=== PATIENT | female | born 1990 | race Caucasian/White ===

== ENCOUNTER 2021-03-19 12:52 | Emergency (ER) | payer SELFPAY ==
--- OUTSIDE RECORDS SUMMARY | 2021-03-19 12:55 | XMS REPORT | Continuity of Care Document ---
:1990 Author Organization [facility] t Address 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 Attending Clinician Problems Condition Condition Condition Status Onset Resolution Last Treating Co mments Source Name Details Category Date Date Treatment Clinician Date Chronic Chronic Disease Active Univers migraine migraine 10-17 ity of without without 00:00: [place] aura aura 00 Medical without without Branch status status migrainosu migrainosu s, not s, not intractabl intractabl e e Subacute Subacute Disease Active Unive rs maxillary maxillary 10-17 [place] of sinusitis [place]itis [place] Dental Dental Disease Active Univers caries caries 10-17 ity of 00:00: [place] 00 Medical Branch Nicotine Nicotine Disease Active Overview: Un marichuy dependence dependence 11-06 Formattin ity of with with 00:00: g of this [place] current current 00 note Medical use use might be Branch different from the original. 1 pack per day since 16 years old (10 pack-year as of 11/05) Chronic Chronic Disease Active Overview: Univ ers fatigue fatigue 11-06 Formattin ity o f 00:00: g of this [place] 00 note Medical might be Branch different from the original. Will be evaluated by GI in 11/2016 for associate d bowel issues and then hematolog y Generalize Generalize Disease Active U nivers d anxiety d anxiety 5-15 ity of disorder disorder 00:00: [place] 00 Medical Branch Abdominal Abdominal Disease Active Uni vers pain, pain, 5-01 ity of chronic, chronic, 00:00: [place] left lower left lower 00 Me dical quadrant quadrant Branch Leukocytos Leukocytos Disease Active U nivers is is 5-01 ity of 00:00: [place] 00 Medical Branch Obesity Obesity Disease Active Univers (BMI (BMI 3-09 ity of 30-39.9) 30-39.9) 00:00: [place] 00 Medical Branch Allergies, Adverse Reactions, Alerts Allergy Allergy Status Severity Reaction(s) Onset Inactive Treating Comm ents Source Name Type Date Date Clinician Metronid Propensi Active Dizziness Uni vers azole ty to 3-20 ity of adverse 00:00: [place] reaction 00 Medical s Branch METRONID DRUG Active Dizziness Unive rs AZOLE INGREDI 3-20 ity of 00:00: [place] 00 Medical Branch Social History Social Habit Start Date Stop Date Quantity Comments Source History of Cigarette Smoker Universi ty of tobacco use [facility] Exposure to Not sure University of SARS-CoV-2 [facility] (event) Branch Alcohol intake 2021-02-15 2021-02-15 0 /d University of 00:00:00 00:00:00 [facility] Tobacco use and 2015-08-30 2015-08-30 Never used Universit y of exposure 00:00:00 00:00:00 [facility] Sex Assigned At [birth year] Universit y of 00:00:00 00:00:00 [facility] Smoking Status Start Date Stop Date Source Current every day smoker 2015-08-30 00:00:00 Uni versity of [facility] Medications Ordered Filled Start Stop Current Ordering Indication Dosage Frequency Signature Comments Components Source Medication Medication Date Date Medication? Clinician (SIG) Name Name benzonatate 2020-04 Yes [id number] 100mg Take 1 Univers 100 mg 0-28 capsule by ity of capsule 00:00: mouth 3 [place] (three) Medical times Branch daily as needed for Cough. albuterol 2020-04 Yes [id number] 2{puff} Inhale 2 Univers 90 0-28 Puffs ity of mcg/actuati 00:00: every 4 [place] as on inhaler 00 (four) Medical hours as Branch needed for Wheezing or Shortness of Breath. bromphenira 2020-04- Yes [id number] 5mL Take 5 mL Univers mine-pseudo 0-26 02-24 by mouth 4 i ty of ephedrine-D 00:00: 04:59 (four) [place] as M (BROMFED 00 :00 times Medical DM) 2-30-10 daily as Bran ch mg/5 mL needed for syrup Congestion /Allergies or Cough for up to 10 days. bromphenira 2020-04- Yes [id number] 5mL Take 5 mL Univers mine-pseudo 0-26 02-24 by mouth 4 i ty of ephedrine-D 00:00: 04:59 (four) [place] M (BROMFED 00 :00 times Medical DM) 2-30-10 daily as Bran ch mg/5 mL needed for syrup Congestion /Allergies or Cough for up to 10 days. butalbital- Yes [id number] 1{capsu Take 1 Univers aspirin-caf 6-29 le} capsule by it y of feine 00:00: mouth [place] 50-325-40 00 every 6 Medical mg per (six) Branch capsule hours as needed for Pain (Migraine MORGAN). amoxicillin Yes [id number] 1{tbl} Take 1 Univers -clavulanat 6-29 tablet by ity of e 00:00: mouth 2 [place] (AUGMENTIN) 00 (two) Medical 875-125 mg times Branch per tablet daily. nicotine 14 Yes [id number] 1{patch Apply 1 Univers mg/24 hr 6-29 } Patch to ity of patch 00:00: area(s) [place] 00 every 24 Medical (twenty-fo Branch ur) hours. Apply 21mg patch daily x 6 weeks; then apply 14mf patch daily x 2 weeks; then apply 7mg patch daily x 2 weeks. Stop smoking on initiation of therapy nicotine 21 Yes [id number] 1{patch Apply 1 Univers mg/24 hr 6-29 } Patch to ity of patch 00:00: area(s) [place] 00 daily. Medical Apply 21mg Branch patch daily x 6 weeks; then apply 14mf patch daily x 2 weeks; then apply 7mg patch daily x 2 weeks. Stop smoking on initiation of therapy nicotine 7 Yes [id number] 1{patch Apply 1 Univers mg/24 hr 6-29 } Patch to ity of patch 00:00: area(s) [place] 00 every 24 Medical (twenty-fo Branch ur) hours. Apply 21mg patch daily x 6 weeks; then apply 14mf patch daily x 2 weeks; then apply 7mg patch daily x 2 weeks. Stop smoking on initiation of therapy fluticasone Yes [id number] 1{spray Use 1 Univers propionate 6-29 } [place] in ity o f 50 00:00: each [place] mcg/actuati 00 nostril Medic al on nasal daily. Branch spray butalbital- Yes [id number] 1{capsu Take 1 Univers aspirin-caf 6-29 le} capsule by it y of feine 00:00: mouth [place] 50-325-40 00 every 6 Medical mg per (six) Branch capsule hours as needed for Pain (Migraine MORGAN). amoxicillin Yes [id number] 1{tbl} Take 1 Univers -clavulanat 6-29 tablet by ity of e 00:00: mouth 2 [place] (AUGMENTIN) 00 (two) Medical 875-125 mg times Branch per tablet daily. nicotine 14 Yes [id number] 1{patch Apply 1 Univers mg/24 hr 6-29 } Patch to ity of patch 00:00: area(s) [place] 00 every 24 Medical (twenty-fo Branch ur) hours. Apply 21mg patch daily x 6 weeks; then apply 14mf patch daily x 2 weeks; then apply 7mg patch daily x 2 weeks. Stop smoking on initiation of therapy nicotine Yes [id number] 1{patch Apply 1 Univers mg/24 hr 6-29 } Patch to ity of patch 00:00: area(s) [place] 00 daily. Medical Apply 21mg Branch patch daily x 6 weeks; then apply 14mf patch daily x 2 weeks; then apply 7mg patch daily x 2 weeks. Stop smoking on initiation of therapy nicotine 7 Yes [id number] 1{patch Apply 1 Univers mg/24 hr 6-29 } Patch to ity of patch 00:00: area(s) [place] 00 every 24 Medical (twenty-fo Branch ur) hours. Apply 21mg patch daily x 6 weeks; then apply 14mf patch daily x 2 weeks; then apply 7mg patch daily x 2 weeks. Stop smoking on initiation of therapy fluticasone Yes [id number] 1{spray Use 1 Univers propionate 10-17 } [place] in ity o f 50 00:00: each [place] mcg/actuati 00 nostril Medic al on nasal daily. Branch spray Vital Signs Vital Name Observation Time Observation Value Comments Source Body height 2021-02-16 02:18:00 152.4 cm Universi ty [facility] Body weight 2021-02-16 02:18:00 90.266 kg Universi ty [facility] BMI 2021-02-16 02:18:00 38.86 kg/m2 [facility] Oxygen saturation in 2021-02-16 02:18:00 99 /min [facility] Arterial blood by [facility] [place] [facility] Pulse oximetry Branch Systolic blood 2021-02-16 02:18:00 131 mm[Hg] Univer sity of [facility] Diastolic blood 2021-02-16 02:18:00 81 mm[Hg] [facility] Heart rate 2021-02-16 02:18:00 [facility] Body temperature 2021-02-16 02:18:00 37.22 Qi [facility] Res[facility] rate 2021-02-16 02:18:00 18 /min [facility] Systolic blood 2021-02-13 14:34:00 125 mm[Hg] Univer sity of [facility] Diastolic blood 2021-02-13 14:34:00 74 mm[Hg] [facility] Heart rate 2021-02-13 14:34:00 103 /min Universi ty [facility] Body temperature 2021-02-13 14:34:00 37.56 Qi [facility] Respiratory rate 2021-02-13 14:34:00 18 /min [facility] Body height 2021-02-13 14:34:00 152.4 cm Universi ty [facility] Body weight 2021-02-13 14:34:00 [facility] 2021-02-13 14:34:00 39.04 kg/m2 Universi ty of [facility] Oxygen saturation in 2021-02-13 14:34:00 98 /min [facility] Arterial blood by [facility] [place] [facility] Pulse oximetry Branch Procedures Procedure Date / Time Performed Performing Clinician [facility] CONSENT/REFUSAL FOR 2021-02-16 02:11:53 Doctor Unassigned, No Un [facility] DIAGNOSIS AND Name Medical Branch TREATMENT POCT GRP A STREP 2021-02-13 15:09:00 Koko Killian [facility] (MOLECULAR) Medical Branch Encounters Start End Encounter Admission Attending Care Care Encounter Source Date/Time Date/Time Type Type Clinicians Facility Department ID 2021-02-18 Emergency [facility] [id number] Univers 09:18:43 ity [facility] 2021-02-15 Emergency [facility] [id number] [facility] 2021-02-15 2021-02-15 Emergency X PIYUSH [facility] ERT [id number] Univers 21:20:00 21:42:00 NICCI [facility] 2021-02-15 2021-02-15 [facility] [id number] Univers 21:20:00 21:42:00 Nicci S [place] [id number] i ty [facility] [id number] [place] [id number] [facility] 084 Branch 2021-02-13 2021-02-13 Outpatient R [facility] [id number] Univers 10:00:00 10:00:00 [id number] [facility] 2021-02-13 2021-02-13 Outpatient R TRESSA [facility] [id number] Univers 10:00:00 10:00:00 BECCA [facility] 2021-02-13 2021-02-13 Urgent Provider, [facility] [id number] Univers 09:26:05 09:46:05 Juan J Bustillos [facility] [id number] ity [facility] [id number] [place] as Chap[place]?Blea [id number] Or dical [address] Medical Office Building 2020-10-17 2020-10-17 Outpatient [facility] [id number] Univers 19:45:00 19:45:00 [id number] [facility] 2020-10-17 2020-10-17 Outpatient Nancy BUSTILLOS [facility] [id number] Univers 19:45:00 19:45:00 BECCA [facility] Results Test Description Test Time Test Comments Results Result Comments Source POCT GRP A STREP (MOLECULAR) 2021-02-13 15:09:00 Test Item Value Reference Range Interpretation Comme nts POCT GP A STREP (test code = 40372-9) Negative Negative - Negat romero Lab Interpretation (test code = 99793-8) Normal [facility]
[2021-03-19] MEDS ORDERED: MORPHINE 4 MG/ML SYR ONE (15:01)
[2021-03-19] MEDS ORDERED: ONDANSETRON 4 MG/2 ML VIAL ONE (15:01)
[2021-03-19 15:20] LABS: Urine Blood Negative (Negative); Urine Glucose Negative (Negative); Urine Protein Negative (Negative); Urine Specific Gravity 1.025 (1.005-1.030)
[2021-03-19 15:26] LABS: Absolute Lymphocytes (CBC) 3.9 K/uL (0.7-4.9); Basophils % 0.7 % (0-1.3); Hematocrit 41.2 % (36.0-45.0); Lymphocytes % 26.5 % (15.3-44.8); MPV 8.2 fL (7.6-11.3); RBC Red Blood Cell Count 4.93 M/uL (3.86-4.86)
[2021-03-19 15:56] LABS: Urine Bacteria <20 /HPF (<20); Urine Mucus 1+ /HPF (NONE SEEN); Urine RBC <5 /HPF (NONE SEEN)
[2021-03-19 16:04] LABS: ALT/SGPT 31 U/L (12-78); AST/SGOT 19 U/L (15-37); Albumin 3.2 g/dL (3.4-5.0); Alkaline Phosphatase 102 U/L (45-117); BUN Blood Urea Nitrogen 8 mg/dL (7-18); Bicarbonate 26 mmol/L (21-32); Bilirubin Direct < 0.1 mg/dL (0-0.2); Bilirubin Total 0.2 mg/dL (0.2-1.0); Glucose Level 105 mg/dL (74-106); Lipase 165 U/L (73-393); Potassium 3.8 mmol/L (3.5-5.1); Protein, Total 7.3 g/dL (6.4-8.2); Sodium Level 141 mmol/L (136-145)
[2021-03-19 16:16] LABS: Urine Specific Gravity/Preg 1.025 (1.005-1.030)
--- NOTE | 2021-03-19 16:25 | RAD REPORT ---
EXAM DESCRIPTION: CTAbdomen Pelvis W Contrast - 03/19/2021 4:18 pm CLINICAL HISTORY: Abdominal pain. ABD PAIN COMPARISON: No comparisons TECHNIQUE: Biphasic CT imaging of the abdomen and pelvis was performed with 100 ml non-ionic IV cont rast. All CT scans are performed using dose optimization technique as appropriate and may include automated exposure control or mA/KV adjustment according to patient size. FINDINGS: The lung bases are clear. The liver, pancreas, adrenal glands and kidneys are within normal limits. Several small low-density l esions are present in the spleen. No bowel obstruction, free air, free fluid or abscess. The appendix is normal. No evidence of signi ficant lymphadenopathy. No suspicious bony findings. Arcuate uterus is suspected. IMPRESSION: No acute intra-abdominal or pelvic finding. Small low-density splenic lesions are nonspecific and probably benign. However, recommend six-month f ollow-up ultrasound of the spleen for reassessment.
--- NOTE | 2021-03-19 16:45 | ER ---
Nurse's Notes [facility] Name: Anna Pizarro Age: 30 yrs Sex: Female : 1990 Arrival Date: 03/19/2021 Time: 12:55 Bed 2 Private MD: Diagnosis: Abdominal pain, unspecified Presentation: 03/19 13:19 Chief complaint: Patient states: abd pain/ cramping that began 1 week ago. Pt states, ss "It feels like I'm having a period without the bleeding." Pt reports that she has seen her PCP for this and has had an ultrasound which was negative. Pt states, "My uterus is heart shaped and they've given me medications for PCOS.". Coronavirus screen: Client denies travel out of the [place] in the last 14 days. Ebola Screen: Patient denies exposure to infectious person. Patient denies travel to an Ebola-affected area in the 21 days before illness onset. Initial Sepsis Screen: Does the patient meet any 2 criteria? No. Patient's initial sepsis screen is negative. Does the patient have a suspected source of infection? No. Patient's initial sepsis screen is negative. Risk Assessment: Do you want to hurt yourself or someone else? Patient reports no desire to harm self or others. Onset of symptoms was March 18, 2021. 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 - Social history:: Smoking status: Patient reports the use of cigarette tobacco products, smokes one-half pack cigarettes per day. Screenin:49 Abuse screen: Denies threats or abuse. Nutritional screening: No deficits noted. vg1 Tuberculosis screening: No symptoms or risk factors identified. Fall Risk No fall in past 12 months (0 pts). No secondary diagnosis (0 pts). IV access (20 points). Ambulatory Aid- None/Bed Rest/Nurse Assist (0 pts). Gait- Normal/Bed Rest/Wheelchair (0 pts) Mental Status- Oriented to own ability (0 pts). Total Coronel Fall Scale indicates No Risk (0-24 pts). Assessment: 14:48 General: Appears in no apparent distress. uncomfortable, Behavior is calm, cooperative. vg1 Pain: Complains of pain in left lower quadrant, left flank, and lower back Pain currently is 7 out of 10 on a pain scale. Pain began x 1 week Also complains of nausea. Neuro: Level of Consciousness is awake, alert, obeys commands, Oriented to person, place, time, situation. Cardiovascular: Patient's skin is warm and dry. Respiratory: Airway is patent Respiratory effort is even, unlabored. GI: Abdomen is round non-distended, Bowel sounds present X 4 quads. Abdomen is tender to palpation in left lower quadrant. : No signs and/or symptoms were reported regarding the genitourinary system. EENT: No signs and/or symptoms were reported regarding the EENT system. Derm: Skin is intact, is healthy with good turgor. Musculoskeletal: Circulation, motion, and sensation intact. 16:25 Reassessment: Patient appears in no apparent distress at this time. No changes from jd3 previously documented assessment. Patient and/or family updated on plan of care and expected duration. Pain level reassessed. Patient is alert, oriented x 3, equal unlabored respirations, skin warm/dry/pink. 17:17 Reassessment: Patient appears in no apparent distress at this time. Patient and/or jd3 family updated on plan of care and expected duration. Pain level reassessed. Patient is alert, oriented x 3, equal unlabored respirations, skin warm/dry/pink. Patient states feeling better. Vital Signs: 13:19 BP 124 / 87; Pulse 95; Resp 15; Temp 97.8(TE); Pulse Ox 99% on R/A; Weight 90.72 kg; ss Height 5 ft. 0 in. (152.40 cm); Pain 8/10; 14:49 BP 109 / 94; Pulse 77; Resp 16; Pulse Ox 98% ; vg1 16:25 BP 112 / 85; Pulse 81; Resp 17 S; Pulse Ox 99% on R/A; jd3 13:19 Body Mass Index 39.06 (90.72 kg, 152.40 cm) ED Course: 12:55 Patient arrived in ED. mr 13:21 Triage completed. ss 13:21 Arm band placed on right wrist. ss 14:40 Elisa Blum RN is Primary Nurse. vg1 14:41 Paul Grady NP is PHCP. pm1 14:41 Hernando Perry MD is Attending Physician. pm1 14:49 Placed in gown. Bed in low position. Call light in reach. Side rails up X 1. Adult w/ vg1 patient. 15:15 Initial lab(s) drawn, by me, sent to lab. Inserted saline lock: 22 gauge in right vg1 antecubital area, using aseptic technique. Blood collected. 16:14 Primary Nurse role handed off by Elisa Blum RN bd 16:18 CT Abd/Pelvis - IV Contrast Only In Process Unspecified. EDMS 16:24 Gus Quintana RN is Primary Nurse. jd3 17:17 No provider procedures requiring assistance completed. IV discontinued, intact, jd3 bleeding controlled, No redness/swelling at site. Pressure dressing applied. Administered Medications: 15:12 Drug: Zofran (Ondansetron) 4 mg Route: IVP; Site: right antecubital; vg1 16:12 Follow up: Response: No adverse reaction jd3 15:14 Drug: morphine 4 mg Route: IVP; Site: right antecubital; vg1 16:14 Follow up: Response: No adverse reaction; RASS: Alert and Calm (0) jd3 Outcome: 16:44 Discharge ordered by MD. pm1 17:17 Discharged to home ambulatory, with family. jd3 17:17 Condition: stable 17:17 Discharge instructions given to patient, family, Instructed on discharge instructions, follow up and referral plans. medication usage, Demonstrated understanding of instructions, follow-up care, medications, Prescriptions given X 1. 17:21 Patient left the ED. jd3 Signatures: Dispatcher [employer] EDMS Nevin Ahuja Mark, Marisa Rachel Haji, MILES RN ss Paul Grady, CIARA LUGGAGE LINER pm1 Gus Quintana RN RN jElisa Gamino RN RN kit [facility]
--- NOTE | 2021-03-19 16:45 | EDPHYS ---
Physician Documentation [facility] Name: Anna Pizarro Age: 30 yrs Sex: Female : 1990 Arrival Date: 03/19/2021 Time: 12:55 Bed 2 Private MD: ED Physician Hernando Perry HPI: 03/19 14:52 This 30 yrs old Female presents to ER via Ambulatory with complaints of Abdominal Pain. pm1 14:52 The patient presents with abdominal pain in the left lower quadrant. Onset: The pm1 symptoms/episode began/occurred 1 week(s) ago. The symptoms do not radiate. Associated signs and symptoms: none. Pertinent negatives: nausea, vomiting, and diarrhea, chest pain, dysuria, fever, shortness of breath. The symptoms are described as crampy. Modifying factors: The symptoms are alleviated by nothing, the symptoms are aggravated by nothing. Severity of pain: in the emergency department the pain is unchanged. The patient has not experienced similar symptoms in the past. The patient has been recently seen by a physician: the patient's primary care provider, with similar presenting complaints, an ultrasound was done, informed negative . 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 - Social history:: Smoking status: Patient reports the use of cigarette tobacco products, smokes one-half pack cigarettes per day. ROS: 16:56 Constitutional: Negative for fever, chills, and weight loss, Cardiovascular: Negative pm1 for chest pain, palpitations, and edema, Respiratory: Negative for shortness of breath, cough, wheezing, and pleuritic chest pain. 16:56 Back: Negative for injury and pain, : Negative for injury, bleeding, discharge, and swelling, MS/Extremity: Negative for injury and deformity, Skin: Negative for injury, rash, and discoloration, Neuro: Negative for headache, weakness, numbness, tingling, and seizure. 16:56 Abdomen/GI: Positive for abdominal pain, of the left lower quadrant, Negative for nausea, vomiting, and diarrhea. 16:56 All other systems are negative. Exam: 16:56 Constitutional: This is a well developed, well nourished patient who is awake, alert, pm1 and in no acute distress. Head/Face: Normocephalic, atraumatic. 16:56 Skin: Warm, dry with normal turgor. Normal color with no rashes, no lesions, and no evidence of cellulitis. MS/ Extremity: Pulses equal, no cyanosis. Neurovascular intact. Full, normal range of motion. 16:56 Cardiovascular: Exam negative for acute changes, Rate: normal, Rhythm: regular, Pulses: no pulse deficits are appreciated, Heart sounds: normal, normal S1and S2. 16:56 Respiratory: Exam negative for acute changes, respiratory distress, shortness of breath, Breath sounds: are clear throughout. 16:56 Abdomen/GI: Exam negative for acute changes, Inspection: abdomen appears normal, Palpation: abdomen is soft and non-tender, in all quadrants. 16:56 Neuro: Exam negative for acute changes, Orientation: is normal, Mentation: is normal, Motor: is normal, moves all fours. Vital Signs: 13:19 BP 124 / 87; Pulse 95; Resp 15; Temp 97.8(TE); Pulse Ox 99% on R/A; Weight 90.72 kg; ss Height 5 ft. 0 in. (152.40 cm); Pain 8/10; 14:49 BP 109 / 94; Pulse 77; Resp 16; Pulse Ox 98% ; vg1 16:25 BP 112 / 85; Pulse 81; Resp 17 S; Pulse Ox 99% on R/A; jd3 13:19 Body Mass Index 39.06 (90.72 kg, 152.40 cm) ss MDM: 14:41 Patient medically screened. pm1 16:43 Data reviewed: vital signs. Data interpreted: Pulse oximetry: on room air is 99 %. pm1 Interpretation: normal. Counseling: I had a detailed discussion with the patient and/or guardian regarding: the historical points, exam findings, and any diagnostic results supporting the discharge/admit diagnosis, lab results, radiology results, the need for outpatient follow up, to return to the emergency department if symptoms worsen or persist or if there are any questions or concerns that arise at home. 16:52 ED course: PMPAware. pm1 03/19 14:52 Order name: Basic Metabolic Panel pm1 03/19 14:52 Order name: CBC with Diff; Complete Time: 15:45 pm1 03/19 14:52 Order name: Hepatic Function; Complete Time: 16:28 pm1 03/19 14:52 Order name: Lipase; Complete Time: 16:28 pm1 03/19 14:52 Order name: Urine Microscopic Only; Complete Time: 16:00 pm1 03/19 14:52 Order name: Basic Metabolic Panel; Complete Time: 16:28 EDMS 03/19 14:52 Order name: IV Saline Lock; Complete Time: 15:15 pm1 03/19 14:52 Order name: Labs collected and sent; Complete Time: 15:15 pm1 03/19 14:52 Order name: CT Abd/Pelvis - IV Contrast Only; Complete Time: 16:28 pm1 03/19 15:20 Order name: Urine Dipstick-Ancillary; Complete Time: 15:45 EDMS 03/19 15:23 Order name: Urine --Ancillary (enter results) bd 03/19 15:24 Order name: Urine --Ancillary; Complete Time: 16:28 EDMS 03/19 14:52 Order name: Urine Dipstick-Ancillary (obtain specimen); Complete Time: 15:20 pm1 03/19 14:52 Order name: Urine Test (obtain specimen); Complete Time: 15:20 pm1 Administered Medications: 15:12 Drug: Zofran (Ondansetron) 4 mg Route: IVP; Site: right antecubital; vg1 16:12 Follow up: Response: No adverse reaction jd3 15:14 Drug: morphine 4 mg Route: IVP; Site: right antecubital; vg1 16:14 Follow up: Response: No adverse reaction; RASS: Alert and Calm (0) jd3 Disposition: 03/20 08:48 Co-signature as Attending Physician, Hernando Perry MD I agree with the assessment and marylu plan of care. Disposition Summary: 03/19/21 16:44 Discharge Ordered Location: Home pm1 Problem: new pm1 Symptoms: have improved pm1 Condition: Stable pm1 Diagnosis - Abdominal pain, unspecified pm1 Followup: pm1 - With: Emergency Department - When: As needed - Reason: Worsening of condition Followup: pm1 - With: Private Physician - When: 2 - 3 days - Reason: Recheck today's complaints, Continuance of care, Re-evaluation by your physician Discharge Instructions: - Discharge Summary Sheet pm1 - Abdominal Pain, Adult pm1 Forms: - Medication Reconciliation Form pm1 - Thank You Letter pm1 - Antibiotic Education pm1 - Prescription Opioid Use pm1 Prescriptions: - acetaminophen-codeine 300-15 mg Oral tablet - take 2 tablet by ORAL route every 6 hours As needed as needed; 20 tablet; pm1 Refills: 0, Product Selection Permitted Signatures: Dispatcher [employer] EDHernando Rodriguez MD MD cha Smirch, Shelby, RN RN ss Paul Grady NP CLAY CARMAN pm1 Elisa Blum RN RN vg1 Gus Quintana RN jd3 Corrections: (The following items were deleted from the chart) 03/19 16:57 14:52 The patient has been recently seen by a physician: with similar presenting pm1 complaints, another ER, pm1
[2021-03-19 17:37] VITALS: TEMP 97.8
[2021-03-19 17:40] VITALS: BP 112/85; O2SAT 99
== END 2021-03-19 17:21 | disposition home or self-care (01) ==
LOC: ER 12:52
DX: R10.32 Left lower quadrant pain (principal); F17.210 Nicotine dependence, cigarettes, uncomplicated
CPT/HCPCS: 36415; 74177; 80048; 80076; 81003; 81015; 81025; 83690; 85025; 96374; 96375; 99284; J2405; Q9967

== ENCOUNTER 2021-11-29 10:16 | Emergency (ER) | payer SELFPAY ==
--- OUTSIDE RECORDS SUMMARY | 2021-11-29 10:19 | XMS REPORT | Continuity of Care Document ---
:1990 Author Organization [facility] t Address [address] [place] [address] Care Team Providers Name Role Phone PCP, PATIENT DOES NOT HAVE A Primary Care Physician Unavaila MYA Sepulveda Attending Clinician Unavailable Mya Jackson DO Attending Clinician Melony Forrest LMSW Attending Clinician Unavailable NICCI PICKETT Attending Clinician Unavailable Nicci Desir Attending Clinician MAGALI BUSTILLOS Attending Clinician Unavailable Provider, [facility] Attending Clinician Unavailable Magali Cross Attending Clinician EDI GRAY Attending Clinician Unavailable EDI GRAY Admitting Clinician Unavailable Problems Condition Condition Condition Status Onset Resolution [...] Dental Dental Disease Active Univers caries caries - ity of 00:00: [place] 00 Medical Branch Nicotine Nicotine Disease Active Overview: Un marichuy dependence dependence 7-19 Formattin ity of with with 00:00: g of this [place] current current 00 note Medical use use might be Branch different from the original. 1 pack per day since 16 years old (10 pack-year as of 11/05) Chronic Chronic Disease Active Overview: Univ ers fatigue fatigue 7-19 Formattin ity o f 00:00: g of this 00 note Medical might be Branch different from the original. Will be evaluated by GI in 11/2016 for associate d bowel issues and then hematolog y Generalize Generalize Disease Active U nivdante d anxiety d anxiety 5-15 ity of disorder disorder 00:00: [place] 00 Medical Branch Abdominal Abdominal Disease Active Uni vers pain, pain, 5-01 ity of chronic, chronic, 00:00: [place] left lower left lower 00 Me dical quadrant quadrant Branch Leukocytos Leukocytos Disease Active U nivers is is 5- ity of 00:00: [place] 00 Medical Branch Obesity Obesity Disease Active Univers (BMI (BMI 3-09 ity of 30-39.9) 30-39.9) 00:00: [place] 00 Medical Branch Allergies, Adverse Reactions, Alerts Allergy Allergy Status Severity Reaction(s) Onset Inactive Treating Comm ents Source Name Type Date Date Clinician Metronid Propensi Active Dizziness Uni vers azole ty to 3-20 ity of adverse 00:00: [place] reaction 00 Medical s Branch METRONID DRUG Active Dizziness Unive rs AZOLE INGREDI 3-20 ity of 00:00: [address] Social History Social Habit Start Date Stop Date Quantity Comments Source History of Cigarette Smoker Universi ty of tobacco use [facility] Exposure to 2021-09-24 2021-10-04 Not sure [facility] SARS-CoV-2 00:00:00 10:45:00 [facility] (event) Branch Alcohol intake 2021-10-04 2021-10-04 0 /d University of 00:00:00 00:00:00 [facility] Tobacco use and 2015-08-30 2015-08-30 Never used Universit y of exposure 00:00:00 00:00:00 [facility] Sex Ass[birth year] At [birth year] Universit y of 00:00:00 00:00:00 [facility] Smoking Status Start Date Stop Date Source Current every day smoker 2015-08-30 00:00:00 Uni versity of [facility] Medications Ordered Filled Start Stop Current Ordering Indication Dosage Frequency Signature Comments Components Source Medication Medication Date Date Medication? Clinician (SIG) Name Name HYDROcodone 2021- No 1{tbl} 1 tablet, Univers -acetaminop 10-0416 Oral, ity of hen (NORCO 17:00: 15:52 ONCE, 1 [place] as 5) 5-325 mg 00 :00 dose, On Medi alba tablet 1 [place] Branch tablet 10/04/21 at 1200, YO benzonatate 2020-04 Yes [id number] 100mg Take 1 Univers 100 mg 0-28 capsule by ity of capsule 00:00: mouth 3 [place] 00 (three) Medical times Branch daily as needed for Cough. albuterol 2020-04 Yes [id number] 2{puff} Inhale 2 Univers 90 0-28 Puffs ity of mcg/actuati 00:00: every 4 [place] as on inhaler 00 (four) Medical hours as Branch needed for Wheezing or Shortness of Breath. benzonatate 2020-04 Yes [id number] 100mg Take 1 Univers 100 mg 0-28 capsule by ity of capsule 00:00: mouth 3 (three) Medical times Branch daily as needed for Cough. albuterol 2020-04 Yes [id number] 2{puff} Inhale 2 Univers 90 0-28 Puffs ity of mcg/actuati 00:00: every 4 [place] as on inhaler 00 (four) Medical hours as Branch needed for Wheezing or Shortness of Breath. benzonatate 2020-04 Yes [id number] 100mg Take 1 Univers 100 mg 0-28 capsule by ity of capsule 00:00: mouth 3 [place] 00 (three) Medical times Branch daily as needed for Cough. albuterol 2020-04 Yes [id number] 2{puff} Inhale 2 Univers 90 0-28 Puffs ity of mcg/actuati 00:00: every 4 [place] as on inhaler 00 (four) Medical hours as Branch needed for Wheezing or Shortness of Breath. bromphenira 2020-04- No [id number] 5mL Take 5 mL Univers mine-pseudo 002-24 by mouth 4 i ty of ephedrine-D 00:00: 04:59 (four) [place] as M (BROMFED 00 :00 times Medical DM) 2-30-10 daily as Bran ch mg/5 mL needed for syrup Congestion /Allergies or Cough for up to 10 days. bromphenira 2020-04- No [id number] 5mL Take 5 mL Univers mine-pseudo 0-26 11-06 by mouth 4 i ty of ephedrine-D 00:00: 04:59 (four) [place] as M (BROMFED 00 :00 times Medical DM) 2-30-10 daily as Bran ch mg/5 mL needed for syrup Congestion /Allergies or Cough for up to 10 days. butalbital- Yes [id number] 1{capsu Take 1 Univers aspirin-caf 6-29 le} capsule by it y of feine 00:00: mouth [place] 50-325-40 00 every 6 Medical mg per (six) Branch capsule hours as needed for Pain (Migraine MORGAN). amoxicillin Yes [id number] 1{tbl} Take 1 Univers -clavulanat 6-29 tablet by ity of e 00:00: mouth 2 [place] (AUGMENTIN) 00 (two) Medical 875-125 mg times Branch per tablet daily. nicotine Yes [id number] 1{patch Apply 1 Univers mg/24 hr 6-29 } Patch to ity of patch 00:00: area(s) [place] 00 every 24 Medical (twenty-fo Branch ur) hours. Apply 21mg patch daily x 6 weeks; then apply 14mf patch daily x 2 weeks; then apply 7mg patch daily x 2 weeks. Stop smoking on initiation of therapy nicotine Yes [id number] 1{patch Apply 1 Univers mg/24 hr 6-29 } Patch to ity of patch 00:00: area(s) [place] 00 daily. Medical Apply 21mg Branch patch daily x 6 weeks; then apply 14mf patch daily x 2 weeks; then apply 7mg patch daily x 2 weeks. Stop smoking on initiation of therapy nicotine 7 Yes [id number] 1{patch Apply 1 Univers mg/24 hr 6-29 } Patch to ity of patch 00:00: area(s) [place] 00 every 24 Medical (twenty-fo Branch ur) hours. Apply 21mg patch daily x 6 weeks; then apply 14mf patch daily x 2 weeks; then apply 7mg patch daily x 2 weeks. Stop smoking on initiation of therapy fluticasone Yes [id number] 1{spray Use 1 Univers propionate 6-29 } [place] in ity o f 50 00:00: each [place] mcg/actuati 00 nostril Medic al on nasal daily. Branch spray butalbital- Yes [id number] 1{capsu Take 1 Univers aspirin-caf 6-29 le} capsule by it y of feine 00:00: mouth [place] 50-325-40 00 every 6 Medical mg per (six) Branch capsule hours as needed for Pain (Migraine MORGAN). amoxicillin Yes [id number] 1{tbl} Take 1 Univers -clavulanat 6-29 tablet by ity of e 00:00: mouth 2 [place] (AUGMENTIN) 00 (two) Medical 875-125 mg times Branch per tablet daily. nicotine Yes [id number] 1{patch Apply 1 Univers mg/24 hr 6-29 } Patch to ity of patch 00:00: area(s) [place] 00 every 24 Medical (twenty-fo Branch ur) hours. Apply 21mg patch daily x 6 weeks; then apply 14mf patch daily x 2 weeks; then apply 7mg patch daily x 2 weeks. Stop smoking on initiation of therapy nicotine Yes [id number] 1{patch Apply 1 Univers mg/24 hr 6-29 } Patch to ity of patch 00:00: area(s) [place] 00 daily. Medical Apply 21mg Branch patch daily x 6 weeks; then apply 14mf patch daily x 2 weeks; then apply 7mg patch daily x 2 weeks. Stop smoking on initiation of therapy nicotine 7 Yes [id number] 1{patch Apply 1 Univers mg/24 hr 6-29 } Patch to ity of patch 00:00: area(s) [place] 00 every 24 Medical (twenty-fo Branch ur) hours. Apply 21mg patch daily x 6 weeks; then apply 14mf patch daily x 2 weeks; then apply 7mg patch daily x 2 weeks. Stop smoking on initiation of therapy fluticasone Yes [id number] 1{spray Use 1 Univers propionate 6-29 } [place] in ity o f 50 00:00: each [place] mcg/actuati 00 nostril Medic al on nasal daily. Branch spray butalbital- Yes [id number] 1{capsu Take 1 Univers aspirin-caf 6-29 le} capsule by it y of feine 00:00: mouth [place] 50-325-40 00 every 6 Medical mg per (six) Branch capsule hours as needed for Pain (Migraine MORGAN). amoxicillin Yes [id number] 1{tbl} Take 1 Univers -clavulanat 6-29 tablet by ity of e 00:00: mouth 2 [place] (AUGMENTIN) 00 (two) Medical 875-125 mg times Branch per tablet daily. nicotine Yes [id number] 1{patch Apply 1 Univers mg/24 hr 6-29 } Patch to ity of patch 00:00: area(s) [place] 00 every 24 Medical (twenty-fo Branch ur) hours. Apply 21mg patch daily x 6 weeks; then apply 14mf patch daily x 2 weeks; then apply 7mg patch daily x 2 weeks. Stop smoking on initiation of therapy nicotine Yes [id number] 1{patch Apply 1 Univers mg/24 hr 6-29 } Patch to ity of patch 00:00: area(s) [place] 00 daily. Medical Apply 21mg Branch patch daily x 6 weeks; then apply 14mf patch daily x 2 weeks; then apply 7mg patch daily x 2 weeks. Stop smoking on initiation of therapy nicotine 7 Yes [id number] 1{patch Apply 1 Univers mg/24 hr 6-29 } Patch to ity of patch 00:00: area(s) [place] 00 every 24 Medical (twenty-fo Branch ur) hours. Apply 21mg patch daily x 6 weeks; then apply 14mf patch daily x 2 weeks; then apply 7mg patch daily x 2 weeks. Stop smoking on initiation of therapy fluticasone Yes [id number] 1{spray Use 1 Univers propionate 6-29 } [place] in ity o f 50 00:00: each [place] mcg/actuati 00 nostril Medic al on nasal daily. Branch spray butalbital- Yes [id number] 1{capsu Take 1 Univers aspirin-caf 6-29 le} capsule by it y of feine 00:00: mouth [place] 50-325-40 00 every 6 Medical mg per (six) Branch capsule hours as needed for Pain (Migraine MORGAN). amoxicillin Yes [id number] 1{tbl} Take 1 Univers -clavulanat 6-29 tablet by ity of e 00:00: mouth 2 [place] (AUGMENTIN) 00 (two) Medical 875-125 mg times Branch per tablet daily. nicotine 14 Yes [id number] 1{patch Apply 1 Univers mg/24 hr 6-29 } Patch to ity of patch 00:00: area(s) [place] 00 every 24 Medical (twenty-fo Branch ur) hours. Apply 21mg patch daily x 6 weeks; then apply 14mf patch daily x 2 weeks; then apply 7mg patch daily x 2 weeks. Stop smoking on initiation of therapy nicotine Yes [id number] 1{patch Apply 1 Univers mg/24 hr 6-29 } Patch to ity of patch 00:00: area(s) [place] 00 daily. Medical Apply 21mg Branch patch daily x 6 weeks; then apply 14mf patch daily x 2 weeks; then apply 7mg patch daily x 2 weeks. Stop smoking on initiation of therapy nicotine 7 Yes [id number] 1{patch Apply 1 Univers mg/24 hr 6-29 } Patch to ity of patch 00:00: area(s) [place] 00 every 24 Medical (twenty-fo Branch ur) hours. Apply 21mg patch daily x 6 weeks; then apply 14mf patch daily x 2 weeks; then apply 7mg patch daily x 2 weeks. Stop smoking on initiation of therapy fluticasone Yes [id number] 1{spray Use 1 Univers propionate 6-29 } [place] in ity o f 50 00:00: each [place] mcg/actuati 00 nostril Medic al on nasal daily. Branch spray Vital Signs Vital Name Observation Time Observation Value Comments Source Systolic blood 2021-10-04 17:39:00 120 mm[Hg] Univer sity [facility] [place] [facility] Diastolic blood 2021-10-04 17:39:00 80 mm[Hg] [facility] Heart rate 2021-10-04 17:39:00 73 /min [facility] Respiratory rate 2021-10-04 17:39:00 18 /min [facility] Oxygen saturation in 2021-10-04 17:39:00 97 /min [facility] Arterial blood by [facility] Pulse oximetry Branch Body temperature 2021-10-04 15:46:00 37.5 Qi Univ ers[facility] [place] [facility] Body height 2021-10-04 15:46:00 152.4 cm [facility] ty [facility] [place] [facility] Body weight 2021-10-04 15:46:00 81.647 kg [facility] [place] [facility] BMI 2021-10-04 15:46:00 35.15 kg/m2 [facility] [place] [facility] Body height 2021-02-16 02:18:00 152.4 cm [facility] [place] [facility] Body weight 2021-02-16 02:18:00 90.266 kg [facility] [place] [facility] BMI 2021-02-16 02:18:00 38.86 kg/m2 Universi ty of [facility] Oxygen saturation in 2021-02-16 02:18:00 99 /min University Arterial blood by [facility] Pulse oximetry Branch Systolic blood 2021-02-16 02:18:00 131 mm[Hg] Univer sity of pressure [facility] Diastolic blood 2021-02-16 02:18:00 81 mm[Hg] Unive rsity of pressure [facility] Heart rate 2021-02-16 02:18:00 99 /min [facility]i [facility] [place] [facility] Body temperature 2021-02-16 02:18:00 37.22 Qi Univ ersity of [facility] Branch Respiratory rate 2021-02-16 02:18:00 18 /min [facility] [place] [facility] Systolic blood 2021-02-13 14:34:00 125 mm[Hg] Univer sity of pressure [place] [facility] Diastolic blood 2021-02-13 14:34:00 74 mm[Hg] Unive rsity of pressure [facility] Heart rate 2021-02-13 14:34:00 103 /min [facility]i ty [facility] [place] [facility] Body temperature 2021-02-13 14:34:00 37.56 Qi Univ ersity of [facility] Branch Respiratory rate 2021-02-13 14:34:00 18 /min Univ ersity of [facility] Branch Body height 2021-02-13 14:34:00 152.4 cm [facility] [place] [facility] Body weight 2021-02-13 14:34:00 90.674 kg [facility] [place] [facility] BMI 2021-02-13 14:34:00 39.04 kg/m2 Universi ty of [facility] Branch Oxygen saturation in 2021-02-13 14:34:00 98 /min University of Arterial blood by [facility] Pulse oximetry Branch Procedures Procedure Date / Time Performed Performing Clinician Sour e NOTICE OF PRIVACY 2021-10-04 15:41:13 Doctor Unassigned, No [facility] [place] [facility] Name Medical Branch CONSENT/REFUSAL FOR 2021-10-04 15:40:49 Doctor Unassigned, No [facility] [place] DIAGNOSIS AND Name Medical Branch TREATMENT CONSENT/REFUSAL FOR 2021-02-16 02:11:53 Doctor Unassigned, No [facility] [place] DIAGNOSIS AND Name Medical Branch TREATMENT POCT GRP A STREP 2021-02-13 15:09:00 Koko Killian [facility] (MOLECULAR) Medical Branch Encounters Start End Encounter Admission Attending Care Care Encounter Source Date/Time Date/Time Type Type Clinicians Facility Department ID 2021-02-18 Emergency [facility] [id number] Univers 09:18:43 ity of [facility] 2021-10-04 2021-10-04 Emergency X EVY RUST ERT [id number] Univers 10:50:00 12:40:00 MYA oakley [facility] 2021-10-04 2021-10-04 Emergency Evy RUST [id number] Univers 10:50:00 12:40:00 Mya SINGH [id number] ity of [place] [id number] [facility] [id number] [address] 2021-03-08 2021-03-08 Case AMBERLY Forrest [id number] Univers 00:00:00 00:00:00 Management Melony ALEXANDRA [id number] ity of [place] [id number] [facility] [place] [id number] [address] 2021-02-15 2021-02-15 Emergency X PIYUSH RUST ERT [id number] Univers 21:20:00 21:42:00 NICCI oakley [facility] 2021-02-15 2021-02-15 [facility] [id number] Univers 21:20:00 21:42:00 Nicci S [place] [id number] i ty [place] [id number] [place] [id number] [address] 2021-02-13 2021-02-13 Outpatient R [facility] [id number] Univers 10:00:00 10:00:00 [id number] ity [facility] 2021-02-13 2021-02-13 [facility] [id number] Univers 10:00:00 10:00:00 MAGALI [facility] 2021-02-13 2021-02-13 Urgent Provider, [facility] RUST [id number] Univers 09:26:05 09:46:05 Juan J Bustillos [facility] [id number] ity [facility] [id number] [place] as [place]?Blea [id number] Ca [address] Medical Office Building 2020-10-17 2020-10-17 Outpatient [facility] [id number] Univers 19:45:00 19:45:00 [id number] [facility] 2020-10-17 2020-10-17 [facility] [id number] Univers 19:45:00 19:45:00 [facility] 2019-06-14 2019-06-14 Emergency X MARINA RUST ERT [id number] Univers 05:27:00 06:16:00 EDI [facility] Results Test Description Test Time Test Comments Results Result Comments Source POCT GRP A STREP (MOLECULAR) 2021-02-13 15:09:00 Test Item Value Reference Range Interpretation Comme nts POCT GP A STREP (test code = 58469-3) Negative Negative - Negat romero Lab Interpretation (test code = 13175-1) Normal [facility]
--- NOTE | 2021-11-29 10:45 | EDPHYS ---
Physician Documentation [facility] Name: Anna Pizarro Age: 31 yrs Sex: Female : 1990 Arrival Date: 11/29/2021 Time: 10:19 Bed 16 Private MD: ED Physician Eugene Kilgore HPI: 11/29 10:42 This 31 yrs old Female presents to ER via Ambulatory with complaints of Bump on thigh. kb 10:43 the patient presents with a swollen area of the left inner thigh. Description: "bump on kb thigh". Onset: The symptoms/episode began/occurred 1 month(s) ago. Possible cause(s): unknown. Associated signs and symptoms: The patient has no apparent associated signs or symptoms. Modifying factors: the symptoms are alleviated by nothing, the symptoms are aggravated by pressure, touching. Severity of symptoms: At their worst the symptoms were mild, in the emergency department the symptoms are unchanged. The patient has not experienced similar symptoms in the past. The patient has not recently seen a physician. 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 - Social history:: Smoking status: unknown. ROS: 10:42 Constitutional: Negative for fever, chills, and weight loss. kb 10:42 Skin: Positive for abscess, of the left inner thigh. 10:42 All other systems are negative. Exam: 10:42 Constitutional: This is a well developed, well nourished patient who is awake, alert, kb and in no acute distress. Head/Face: Normocephalic, atraumatic. ENT: Moist Mucous membranes Respiratory: Respirations even and unlabored. No increased work of breathing. Talking in full sentences MS/ Extremity: Pulses equal, no cyanosis. Neurovascular intact. Full, normal range of motion. Neuro: Awake and alert, GCS 15, oriented to person, place, time, and situation. Moves all extremities. Normal gait. Psych: Awake, alert, with orientation to person, place and time. Behavior, mood, and affect are within normal limits. 10:42 Skin: abscess, that is small, of the left inner thigh, with induration. Vital Signs: 10:28 BP 137 / 87; Pulse 93; Resp 18; Temp 97.6; Pulse Ox 98% on R/A; Weight 90.72 kg; Height iw 5 ft. 0 in. (152.40 cm); Pain 7/10; 10:28 Body Mass Index 39.06 (90.72 kg, 152.40 cm) iw MDM: 10:27 Patient medically screened. kb 10:38 Data reviewed: vital signs, nurses notes. Data interpreted: Pulse oximetry: on room air kb is 98 %. Interpretation: normal. Counseling: I had a detailed discussion with the patient and/or guardian regarding: the historical points, exam findings, and any diagnostic results supporting the discharge/admit diagnosis, the need for outpatient follow up, a family practitioner, to return to the emergency department if symptoms worsen or persist or if there are any questions or concerns that arise at home. Administered Medications: No medications were administered Disposition: 20:59 Co-signature as Attending Physician, Eugene Kilgore DO I was immediately available on-site ms3 in the Emergency Department for consultation in the care of the patient. . Disposition Summary: 11/29/21 10:44 Discharge Ordered Location: Home kb Condition: Stable kb Diagnosis - Cutaneous abscess of left lower limb kb Followup: kb - With: Emergency Department - When: As needed - Reason: Worsening of condition Followup: kb - With: Private Physician - When: 2 - 3 days - Reason: Recheck today's complaints, Continuance of care, Re-evaluation by your physician Discharge Instructions: - Discharge Summary Sheet kb - Skin Abscess, [id number]-Hwlb kb Forms: - Medication Reconciliation Form kb - Thank You Letter kb - Antibiotic Education kb - Prescription Opioid Use kb Prescriptions: - Bactrim DS 800-160 mg Oral Tablet - take 1 tablet by ORAL route every 12 hours for 10 days; 20 tablet; Refills: 0, kb Product Selection Permitted Signatures: Dai Peoples, CLAIRE GANNON-Joyce Bacon RN Eugene Porras DO DO ms3 Suzan Knight RN RN em6 Corrections: (The following items were deleted from the chart) 10:52 10:29 Allergies: Flagyl; iw em6
--- NOTE | 2021-11-29 10:45 | ER ---
Nurse's Notes [facility] Name: Anna Pizarro Age: 31 yrs Sex: Female : 1990 Arrival Date: 11/29/2021 Time: 10:19 Bed 16 Private MD: Diagnosis: Cutaneous abscess of left lower limb Presentation: 11/29 10:28 Chief complaint: Patient states: bump on left inner thigh for a month. Coronavirus iw screen: At this time, the client does not indicate any symptoms associated with coronavirus-19. Ebola Screen: Patient negative for fever greater than or equal to 101.5 degrees Fahrenheit, and additional compatible Ebola Virus Disease symptoms Patient denies exposure to infectious person. Patient denies travel to an Ebola-affected area in the 21 days before illness onset. No symptoms or risks identified at this time. Initial Sepsis Screen: Does the patient meet any 2 criteria? No. Patient's initial sepsis screen is negative. Does the patient have a suspected source of infection? No. Patient's initial sepsis screen is negative. Risk Assessment: Do you want to hurt yourself or someone else? Patient reports no desire to harm self or others. Onset of symptoms was October 2021. 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 - Social history:: Smoking status: unknown. Screenin:49 Abuse screen: Denies threats or abuse. Nutritional screening: No deficits noted. em6 Tuberculosis screening: No symptoms or risk factors identified. Fall Risk None identified. No fall in past 12 months (0 pts). No secondary diagnosis (0 pts). No IV (0 pts). Ambulatory Aid- None/Bed Rest/Nurse Assist (0 pts). Gait- Normal/Bed Rest/Wheelchair (0 pts) Mental Status- Oriented to own ability (0 pts). Total Coronel Fall Scale indicates No Risk (0-24 pts). Assessment: 10:38 General: Appears in no apparent distress. comfortable, Behavior is calm, cooperative, em6 appropriate for age. Pain: Complains of pain in medial aspect of left thigh Pain radiates to left leg Pain currently is 5 out of 10 on a pain scale. Quality of pain is described as tender, Pain began 10/29/2021 Is. Neuro: Skinner Agitation-Sedation Scale (RASS): 0 - Alert and Calm Level of Consciousness is awake, alert, obeys commands, Oriented to person, place, time, situation. Respiratory: Airway is patent Respiratory effort is even, unlabored, Respiratory pattern is regular, symmetrical. GI: No signs and/or symptoms were reported involving the gastrointestinal system. : No signs and/or symptoms were reported regarding the genitourinary system. EENT: No signs and/or symptoms were reported regarding the EENT system. Derm: Reports bump in left medial thigh redness noted and pain and tender to the touch. hard/ non movable lump. Musculoskeletal: Circulation, motion, and sensation intact. Vital Signs: 10:28 BP 137 / 87; Pulse 93; Resp 18; Temp 97.6; Pulse Ox 98% on R/A; Weight 90.72 kg; Height iw 5 ft. 0 in. (152.40 cm); Pain 7/10; 10:28 Body Mass Index 39.06 (90.72 kg, 152.40 cm) iw ED Course: 10:19 Patient arrived in ED. mr 10:19 Dai Peoples FNP-C [facility]. kb 10:19 Eugene Kilgore DO is Attending Physician. kb 10:29 Triage completed. iw 10:31 Arm band placed on. iw 10:50 Patient has correct armband on for positive identification. Placed in gown. Bed in low em6 position. Call light in reach. Side rails up X 1. Adult w/ patient. Pulse ox on. NIBP on. 10:52 No provider procedures requiring assistance completed. em6 10:56 Patient did not have IV access during this emergency room visit. em6 Administered Medications: No medications were administered Medication: 10:51 VIS not applicable for this client. em6 Outcome: 10:44 Discharge ordered by . kb 10:55 Discharged to home ambulatory, with family. em6 10:55 Condition: stable 10:55 Discharge instructions given to patient, family, Instructed on discharge instructions, follow up and referral plans. medication usage, Demonstrated understanding of instructions, follow-up care, medications, Prescriptions given X 1. 10:56 Patient left the ED. em6 Signatures: Dai Peoples FNP-C FNP-Marisa Alegria Irene, RN RN iw Suzan Knight RN RN em6 Corrections: (The following items were deleted from the chart) 10:46 10:38 Cardiovascular: em6 em6 10:52 10:29 Allergies: Flagyl; iw em6
[2021-11-29 11:07] VITALS: BP 137/87; TEMP 97.6; O2SAT 98
== END 2021-11-29 10:56 | disposition home or self-care (01) ==
LOC: ER 10:16
DX: L03.116 Cellulitis of left lower limb (principal); Z88.8 Allergy status to other drugs, medicaments and biological substances
CPT/HCPCS: 99283

== ENCOUNTER 2021-12-30 08:57 | Emergency (ER) | payer SELFPAY ==
--- OUTSIDE RECORDS SUMMARY | 2021-12-30 09:01 | XMS REPORT | Continuity of Care Document ---
:1990 Author Organization [facility] t Address [address] [place] [address] Care Team Providers Name Role Phone PCP, [...] of with with 00:00: g of this [place] current current 00 note Medical use use [...] rs AZOLE INGREDI 3-20 ity of 00:00: [address] Social History Social Habit Start Date Stop Date Quantity Comments Source History of Cigarette Smoker Universi ty of tobacco use [facility] Exposure to 2021-09-24 2021-10-04 Not sure [facility] SARS-CoV-2 00:00:00 10:45:00 [facility] (event) Branch Alcohol intake 2021-10-04 2021-10-04 0 /d University of 00:00:00 00:00:00 [facility] Tobacco use and 2015-08-30 2015-08-30 Never used Universit y of exposure 00:00:00 00:00:00 [facility] Sex Ass[birth year] At [birth year] Universit y of 00:00:00 00:00:00 [facility] Smoking Status Start Date Stop Date Source Current every day smoker 2015-08-30 00:00:00 Uni versity of [facility] Medications Ordered Filled Start Stop Current Ordering [...] 10/04/21 at 1200, YO benzonatate 2020-04 Yes [id number] 100mg Take 1 Univers 100 mg 0-28 capsule by ity of capsule 00:00: mouth 3 [place] 00 (three) Medical times Branch daily as needed for Cough. albuterol 2020-04 Yes [id number] 2{puff} Inhale 2 Univers 90 0-28 Puffs ity of mcg/actuati 00:00: every 4 [place] as on inhaler 00 (four) Medical hours as Branch needed for Wheezing or Shortness of Breath. benzonatate 2020-04 Yes [id number] 100mg Take 1 Univers 100 mg 0-28 capsule by ity of capsule 00:00: mouth 3 (three) Medical times Branch daily as needed for Cough. albuterol 2020-04 Yes [id number] 2{puff} Inhale 2 Univers 90 0-28 Puffs ity of mcg/actuati 00:00: every 4 [place] as on inhaler 00 (four) Medical hours as Branch needed for Wheezing or Shortness of Breath. benzonatate 2020-04 Yes [id number] 100mg Take 1 Univers 100 mg 0-28 capsule by ity of capsule 00:00: mouth 3 [place] 00 (three) Medical times Branch daily as needed for Cough. albuterol 2020-04 Yes [id number] 2{puff} Inhale 2 Univers 90 0-28 Puffs ity of mcg/actuati 00:00: every 4 [place] as on inhaler 00 (four) Medical hours as Branch needed for Wheezing or Shortness of Breath. bromphenira 2020-04- No [id number] 5mL Take 5 mL Univers mine-pseudo 002-24 by mouth 4 i ty of ephedrine-D 00:00: 04:59 (four) [place] as M (BROMFED 00 :00 times Medical DM) 2-30-10 daily as Bran ch mg/5 mL needed for syrup Congestion /Allergies or Cough for up to 10 days. bromphenira 2020-04- No [id number] 5mL Take 5 mL Univers mine-pseudo 0-26 11-06 by mouth 4 i ty of ephedrine-D 00:00: 04:59 (four) [place] as M (BROMFED 00 :00 times Medical DM) 2-30-10 daily as Bran ch mg/5 mL needed for syrup Congestion /Allergies or Cough for up to 10 days. butalbital- Yes [id number] 1{capsu Take 1 Univers aspirin-caf 6-29 le} capsule by it y of feine 00:00: mouth [place] 50-325-40 00 every 6 Medical mg per (six) Branch capsule hours as needed for Pain (Migraine MORGAN). amoxicillin Yes [id number] 1{tbl} Take 1 Univers -clavulanat 6-29 tablet by ity of e 00:00: mouth 2 [place] (AUGMENTIN) 00 (two) Medical 875-125 mg times Branch per tablet daily. nicotine Yes [id number] 1{patch Apply 1 Univers mg/24 hr 6-29 } Patch to ity of patch 00:00: area(s) [place] 00 every 24 Medical (twenty-fo Branch ur) hours. Apply 21mg patch daily x 6 weeks; then apply 14mf patch daily x 2 weeks; then apply 7mg patch daily x 2 weeks. Stop smoking on initiation of therapy nicotine Yes [id number] 1{patch Apply 1 Univers mg/24 hr 6-29 } Patch to ity of patch 00:00: area(s) [place] 00 daily. Medical Apply 21mg Branch patch daily x 6 weeks; then apply 14mf patch daily x 2 weeks; then apply 7mg patch daily x 2 weeks. Stop smoking on initiation of therapy nicotine 7 Yes [id number] 1{patch Apply 1 Univers mg/24 hr 6-29 } Patch to ity of patch 00:00: area(s) [place] 00 every 24 Medical (twenty-fo Branch ur) hours. Apply 21mg patch daily x 6 weeks; then apply 14mf patch daily x 2 weeks; then apply 7mg patch daily x 2 weeks. Stop smoking on initiation of therapy fluticasone Yes [id number] 1{spray Use 1 Univers propionate 6-29 } [place] in ity o f 50 00:00: each [place] mcg/actuati 00 nostril Medic al on nasal daily. Branch spray butalbital- Yes [id number] 1{capsu Take 1 Univers aspirin-caf 6-29 le} capsule by it y of feine 00:00: mouth [place] 50-325-40 00 every 6 Medical mg per (six) Branch capsule hours as needed for Pain (Migraine MORGAN). amoxicillin Yes [id number] 1{tbl} Take 1 Univers -clavulanat 6-29 tablet by ity of e 00:00: mouth 2 [place] (AUGMENTIN) 00 (two) Medical 875-125 mg times Branch per tablet daily. nicotine Yes [id number] 1{patch Apply 1 Univers mg/24 hr 6-29 } Patch to ity of patch 00:00: area(s) [place] 00 every 24 Medical (twenty-fo Branch ur) hours. Apply 21mg patch daily x 6 weeks; then apply 14mf patch daily x 2 weeks; then apply 7mg patch daily x 2 weeks. Stop smoking on initiation of therapy nicotine Yes [id number] 1{patch Apply 1 Univers mg/24 hr 6-29 } Patch to ity of patch 00:00: area(s) [place] 00 daily. Medical Apply 21mg Branch patch daily x 6 weeks; then apply 14mf patch daily x 2 weeks; then apply 7mg patch daily x 2 weeks. Stop smoking on initiation of therapy nicotine 7 Yes [id number] 1{patch Apply 1 Univers mg/24 hr 6-29 } Patch to ity of patch 00:00: area(s) [place] 00 every 24 Medical (twenty-fo Branch ur) hours. Apply 21mg patch daily x 6 weeks; then apply 14mf patch daily x 2 weeks; then apply 7mg patch daily x 2 weeks. Stop smoking on initiation of therapy fluticasone Yes [id number] 1{spray Use 1 Univers propionate 6-29 } [place] in ity o f 50 00:00: each [place] mcg/actuati 00 nostril Medic al on nasal daily. Branch spray butalbital- Yes [id number] 1{capsu Take 1 Univers aspirin-caf 6-29 le} capsule by it y of feine 00:00: mouth [place] 50-325-40 00 every 6 Medical mg per (six) Branch capsule hours as needed for Pain (Migraine MORGAN). amoxicillin Yes [id number] 1{tbl} Take 1 Univers -clavulanat 6-29 tablet by ity of e 00:00: mouth 2 [place] (AUGMENTIN) 00 (two) Medical 875-125 mg times Branch per tablet daily. nicotine Yes [id number] 1{patch Apply 1 Univers mg/24 hr 6-29 } Patch to ity of patch 00:00: area(s) [place] 00 every 24 Medical (twenty-fo Branch ur) hours. Apply 21mg patch daily x 6 weeks; then apply 14mf patch daily x 2 weeks; then apply 7mg patch daily x 2 weeks. Stop smoking on initiation of therapy nicotine Yes [id number] 1{patch Apply 1 Univers mg/24 hr 6-29 } Patch to ity of patch 00:00: area(s) [place] 00 daily. Medical Apply 21mg Branch patch daily x 6 weeks; then apply 14mf patch daily x 2 weeks; then apply 7mg patch daily x 2 weeks. Stop smoking on initiation of therapy nicotine 7 Yes [id number] 1{patch Apply 1 Univers mg/24 hr 6-29 } Patch to ity of patch 00:00: area(s) [place] 00 every 24 Medical (twenty-fo Branch ur) hours. Apply 21mg patch daily x 6 weeks; then apply 14mf patch daily x 2 weeks; then apply 7mg patch daily x 2 weeks. Stop smoking on initiation of therapy fluticasone Yes [id number] 1{spray Use 1 Univers propionate 6-29 } [place] in ity o f 50 00:00: each [place] mcg/actuati 00 nostril Medic al on nasal daily. Branch spray butalbital- Yes [id number] 1{capsu Take 1 Univers aspirin-caf 6-29 le} capsule by it y of feine 00:00: mouth [place] 50-325-40 00 every 6 Medical mg per (six) Branch capsule hours as needed for Pain (Migraine MORGAN). amoxicillin Yes [id number] 1{tbl} Take 1 Univers -clavulanat 6-29 tablet by ity of e 00:00: mouth 2 [place] (AUGMENTIN) 00 (two) Medical 875-125 mg times Branch per tablet daily. nicotine 14 Yes [id number] 1{patch Apply 1 Univers mg/24 hr 6-29 } Patch to ity of patch 00:00: area(s) [place] 00 every 24 Medical (twenty-fo Branch ur) hours. Apply 21mg patch daily x 6 weeks; then apply 14mf patch daily x 2 weeks; then apply 7mg patch daily x 2 weeks. Stop smoking on initiation of therapy nicotine Yes [id number] 1{patch Apply 1 Univers mg/24 hr 6-29 } Patch to ity of patch 00:00: area(s) [place] 00 daily. Medical Apply 21mg Branch patch daily x 6 weeks; then apply 14mf patch daily x 2 weeks; then apply 7mg patch daily x 2 weeks. Stop smoking on initiation of therapy nicotine 7 Yes [id number] 1{patch Apply 1 Univers mg/24 hr 6-29 } Patch to ity of patch 00:00: area(s) [place] 00 every 24 Medical (twenty-fo Branch ur) hours. Apply 21mg patch daily x 6 weeks; then apply 14mf patch daily x 2 weeks; then apply 7mg patch daily x 2 weeks. Stop smoking on initiation of therapy fluticasone Yes [id number] 1{spray Use 1 Univers propionate 6-29 } [place] in ity o f 50 00:00: each [place] mcg/actuati 00 nostril Medic al on nasal daily. Branch spray Vital Signs Vital Name Observation Time Observation Value Comments Source Systolic blood 2021-10-04 17:39:00 120 mm[Hg] Univer sity [facility] Diastolic blood 2021-10-04 17:39:00 80 mm[Hg] [facility] Heart rate 2021-10-04 17:39:00 73 /min [facility] Respiratory rate 2021-10-04 17:39:00 18 /min [facility] Oxygen saturation in 2021-10-04 17:39:00 97 /min [facility] Arterial blood by [facility] Pulse oximetry Branch Body temperature 2021-10-04 15:46:00 37.5 Qi [facility] [place] [facility] Body height 2021-10-04 15:46:00 152.4 cm [facility] [place] [facility] Body weight 2021-10-04 15:46:00 81.647 kg [facility] [place] [facility] BMI 2021-10-04 15:46:00 35.15 kg/m2 [facility]i ty [facility] [place] [facility] Otho Body height 2021-02-16 02:18:00 152.4 cm [facility] [place] [facility] Body weight 2021-02-16 02:18:00 90.266 kg [facility] [place] [facility] BMI 2021-02-16 02:18:00 38.86 kg/m2 Universi ty of [facility] Oxygen saturation in 2021-02-16 02:18:00 99 /min University Arterial blood by [facility] Pulse oximetry Branch Systolic blood 2021-02-16 02:18:00 131 mm[Hg] Univer sity of pressure [facility] Diastolic blood 2021-02-16 02:18:00 81 mm[Hg] Unive rsity of pressure [facility] Heart rate 2021-02-16 02:18:00 99 /min Universi ty of [place] [facility] Otho Body temperature 2021-02-16 02:18:00 37.22 Iq Univ ersity of [facility] Branch Respiratory rate 2021-02-16 02:18:00 18 /min Univ [facility] [place] [facility] Systolic blood 2021-02-13 14:34:00 125 mm[Hg] Univer sity of pressure [place] [facility] Diastolic blood 2021-02-13 14:34:00 74 mm[Hg] Unive rsity of pressure [facility] Heart rate 2021-02-13 14:34:00 103 /min [facility] [place] [facility] Body temperature 2021-02-13 14:34:00 37.56 Qi Univ ersity of [facility] Branch Respiratory rate 2021-02-13 14:34:00 18 /min Univ ersity of [facility] Branch Body height 2021-02-13 14:34:00 152.4 cm Universi ty of [place] [facility] Otho Body weight 2021-02-13 14:34:00 90.674 kg [facility] [place] [facility] BMI 2021-02-13 14:34:00 39.04 kg/m2 Universi ty of [facility] Branch Oxygen saturation in 2021-02-13 14:34:00 98 /min University of Arterial blood by [facility] Pulse oximetry Branch Procedures Procedure Date / Time Performed Performing Clinician Sour e NOTICE OF PRIVACY 2021-10-04 15:41:13 Doctor Unassigned, No [facility] [place] [facility] Name Medical Branch CONSENT/REFUSAL FOR 2021-10-04 15:40:49 Doctor Unassigned, No [facility] [place] DIAGNOSIS AND Name Medical Branch TREATMENT CONSENT/REFUSAL FOR 2021-02-16 02:11:53 Doctor Unassigned, No [facility] [place] DIAGNOSIS AND Name Medical Branch TREATMENT POCT GRP A STREP 2021-02-13 15:09:00 Koko Killian [facility] (MOLECULAR) Medical Branch Encounters Start End Encounter Admission Attending Care Care Encounter Source Date/Time Date/Time Type Type Clinicians Facility Department ID 2021-02-18 Emergency [facility] [id number] Univers 09:18:43 ity of [facility] 2021-10-04 2021-10-04 Emergency X EVY [facility] ERT [id number] Univers 10:50:00 12:40:00 MYA oakley [facility] 2021-10-04 2021-10-04 Emergency Evy [facility] [id number] Univers 10:50:00 12:40:00 Mya SINGH [id number] ity of [place] [id number] [id number] [address] 2021-03-08 2021-03-08 Case AMBERLY Forrest [id number] Univers 00:00:00 00:00:00 Management Melony ALEXANDRA [id number] ity of [place] [id number] [facility] [id number] [address] 2021-02-15 2021-02-15 Emergency X PIYUSH [facility] ERT [id number] Univers 21:20:00 21:42:00 NICCI oakley [facility] 2021-02-15 2021-02-15 [facility] [id number] Univers 21:20:00 21:42:00 Incci S [place] [id number] i ty [place] [id number] [place] [id number] [address] 2021-02-13 2021-02-13 Outpatient R [facility] [id number] Univers 10:00:00 10:00:00 [id number] ity [facility] 2021-02-13 2021-02-13 [id number] Univers 10:00:00 10:00:00 MAGALI [facility] 2021-02-13 2021-02-13 Urgent Provider, [facility] [id number] Univers 09:26:05 09:46:05 Juan J Bustillos [facility] [id number] ity [facility] [id number] [place] Chapo?Blea [id number] Sc [address] Medical Office Building 2020-10-17 2020-10-17 Outpatient [facility] [id number] Univers 19:45:00 19:45:00 [id number] [facility] 2020-10-17 2020-10-17 [facility] [id number] Univers 19:45:00 19:45:00 [facility] 2019-06-14 2019-06-14 Emergency X MARINA [facility] ERT [id number] Univers 05:27:00 06:16:00 EDI [facility] Results Test Description Test Time Test Comments Results Result Comments Source POCT GRP A STREP (MOLECULAR) 2021-02-13 15:09:00 Test Item Value Reference Range Interpretation Comme nts POCT GP A STREP (test code = 05182-3) Negative Negative - Negat romero Lab Interpretation (test code = 34832-2) Normal [facility]
--- NOTE | 2021-12-30 09:30 | ER ---
Nurse's Notes [facility] Name: Anna Pizarro Age: 31 yrs Sex: Female : 1990 Arrival Date: 12/30/2021 Time: 09:12 Bed 10 Private MD: Diagnosis: Cutaneous abscess of groin Presentation: 12/30 09:14 Chief complaint: Patient states: Abscess to left inner thigh x 1 month, treated with jl7 Bactrim and it got smaller but is still there and hurts worse than before. Coronavirus screen: At this time, the client does not indicate any symptoms associated with coronavirus-19. Ebola Screen: No symptoms or risks identified at this time. Initial Sepsis Screen: Does the patient meet any 2 criteria? No. Patient's initial sepsis screen is negative. Does the patient have a suspected source of infection? No. Patient's initial sepsis screen is negative. Risk Assessment: Do you want to hurt yourself or someone else? Patient reports no desire to harm self or others. Onset of symptoms was November 2021. Care prior to arrival: None. 09:14 Method Of Arrival: Ambulatory 7 09:14 Acuity: EDWIN 3 jl7 Triage Assessment: 09:16 General: Appears in no apparent distress. uncomfortable, Behavior is calm, cooperative, jl7 appropriate for age. Pain: Complains of pain in left inner thigh Pain currently is 8 out of 10 on a pain scale. 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 - Social history:: Smoking status: Patient reports the use of cigarette tobacco products, smokes one pack cigarettes per day. Screenin:37 Abuse screen: Denies threats or abuse. Denies injuries from another. Nutritional jl7 screening: No deficits noted. Tuberculosis screening: No symptoms or risk factors identified. Fall Risk None identified. Assessment: 09:37 General: Appears in no apparent distress. comfortable, Behavior is calm, cooperative. ss Pain: Complains of pain in left inner thigh Pain currently is 8 out of 10 on a pain scale. Quality of pain is described as tender, Pain began x 1 month Is continuous. Neuro: Level of Consciousness is awake, alert, obeys commands, Oriented to person, place, time, situation. Respiratory: Airway is patent Respiratory effort is even, unlabored. Derm: Skin is pink, warm \T\ dry. Abscess located on left inner thigh. Musculoskeletal: Circulation, motion, and sensation intact. Range of motion: intact in all extremities, Swelling absent. Vital Signs: 09:14 BP 135 / 75; Pulse 86; Resp 15; Temp 98.4; Pulse Ox 100% ; Weight 90.72 kg; Height 5 jl7 ft. 0 in. (152.40 cm); Pain 8/10; 09:14 Body Mass Index 39.06 (90.72 kg, 152.40 cm) jl7 ED Course: 09:12 Patient arrived in ED. mr 09:16 Triage completed. jl7 09:16 Arm band placed on right wrist. jl7 09:24 Buster Barr is PHCP. jl9 09:24 Hernando Perry MD is Attending Physician. jl9 09:37 Rachel Anne, RN is Primary Nurse. ss 09:37 Patient has correct armband on for positive identification. Placed in gown. Bed in low jl7 position. Call light in reach. 09:37 No provider procedures requiring assistance completed. Patient did not have IV access jl7 during this emergency room visit. Administered Medications: No medications were administered Medication: 09:37 VIS not applicable for this client. jl7 Outcome: 09:30 Discharge ordered by . jl9 09:37 Discharged to home ambulatory, with family. ss 09:37 Condition: good 09:37 Discharge instructions given to patient, family, Instructed on discharge instructions, follow up and referral plans. medication usage, wound care, Demonstrated understanding of instructions, follow-up care, medications, Prescriptions given X 1. 09:40 Patient left the ED. ss Signatures: MarkMarisa mr Rachel Anne, RN RN ss Tenisha Rodriguez RN RN Buster Molina jl9 Corrections: (The following items were deleted from the chart) 09:17 09:16 Home Meds: None; jl7 jl7
--- NOTE | 2021-12-30 09:30 | EDPHYS ---
Physician Documentation [facility] Name: Anna Pizarro Age: 31 yrs Sex: Female : 1990 Arrival Date: 12/30/2021 Time: 09:12 Bed 10 Private MD: ED Physician Hernando Perry HPI: 12/30 09:26 This 31 yrs old Female presents to ER via Ambulatory with complaints of jl9 redness/abscess to left inner thigh. Patient seen here 1 month ago for similar issue and given bactrim. . 09:26 the patient presents with a swollen area of the left inner thigh. Description: The jl9 affected area is very small, approximately 1 cm(s), erythematous. Onset: The symptoms/episode began/occurred 1 month(s) ago. Possible cause(s): unknown. Associated signs and symptoms: The patient has no apparent associated signs or symptoms. DRAUGHTSMAN: 09:16 LMP 12/24/2021 jl7 Historical: - Allergies: 09:16 Flagyl; jl7 - Home Meds: 09:16 gjrhjqtlzh-jnqsovg-xsrxtine oral [Active]; jl7 - PMHx: 09:16 Migraines; PCOS; jl7 - PSHx: 09:16 None; jl7 - Immunization history:: Client reports having NOT received the Covid vaccine. - Social history:: Smoking status: Patient reports the use of cigarette tobacco products, smokes one pack cigarettes per day. ROS: 09:28 Constitutional: Negative for fever, chills, and weight loss, Eyes: Negative for injury, jl9 pain, redness, and discharge, ENT: Negative for injury, pain, and discharge, Neck: Negative for injury, pain, and swelling, Cardiovascular: Negative for chest pain, palpitations, and edema, Respiratory: Negative for shortness of breath, cough, wheezing, and pleuritic chest pain, Abdomen/GI: Negative for abdominal pain, nausea, vomiting, diarrhea, and constipation, Back: Negative for injury and pain, : Negative for injury, bleeding, discharge, and swelling, MS/Extremity: Negative for injury and deformity. 09:28 Neuro: Negative for headache, weakness, numbness, tingling, and seizure, Psych: Negative for depression, anxiety, suicide ideation, homicidal ideation, and hallucinations, Allergy/Immunology: Negative for hives, rash, and allergies, Endocrine: Negative for neck swelling, polydipsia, polyuria, polyphagia, and marked weight changes, Hematologic/Lymphatic: Negative for swollen nodes, abnormal bleeding, and unusual bruising. 09:28 Skin: Positive for 1x1 non pointing minimal reddened area to left inner thigh. . Exam: 09:28 Constitutional: This is a well developed, well nourished patient who is awake, alert, jl9 and in no acute distress. Head/Face: Normocephalic, atraumatic. Eyes: Pupils equal round and reactive to light, extra-ocular motions intact. Lids and lashes normal. Conjunctiva and sclera are non-icteric and not injected. Cornea within normal limits. Periorbital areas with no swelling, redness, or edema. ENT: Mucous membranes moist. Neck: Trachea midline, no thyromegaly or masses palpated, and no cervical lymphadenopathy. Supple, full range of motion without nuchal rigidity, or vertebral point tenderness. No Meningismus. Chest/axilla: Normal chest wall appearance and motion. Nontender with no deformity. No lesions are appreciated. Cardiovascular: Regular rate and rhythm with a normal S1 and S2. No gallops, murmurs, or rubs. Normal PMI, no JVD. No pulse deficits. Respiratory: Lungs have equal breath sounds bilaterally, clear to auscultation and percussion. No rales, rhonchi or wheezes noted. No increased work of breathing, no retractions or nasal flaring. Abdomen/GI: Soft, non-tender, with normal bowel sounds. No distension or tympany. No guarding or rebound. No evidence of tenderness throughout. Back: No spinal tenderness. No costovertebral tenderness. Full range of motion. 09:28 MS/ Extremity: Pulses equal, no cyanosis. Neurovascular intact. Full, normal range of motion. Neuro: Awake and alert, GCS 15, oriented to person, place, time, and situation. Cranial nerves II-XII grossly intact. Motor strength 5/5 in all extremities. Sensory grossly intact. Cerebellar exam normal. Normal gait. Psych: Awake, alert, with orientation to person, place and time. Behavior, mood, and affect are within normal limits. 09:28 Skin: abscess, that is small, approximately 1 cm(s), Tiny small reddened area, non-pointing. . Vital Signs: 09:14 BP 135 / 75; Pulse 86; Resp 15; Temp 98.4; Pulse Ox 100% ; Weight 90.72 kg; Height 5 jl7 ft. 0 in. (152.40 cm); Pain 8/10; 09:14 Body Mass Index 39.06 (90.72 kg, 152.40 cm) jl7 MDM: 09:24 Patient medically screened. jl9 09:29 Data reviewed: vital signs, nurses notes. Counseling: I had a detailed discussion with jl9 the patient and/or guardian regarding: the historical points, exam findings, and any diagnostic results supporting the discharge/admit diagnosis, the need for outpatient follow up, to return to the emergency department if symptoms worsen or persist or if there are any questions or concerns that arise at home. Administered Medications: No medications were administered Disposition Summary: 12/30/21 09:30 Discharge Ordered Location: Home jl9 Condition: Stable jl9 Diagnosis - Cutaneous abscess of groin jl9 Followup: jl9 - With: Private Physician - When: 1 - 2 days - Reason: Recheck today's complaints, Continuance of care, Re-evaluation by your physician Discharge Instructions: - Discharge Summary Sheet jl9 - Skin Abscess, [id number] jl9 Forms: - Medication Reconciliation Form jl9 - Thank You Letter jl9 - Antibiotic Education jl9 - Prescription Opioid Use jl9 Prescriptions: - Clindamycin HCl 300 mg Oral Capsule - take 1 capsule by ORAL route every 6 hours for 10 days; 40 capsule; Refills: 0, jl9 Product Selection Permitted Signatures: Tenisha Rodriguez RN RN jl7 Buster Barr jl9 Corrections: (The following items were deleted from the chart) 09:17 09:16 Home Meds: None; jl7 jl7
[2021-12-30 10:20] VITALS: BP 135/75; TEMP 98.4; O2SAT 100
== END 2021-12-30 09:40 | disposition home or self-care (01) ==
LOC: ER 08:57
DX: L02.214 Cutaneous abscess of groin (principal); F17.210 Nicotine dependence, cigarettes, uncomplicated; Z88.8 Allergy status to other drugs, medicaments and biological substances
CPT/HCPCS: 99282

== ENCOUNTER 2022-07-04 10:04 | Emergency (ER) | payer SELFPAY ==
--- OUTSIDE RECORDS SUMMARY | 2022-07-04 10:07 | XMS REPORT | Continuity of Care Document ---
:1990 Author Organization [facility] t Address [address] [place] [address] [address] [place] [address] Care Team Providers Name Role Phone PCP, PATIENT DOES NOT HAVE A Primary Care Physician Unavaila NICCI Sosa Attending Clinician Unavailable Nicci Desir Attending Clinician MYA RATLIFF Attending Clinician Unavailable Mya aRtliff DO Attending Clinician Melony Forrest LMSW Attending Clinician Unavailable MAGALI BUSTILLOS Attending Clinician Unavailable Provider, [place] [...] years old (10 pack-year as of 11/05) Nicotine Nicotine Disease Active Overview: Un marichuy dependence dependence 11-06 Formattin ity of with with 00:00: g of this [place] current current 00 note Medical use use might be Branch different from the original. 1 pack per day since 16 years old (10 pack-year as of 11/05) Chronic Chronic Disease Active Overview: Univ ers fatigue fatigue 11-06 Formattin ity o f 00:00: g of this [place] 00 note Medical might be Branch different from the original. Will be evaluated by GI in 11/2016 for associate d bowel issues and then hematolog y Generalize Generalize Disease Active U nivers d anxiety d anxiety 5-15 ity of disorder disorder 00:00: [place] [id number] Medical Branch Abdominal Abdominal Disease Active Uni vers pain, pain, 5-01 ity of chronic, chronic, 00:00: [place] left lower left lower 00 Me dical quadrant quadrant Branch Leukocytos Leukocytos Disease Active U nivers is is 5- ity of 00:00: [place] 00 Medical Branch Obesity Obesity Disease Active Univers (BMI (BMI 3-09 ity of 30-39.9) 30-39.9) 00:00: [place] 00 Medical Branch Allergies, Adverse Reactions, Alerts Allergy Allergy Status Severity Reaction(s) Onset Inactive Treating Comm ents Source Name Type Date Date Clinician Metronid Propensi Active Dizziness Uni vers azole ty to 3-20 ity of adverse 00:00: [place] reaction 00 Medical s Branch METRONID DRUG Active Dizziness Unive rs AZOLE INGREDI 3-20 ity of 00:00: [address] Social History Social Habit Start Date Stop Date Quantity Comments Source History of Cigarette Smoker Universi ty of tobacco use [facility] Exposure to 2022-06-05 2022-06-15 Not sure [facility] SARS-CoV-2 00:00:00 16:45:00 [facility] (event) [place] Alcohol intake 2022-05-27 2022-05-27 0 /d University of 00:00:00 00:00:00 [facility] Tobacco use and 2016-08-19 2016-08-19 Smokeless tobacco Un iversity of exposure 00:00:00 00:00:00 non-user [facility] Sex Ass[birth year] At [birth year] Universit y of 00:00:00 00:00:00 [facility] Smoking Status Start Date Stop Date Source Smokes tobacco daily 2016-08-19 00:00:00 Univers ity of [facility] Medications Ordered Filled Start Stop Current Ordering Indication Dosage Frequency Signature Comments Components Source Medication Medication Date Date Medication? Clinician (SIG) Name Name clindamycin 2022- Yes [id number] 450mg Take 3 Univers 150 mg 05-27 [id number] capsules ity of capsule 00:00: 05:59 by mouth [place] 00 :00 in the Medical morning Branch and 3 capsules at noon and 3 capsules in the evening. Do all this for 10 days. HYDROcodone 2021- No 1{tbl} 1 tablet, Univers -acetaminop 10-04 Oral, ity of hen (NORCO 17:00: 15:52 ONCE, 1 [place] 5) 5-325 mg 00 :00 dose, On [facility] tablet Fri Branch tablet 10/04/21 at 1200, YO benzonatate 2020-04 Yes [id number] 100mg Take 1 Univers 100 mg 0-28 capsule by ity of capsule 00:00: mouth [place] (three) Medical times Branch daily as needed for Cough. albuterol 2020-04 Yes [id number] 2{puff} Inhale 2 Univers 90 0-28 Puffs ity of mcg/actuati 00:00: every 4 [place] as on inhaler 00 (four) Medical hours as Branch needed for Wheezing or Shortness of Breath. benzonatate 2020-04 Yes [id number] 100mg Take 1 Univers 100 mg 0-28 capsule by ity of capsule 00:00: mouth 3 [place] (three) Medical times Branch daily as needed for Cough. albuterol 2020-04 Yes [id number] 2{puff} Inhale 2 Univers 90 0-28 Puffs ity of mcg/actuati 00:00: every 4 [place] as on inhaler 00 (four) Medical hours as Branch needed for Wheezing or Shortness of Breath. benzonatate 2020-04 Yes [id number] 100mg Take 1 Univers 100 mg 0-28 capsule by ity of capsule 00:00: mouth 3 [place] (three) Medical times Branch daily as needed for Cough. albuterol 2020-04 Yes [id number] 2{puff} Inhale 2 Univers 90 0-28 Puffs ity of mcg/actuati 00:00: every 4 [place] on inhaler 00 (four) Medical hours as Branch needed for Wheezing or Shortness of Breath. benzonatate 2020-04 Yes [id number] 100mg Take 1 Univers 100 mg 0-28 capsule by ity of capsule 00:00: mouth 3 [place] 00 (three) Medical times Branch daily as needed for Cough. albuterol 2020-04 Yes [id number] 2{puff} Inhale 2 Univers 90 0-28 Puffs ity of mcg/actuati 00:00: every 4 [place] on inhaler 00 (four) Medical hours as Branch needed for Wheezing or Shortness of Breath. benzonatate 2020-04 Yes [id number] 100mg Take 1 Univers 100 mg 0-28 capsule by ity of capsule 00:00: mouth 3 [place] 00 (three) Medical times Branch daily as needed for Cough. albuterol 2020-04 Yes [id number] 2{puff} Inhale 2 Univers 90 0-28 Puffs ity of mcg/actuati 00:00: every 4 [place] on inhaler 00 (four) Medical hours as Branch needed for Wheezing or Shortness of Breath. bromphenira 2020-04- No [id number] 5mL Take 5 mL Univers mine-pseudo 0-26 - by mouth 4 i ty of ephedrine-D 00:00: 04:59 (four) [place] M (BROMFED 00 :00 times Medical DM) 2-30-10 daily as Bran ch mg/5 mL needed for syrup Congestion /Allergies or Cough for up to 10 days. bromphenira 2020-04- No [id number] 5mL Take 5 mL Univers mine-pseudo 0-26 11-06 by mouth 4 i ty of ephedrine-D 00:00: 04:59 (four) [place] M (BROMFED 00 :00 times Medical DM) 2-30-10 daily as Bran ch mg/5 mL needed for syrup Congestion /Allergies or Cough for up to 10 days. butalbital- Yes [id number] 1{capsu Take 1 Univers aspirin-caf 6-29 le} capsule by it y of feine 00:00: mouth [place] 50-325-40 00 every 6 Medical mg per (six) Branch capsule hours as needed for Pain (Migraine MORGAN). amoxicillin Yes [id number] 1{tbl} Take 1 Univers -clavulanat 6-29 tablet by ity of e 00:00: mouth 2 [place] (AUGMENTIN) 00 (two) Medical 875-125 mg times Branch per tablet daily. nicotine 14 Yes [id number] 1{patch Apply 1 Univers mg/24 hr 6-29 } Patch to ity of patch 00:00: area(s) [place] 00 every 24 Medical (twenty-fo Branch ur) hours. Apply 21mg patch daily x 6 weeks; then apply 14mf patch daily x 2 weeks; then apply 7mg patch daily x 2 weeks. Stop smoking on initiation of therapy nicotine 21 Yes [id number] 1{patch Apply 1 Univers mg/24 hr 6-29 } Patch to ity of patch 00:00: area(s) [place] 00 daily. Medical Apply 21mg Branch patch daily x 6 weeks; then apply 14mf patch daily x 2 weeks; then apply 7mg patch daily x 2 weeks. Stop smoking on initiation of therapy nicotine 7 Yes [id number] 1{patch Apply 1 Univers mg/24 hr 6-29 } Patch to ity of patch 00:00: area(s) [place] 00 every 24 Medical (twenty-fo Branch ur) hours. Apply 21mg patch daily x 6 weeks; then apply 14mf patch daily x 2 weeks; then apply 7mg patch daily x 2 weeks. Stop smoking on initiation of therapy fluticasone Yes [id number] 1{spray Use 1 Univers propionate 6-29 } [place] in ity o f 50 00:00: each [place] mcg/actuati 00 nostril Medic al on nasal daily. Branch spray butalbital- Yes [id number] 1{capsu Take 1 Univers aspirin-caf 6-29 le} capsule by it y of feine 00:00: mouth [place] 50-325-40 00 every 6 Medical mg per (six) Branch capsule hours as needed for Pain (Migraine MORGAN). amoxicillin Yes [id number] 1{tbl} Take 1 Univers -clavulanat 6-29 tablet by ity of e 00:00: mouth 2 [place] (AUGMENTIN) 00 (two) Medical 875-125 mg times Branch per tablet daily. nicotine Yes [id number] 1{patch Apply 1 Univers mg/24 hr 6-29 } Patch to ity of patch 00:00: area(s) [place] 00 every 24 Medical (twenty-fo Branch ur) hours. Apply 21mg patch daily x 6 weeks; then apply 14mf patch daily x 2 weeks; then apply 7mg patch daily x 2 weeks. Stop smoking on initiation of therapy nicotine Yes [id number] 1{patch Apply 1 Univers mg/24 hr 6-29 } Patch to ity of patch 00:00: area(s) [place] 00 daily. Medical Apply 21mg Branch patch daily x 6 weeks; then apply 14mf patch daily x 2 weeks; then apply 7mg patch daily x 2 weeks. Stop smoking on initiation of therapy nicotine Yes [id number] 1{patch Apply 1 Univers mg/24 hr 6-29 } Patch to ity of patch 00:00: area() [place] 00 every 24 Medical (twenty-fo Branch ur) hours. Apply 21mg patch daily x 6 weeks; then apply 14mf patch daily x 2 weeks; then apply 7mg patch daily x 2 weeks. Stop smoking on initiation of therapy fluticasone Yes [id number] 1{spray Use 1 Univers propionate 6-29 } [place] in ity o f 50 00:00: each [place] mcg/actuati 00 nostril Medic al on nasal daily. Branch spray butalbital- Yes [id number] 1{capsu Take 1 Univers aspirin-caf 6- le} capsule by it y of feine 00:00: mouth [place] 50-325-40 00 every 6 Medical mg per (six) Branch capsule hours as needed for Pain (Migraine MORGAN). nicotine Yes [id number] 1{patch Apply 1 Univers mg/24 hr 6-29 } Patch to ity of patch 00:00: area(s) [place] 00 every 24 Medical (twenty-fo Branch ur) hours. Apply 21mg patch daily x 6 weeks; then apply 14mf patch daily x 2 weeks; then apply 7mg patch daily x 2 weeks. Stop smoking on initiation of therapy nicotine Yes [id number] 1{patch Apply 1 Univers mg/24 hr 6-29 } Patch to ity of patch 00:00: area(s) [place] 00 daily. Medical Apply 21mg Branch patch daily x 6 weeks; then apply 14mf patch daily x 2 weeks; then apply 7mg patch daily x 2 weeks. Stop smoking on initiation of therapy nicotine 7 Yes [id number] 1{patch Apply 1 Univers mg/24 hr 6-29 } Patch to ity of patch 00:00: area(s) [place] 00 every 24 Medical (twenty-fo Branch ur) hours. Apply 21mg patch daily x 6 weeks; then apply 14mf patch daily x 2 weeks; then apply 7mg patch daily x 2 weeks. Stop smoking on initiation of therapy fluticasone Yes [id number] 1{spray Use 1 Univers propionate 6-29 } [place] in ity o f 50 00:00: each [place] mcg/actuati 00 nostril Medic al on nasal daily. Branch spray butalbital- Yes [id number] 1{capsu Take 1 Univers aspirin-caf 6-29 le} capsule by it y of feine 00:00: mouth [place] 50-325-40 00 every 6 Medical mg per (six) Branch capsule hours as needed for Pain (Migraine MORGAN). nicotine 14 Yes [id number] 1{patch Apply 1 Univers mg/24 hr 6-29 } Patch to ity of patch 00:00: area(s) [place] 00 every 24 Medical (twenty-fo Branch ur) hours. Apply 21mg patch daily x 6 weeks; then apply 14mf patch daily x 2 weeks; then apply 7mg patch daily x 2 weeks. Stop smoking on initiation of therapy nicotine 21 Yes [id number] 1{patch Apply 1 Univers mg/24 hr 6-29 } Patch to ity of patch 00:00: area(s) [place] 00 daily. Medical Apply 21mg Branch patch daily x 6 weeks; then apply 14mf patch daily x 2 weeks; then apply 7mg patch daily x 2 weeks. Stop smoking on initiation of therapy nicotine 7 Yes [id number] 1{patch Apply 1 Univers mg/24 hr 6-29 } Patch to ity of patch 00:00: area(s) [place] 00 every 24 Medical (twenty-fo Branch ur) hours. Apply 21mg patch daily x 6 weeks; then apply 14mf patch daily x 2 weeks; then apply 7mg patch daily x 2 weeks. Stop smoking on initiation of therapy fluticasone Yes [id number] 1{spray Use 1 Univers propionate 6-29 } [place] in ity o f 50 00:00: each [place] mcg/actuati 00 nostril Medic al on nasal daily. Branch spray butalbital- Yes [id number] 1{capsu Take 1 Univers aspirin-caf 6-29 le} capsule by it y of feine 00:00: mouth [place] 50-325-40 00 every 6 Medical mg per (six) Branch capsule hours as needed for Pain (Migraine MORGAN). amoxicillin Yes [id number] 1{tbl} Take 1 Univers -clavulanat 6-29 tablet by ity of e 00:00: mouth 2 [place] (AUGMENTIN) 00 (two) Medical 875-125 mg times Branch per tablet daily. nicotine Yes [id number] 1{patch Apply 1 Univers mg/24 hr 6-29 } Patch to ity of patch 00:00: area(s) [place] 00 every 24 Medical (twenty-fo Branch ur) hours. Apply 21mg patch daily x 6 weeks; then apply 14mf patch daily x 2 weeks; then apply 7mg patch daily x 2 weeks. Stop smoking on initiation of therapy nicotine Yes [id number] 1{patch Apply 1 Univers mg/24 hr 6-29 } Patch to ity of patch 00:00: area(s) [place] 00 daily. Medical Apply 21mg Branch patch daily x 6 weeks; then apply 14mf patch daily x 2 weeks; then apply 7mg patch daily x 2 weeks. Stop smoking on initiation of therapy nicotine 7 Yes [id number] 1{patch Apply 1 Univers mg/24 hr 6-29 } Patch to ity of patch 00:00: area(s) [place] 00 every 24 Medical (twenty-fo Branch ur) hours. Apply 21mg patch daily x 6 weeks; then apply 14mf patch daily x 2 weeks; then apply 7mg patch daily x 2 weeks. Stop smoking on initiation of therapy fluticasone Yes [id number] 1{spray Use 1 Univers propionate 6-29 } [place] in ity o f 50 00:00: each [place] mcg/actuati 00 nostril Medic al on nasal daily. Branch spray butalbital- Yes [id number] 1{capsu Take 1 Univers aspirin-caf 6-29 le} capsule by it y of feine 00:00: mouth [place] 50-325-40 00 every 6 Medical mg per (six) Branch capsule hours as needed for Pain (Migraine MORGAN). amoxicillin Yes [id number] 1{tbl} Take 1 Univers -clavulanat 6-29 tablet by ity of e 00:00: mouth 2 [place] (AUGMENTIN) 00 (two) Medical 875-125 mg times Branch per tablet daily. nicotine Yes [id number] 1{patch Apply 1 Univers mg/24 hr 6-29 } Patch to ity of patch 00:00: area(s) [place] 00 every 24 Medical (twenty-fo Branch ur) hours. Apply 21mg patch daily x 6 weeks; then apply 14mf patch daily x 2 weeks; then apply 7mg patch daily x 2 weeks. Stop smoking on initiation of therapy nicotine Yes [id number] 1{patch Apply 1 Univers mg/24 hr 6-29 } Patch to ity of patch 00:00: area(s) [place] 00 daily. Medical Apply 21mg Branch patch daily x 6 weeks; then apply 14mf patch daily x 2 weeks; then apply 7mg patch daily x 2 weeks. Stop smoking on initiation of therapy nicotine 7 Yes [id number] 1{patch Apply 1 Univers mg/24 hr 6-29 } Patch to ity of patch 00:00: area(s) [place] 00 every 24 Medical (twenty-fo Branch ur) hours. Apply 21mg patch daily x 6 weeks; then apply 14mf patch daily x 2 weeks; then apply 7mg patch daily x 2 weeks. Stop smoking on initiation of therapy fluticasone Yes [id number] 1{spray Use 1 Univers propionate 6-29 } [place] in ity o f 50 00:00: each [place] mcg/actuati 00 nostril Medic al on nasal daily. Branch spray amoxicillin 2022- No [id number] 1{tbl} Take 1 Univers -clavulanat 6-29 02-06 tablet by it y of e 00:00: 00:00 mouth 2 [place] (AUGMENTIN) 00 :00 (two) Medical 875-125 mg times Branch per tablet daily. Immunizations Ordered Filled Immunization Date Status Comments [facility] e Immunization Name Name TD Pres-Free 2022-06-15 Completed University o f 00:00:00 [facility] Vital Signs Vital Name Observation Time Observation Value Comments Source Systolic blood 2022-06-15 23:02:35 124 mm[Hg] Univer sity of [facility] Diastolic blood 2022-06-15 23:02:35 81 mm[Hg] Unive rsity of [facility] Heart rate 2022-06-15 23:02:35 97 /min Universi ty of [facility] Body temperature 2022-06-15 23:02:35 37.22 Qi [facility] ersity [facility] Respiratory rate 2022-06-15 23:02:35 16 /min [facility] O[facility] saturation in 2022-06-15 23:02:35 98 /min [facility] Arterial blood by [facility] Pulse oximetry Branch Body height 2022-06-15 22:47:00 165.1 cm Universi ty of [facility] Body weight 2022-06-15 22:47:00 92.987 kg Universi ty of [facility] BMI 2022-06-15 22:47:00 34.11 kg/m2 Universi ty [facility] Systolic blood 2022-05-28 00:34:00 147 mm[Hg] Univer sity of [facility] Diastolic blood 2022-05-28 00:34:00 87 mm[Hg] Unive rsity of [facility] Heart rate 2022-05-28 00:34:00 107 /min Universi ty of [facility] Body temperature 2022-05-28 00:34:00 37.11 Qi Univ ersity of [facility] Respiratory rate 2022-05-28 00:34:00 20 /min Univ ersity of [facility] Body height 2022-05-28 00:34:00 152.4 cm Universi ty of [facility] Body weight 2022-05-28 00:34:00 83.915 kg Universi ty of [facility] BMI 2022-05-28 00:34:00 36.13 kg/m2 Universi ty of [place] [facility] Oxygen saturation in 2022-05-28 00:34:00 99 /min University of Arterial blood by [place] [facility] al[facility] Pulse oximetry Branch Systolic blood 2021-10-04 17:39:00 120 mm[Hg] Univer sity of pressure [place] [facility] Diastolic blood 2021-10-04 17:39:00 80 mm[Hg] Unive rsity of pressure [place] [facility] Heart rate 2021-10-04 17:39:00 73 /min Universi ty of [place] [facility] Respiratory rate 2021-10-04 17:39:00 18 /min Univ ersity of [place] [facility] Oxygen saturation in 2021-10-04 17:39:00 97 /min University of Arterial blood by [facility] Pulse oximetry Branch Body temperature 2021-10-04 15:46:00 37.5 Qi Univ ersity of [place] [facility] Body height 2021-10-04 15:46:00 152.4 cm Universi ty of [place] [facility] Body weight 2021-10-04 15:46:00 81.647 kg Universi ty of [place] [facility] BMI 2021-10-04 15:46:00 35.15 kg/m2 Universi ty of [place] [facility] Body height 2021-02-16 02:18:00 152.4 cm Universi ty of [place] [facility] Body weight 2021-02-16 02:18:00 90.266 kg Universi ty of [place] [facility] BMI 2021-02-16 02:18:00 38.86 kg/m2 Universi ty of [place] [facility] Oxygen saturation in 2021-02-16 02:18:00 99 /min University of Arterial blood by [facility] Pulse oximetry Branch Systolic blood 2021-02-16 02:18:00 131 mm[Hg] Univer sity of pressure [place] [facility] Diastolic blood 2021-02-16 02:18:00 81 mm[Hg] Unive rsity of pressure [place] [facility] Heart rate 2021-02-16 02:18:00 99 /min Universi ty of [place] [facility] Body temperature 2021-02-16 02:18:00 37.22 Qi Univ ersity of [place] [facility] Respiratory rate 2021-02-16 02:18:00 18 /min Univ ersity of [place] [facility] Systolic blood 2021-02-13 14:34:00 125 mm[Hg] Univer sity of pressure [place] [facility] Diastolic blood 2021-02-13 14:34:00 74 mm[Hg] Unive rsity of pressure [place] [facility] Heart rate 2021-02-13 14:34:00 103 /min Universi ty of [place] [facility] Body temperature 2021-02-13 14:34:00 37.56 Qi [facility] ersity of [place] [facility] Respiratory rate 2021-02-13 14:34:00 18 /min [facility] [place] [facility] Body height 2021-02-13 14:34:00 152.4 cm Universi ty of [place] [facility] Body weight 2021-02-13 14:34:00 90.674 kg Universi ty of [place] [facility] BMI 2021-02-13 14:34:00 39.04 kg/m2 [facility] ty of [place] [facility] Oxygen saturation in 2021-02-13 14:34:00 98 /min [facility] Arterial blood by [facility] Pulse oximetry Branch Procedures Procedure Date / Time Performed Performing Clinician Molly cardoza ED LACERATION REPAIR 2022-06-15 23:53:19 Nicci Pickett [facility] ity of [place] [facility] CONSENT/REFUSAL FOR 2022-06-15 22:43:25 Doctor Unassigned, No Un iversity of [place] DIAGNOSIS AND Name Medical Branch TREATMENT CONSENT/REFUSAL FOR 2022-05-28 00:31:56 Doctor Unassigned, No Un iversity of [place] DIAGNOSIS AND Name Medical Branch TREATMENT NOTICE OF PRIVACY 2021-10-04 15:41:13 Doctor Unassigned, No [facility] [place] PRACT[facility] Name Medical Branch CONSENT/REFUSAL FOR 2021-10-04 15:40:49 Doctor Unassigned, No Un iversity of [place] DIAGNOSIS AND Name Medical Branch TREATMENT CONSENT/REFUSAL FOR 2021-02-16 02:11:53 Doctor Unassigned, No Un iversity of [place] DIAGNOSIS AND Name Medical Branch TREATMENT POCT GRP A STREP 2021-02-13 15:09:00 Koko Killian [facility] (MOLECULAR) Medical Branch Encounters Start End Encounter Admission Attending Care Care Encounter Source Date/Time Date/Time Type Type Clinicians Facility Department ID 2021-02-18 Emergency [facility] [id number] Univers 09:18:43 ity [facility] 2022-06-15 2022-06-15 Emergency [facility] [id number] Univers 16:49:00 18:00:00 NICCI oakley [facility] 2022-06-15 2022-06-15 [facility] [id number] Univers 16:49:00 18:00:00 Nicci Garcia [place] [id number] i ty of [place] [id number] [facility] [id number] [address] 2022-05-27 2022-05-27 Emergency [facility] ERT [id number] Univers 18:36:00 19:27:00 NICCI oakley [facility] 2022-05-27 2022-05-27 [facility] [id number] Univers 18:36:00 19:27:00 Nicci Garcia [place] [id number] i ty of [facility] [id number] [place] [facility] [id number] [address] 2021-10-04 2021-10-04 Emergency [facility] [id number] Univers 10:50:00 12:40:00 MYA amykat [facility] 2021-10-04 2021-10-04 [facility] [id number] Univers 10:50:00 12:40:00 Mya SINGH [id number] ity of [place] [id number] [place] [facility] [id number] [address] 2021-03-08 2021-03-08 Isaac MELANIE ForrestCristina [id number] Univers 00:00:00 00:00:00 Management Melony ALEXANDRA [id number] ity of [place] [id number] [place] [id number] [address] 2021-02-15 2021-02-15 Emergency [facility] E[facility] [id number] Univers 21:20:00 21:42:[address] [facility] 2021-02-15 2021-02-15 Emergency [facility] [id number] Univers 21:20:00 21:42:00 Nicci [facility] [id number] i ty of [facility] [id number] [place] [employer] [id number] [place] [id number] [place] 2021-02-13 2021-02-13 Outpatient Nancy BUSTILLOS [facility] [id number] Univers 10:00:00 10:00:00 [facility] 2021-02-13 2021-02-13 Urgent Provider, [place] [facility] [id number] Univers 09:26:05 09:46:05 [facility] [id number] ity [facility] [id number] [place]?Blea [id number] [address] Medical Office Building 2020-10-17 2020-10-17 Outpatient Nancy BUSTILLOS [facility] [id number] Univers 19:45:00 19:45:00 [facility] 2019-06-14 2019-06-14 Emergency X [facility] ERT [id number] Univers 05:27:00 06:16:[address] [facility] Results Test Description Test Time Test Comments Results Result Comments Source POCT GRP A STREP (MOLECULAR) 2021-02-13 15:09:00 Test Item Value Reference Range Interpretation Comme nts POCT GP A STREP (test code = 87219-9) Negative Negative - Negat romero Lab Interpretation (test code = 05323-1) Normal [facility]
--- NOTE | 2022-07-04 10:55 | RAD REPORT ---
EXAM DESCRIPTION: US - Extremity Nonvascular Complete - 07/04/2022 10:30 am CLINICAL HISTORY: Right axillary mass COMPARISON: None FINDINGS: A 2.1 centimeter mass is present within the right axilla. It contains cystic and echogenic areas. There is increased flow to the periphery. IMPRESSION: 2.1 centimeter palpable mass right axilla. This may represent an infected lymph node.
--- NOTE | 2022-07-04 11:06 | ER ---
Nurse's Notes [facility] Name: Anna Pizarro Age: 32 yrs Sex: Female : 1990 Arrival Date: 07/04/2022 Time: 10:07 Bed 16 Private MD: Diagnosis: Acute lymphadenitis, unspecified Presentation: 07/04 10:08 Chief complaint: Patient states: possible abscess to right axillae x 2 months ago, pt aa5 states "I was taking clindamycin for it but it started flaring up about 1 week ago". 10:08 Coronavirus screen: At this time, the client does not indicate any symptoms associated aa5 with coronavirus-19. Ebola Screen: Patient denies travel to an Ebola-affected area in the 21 days before illness onset. Initial Sepsis Screen: Does the patient meet any 2 criteria? HR > 90 bpm. Does the patient have a suspected source of infection? No. Patient's initial sepsis screen is negative. Risk Assessment: Do you want to hurt yourself or someone else? Patient reports no desire to harm self or others. Onset of symptoms was June 2022. 10:08 Acuity: EDWIN 4 aa5 10:08 Method Of Arrival: Ambulatory aa5 Triage Assessment: 10:40 General: Appears in no apparent distress. comfortable, Behavior is calm, appropriate db for age. Pain: Complains of pain in right axillary redness. 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 - Social history:: Smoking status: Patient reports the use of cigarette tobacco products, smokes one pack cigarettes per day. Screenin:41 [facility] ED Fall Risk Assessment (Adult) History of falling in the last 3 months, db including since admission No falls in past 3 months (0 pts) Confusion or Disorientation No (0 pts) Intoxicated or Sedated No (0 pts) Impaired Gait No (0 pts) Mobility Assist Device Used No (0 pt) Altered Elimination No (0 pt) Score/Fall Risk Level 0 - 2 = Low Risk Oriented to surroundings, Maintained a safe environment. Abuse screen: Denies threats or abuse. Denies injuries from another. Nutritional screening: No deficits noted. Tuberculosis screening: No symptoms or risk factors identified. Assessment: 10:41 Reassessment: Patient appears in no apparent distress at this time. Patient and/or db family updated on plan of care and expected duration. Pain level reassessed. Patient is alert, oriented x 3, equal unlabored respirations, skin warm/dry/pink. right under arm redness and swelling x 2 months. General: Appears in no apparent distress. comfortable, Behavior is calm, cooperative. Neuro: Level of Consciousness is awake, alert, obeys commands, Oriented to person, place, time, situation. Vital Signs: 10:08 BP 131 / 75; Pulse 96; Resp 16 S; Temp 98.6(O); Pulse Ox 96% on R/A; Weight 97.52 kg aa5 (R); Height 5 ft. 0 in. (R); 10:42 BP 131 / 75; Pulse 76; Resp 16; Temp 98.8(TE); Pulse Ox 100% ; db 10:08 Body Mass Index 41.99 (97.52 kg, 152.4 cm) aa5 ED Course: 10:07 Patient arrived in ED. mr 10:08 Arm band placed on Patient placed in an exam room, on a stretcher. aa5 10:09 Dai Peoples FNP-C is [facility]. kb 10:09 Fritz Sandoval MD is Attending Physician. kb 10:15 Kaity Gardner, RN is Primary Nurse. db 10:16 Triage completed. aa5 10:32 Extremity Nonvascular Complete In Process Unspecified. EDMS Administered Medications: No medications were administered Outcome: 11:05 Discharge ordered by . kb Signatures: Dispatcher [employer] EDMS Dai Peoples FNP-C FNP-Elissa Marisa FloresClaire RN RN aa5 aKity Gardner, MILES RN db Corrections: (The following items were deleted from the chart) 10:15 10:14 Allergies: Flagyl; aa5 aa5 10:42 10:42 No provider procedures requiring assistance completed. db db
--- NOTE | 2022-07-04 11:06 | EDPHYS ---
Physician Documentation [facility] Name: Anna Pizarro Age: 32 yrs Sex: Female : 1990 Arrival Date: 07/04/2022 Time: 10:07 Bed 16 Private MD: ED Physician Fritz Sandoval JTAC: 07/04 10:17 LMP 06/15/2022 aa5 Historical: - Allergies: 10:14 Levaquin; aa5 - Home Meds: 10:14 None [Active]; aa5 - PMHx: 10:14 Migraines; PCOS; aa5 - PSHx: 10:14 None; aa5 - Immunization history:: Client reports having NOT received the Covid vaccine. - Social history:: Smoking status: Patient reports the use of cigarette tobacco products, smokes one pack cigarettes per day. Vital Signs: 10:08 BP 131 / 75; Pulse 96; Resp 16 S; Temp 98.6(O); Pulse Ox 96% on R/A; Weight 97.52 kg aa5 (R); Height 5 ft. 0 in. (R); 10:42 BP 131 / 75; Pulse 76; Resp 16; Temp 98.8(TE); Pulse Ox 100% ; db 10:08 Body Mass Index 41.99 (97.52 kg, 152.4 cm) aa5 MDM: 10:09 Patient medically screened. kb 07/04 10:17 Order name: Extremity Nonvascular Complete; Complete Time: 10:59 EDMS Administered Medications: No medications were administered Disposition Summary: 07/04/22 11:05 Discharge Ordered Location: Home kb Condition: Stable kb Diagnosis - Acute lymphadenitis, unspecified kb Followup: kb - With: Emergency Department - When: As needed - Reason: Worsening of condition Followup: kb - With: Private Physician - When: 2 - 3 days - Reason: Recheck today's complaints, Continuance of care, Re-evaluation by your physician Discharge Instructions: - Discharge Summary Sheet kb - Lymphadenopathy kb Forms: - Medication Reconciliation Form kb - Thank You Letter kb - Antibiotic Education kb - Prescription Opioid Use kb Prescriptions: - Doxycycline Hyclate 100 mg Oral Tablet - take 1 tablet by ORAL route every 12 hours; 20 tablet; Refills: 0, Product kb Selection Permitted - Bactrim DS 800-160 mg Oral Tablet - take 1 tablet by ORAL route every 12 hours for 7 days; 14 tablet; Refills: 0, kb Product Selection Permitted Signatures: Dispatcher [employer] Dai Williamson, Claire Graham, RN RN aa5 Corrections: (The following items were deleted from the chart) 10:15 10:13 Extrmty Nonvasular Limited+[id number] ordered. EDMS EDMS 10:15 10:14 Allergies: Flagyl; aa5 aa5
[2022-07-04] MEDS ORDERED: LIDOCAINE JELLY 2% 5 ML SYRINGE TOP ONE (12:13)
[2022-07-04 15:29] VITALS: TEMP 98.8
[2022-07-04 15:30] VITALS: BP 142/92; O2SAT 99
== END 2022-07-04 11:20 | disposition home or self-care (01) ==
LOC: ER 10:04
DX: L04.2 Acute lymphadenitis of upper limb (principal); Z88.1 Allergy status to other antibiotic agents
CPT/HCPCS: 76881; 99283

== ENCOUNTER 2022-07-09 20:24 | Emergency (ER) | payer SELFPAY ==
--- OUTSIDE RECORDS SUMMARY | 2022-07-09 20:27 | XMS REPORT | Continuity of Care Document ---
:1990 Author Organization [facility] t Address [address] [place] [address] [place] [id number] Care Team Providers Name Role Phone PCP, PATIENT DOES NOT HAVE A Primary Care Physician Unavaila ble NICCI PICKETT Attending Clinician Unavailable Nicci Desir Attending Clinician MYA RATLIFF Attending Clinician Unavailable Mya Ratliff DO Attending Clinician Melony Forrest LMSW Attending Clinician Unavailable MAGALI BUSTILLOS Attending Clinician Unavailable Provider, [facility] Attending Clinician Unavailable Magali Cross Attending Clinician EDI RGAY Attending Clinician Unavailable EDI GRAY Admitting Clinician [...] Disease Active Overview: Un marichuy dependence dependence - Formattin ity of with with 00:00: g of this [place] current current 00 note Medical use use might be Branch different from the original. 1 pack per day since 16 years old (10 pack-year as of 11/05) Nicotine Nicotine Disease Active Overview: Un marichuy dependence dependence 11-06 Formattin ity of with with 00:00: g of this [place] current current 00 note Medical use use might be Branch different from the original. 1 pack per day since 16 years old (10 pack-year as of 11/05) Chronic Chronic Disease Active Overview: Univ ers fatigue fatigue 11-06 Formattin ity o f 00:00: g of this [place] 00 note Medical might be Branch different from the original. Will be evaluated by GI in 11/2016 for associate d bowel issues and then hematolog y Generalize Generalize Disease Active U nivers d anxiety d anxiety 5-15 ity of disorder disorder 00:00: [place] [address] [place] [address] Branch Abdominal Abdominal Disease Active Uni vers pain, pain, 5-01 ity of chronic, chronic, 00:00: [place] left lower left lower 00 Me dical quadrant quadrant Branch Leukocytos Leukocytos Disease Active U nivers is is 5- ity of 00:00: [place] 00 [facility] Branch Obesity Obesity Disease Active Univers (BMI (BMI 3-09 ity of 30-39.9) 30-39.9) 00:00: [place] 00 Medical Branch Allergies, Adverse Reactions, Alerts Allergy Allergy Status Severity Reaction(s) Onset Inactive Treating Comm ents Source Name Type Date Date Clinician Metronid Propensi Active Dizziness Uni vers azole ty to 3-20 ity of adverse 00:00: [place] reaction 00 Medical s Branch METRONID DRUG Active Dizziness Unive rs AZOLE INGREDI 3-20 ity of 00:00: [place] [address] [facility] Social History Social Habit Start Date Stop Date Quantity Comments Source History of Cigarette Smoker Universi ty of tobacco use [facility] Exposure to 2022-06-05 2022-06-15 Not sure [facility] SARS-CoV-2 00:00:00 16:45:00 [facility] [place] [facility] (event) [place] Alcohol intake 2022-05-27 2022-05-27 0 /d University of 00:00:00 00:00:00 [facility] Tobacco use and 2016-08-19 2016-08-19 Smokeless tobacco Un iversity of exposure 00:00:00 00:00:00 non-user [facility] Sex Ass[birth year] At [birth year] Universit y of 00:00:00 00:00:00 [facility] Smoking Status Start Date Stop Date Source Smokes tobacco daily 2016-08-19 00:00:00 Univers ity of [facility] Medications Ordered Filled Start Stop Current Ordering Indication Dosage Frequency Signature Comments Components Source Medication Medication Date Date Medication? Clinician (SIG) Name Name clindamycin 2022- Yes [id number] 450mg Take 3 Univers 150 mg 05-27 [id number] capsules ity of capsule 00:00: 05:59 by mouth [place] 00 :00 in the Medical morning Branch and 3 capsules at noon and 3 capsules in the evening. Do all this for 10 days. HYDROcodone 2021- No 1{tbl} 1 tablet, Univers -acetaminop 10-04 Oral, ity of hen (NORCO 17:00: 15:52 ONCE, 1 [place] 5) 5-325 mg 00 :00 dose, On [facility] tablet u Branch tablet 10/04/21 at 1200, YO benzonatate 2020-04 Yes [id number] 100mg Take 1 Univers 100 mg 0-28 capsule by ity of capsule 00:00: mouth 3 [place] 00 (three) Medical times Branch daily as needed for Cough. albuterol 2020-04 Yes [id number] 2{puff} Inhale 2 Univers 90 0-28 Puffs ity of mcg/actuati 00:00: every 4 [place] as on inhaler 00 (four) Medical hours as Branch needed for Wheezing or Shortness of Breath. benzonatate 2020-04 Yes [id number] 100mg Take 1 Univers 100 mg 0-28 capsule by ity of capsule 00:00: mouth 3 [place] 00 (three) Medical times Branch daily as needed for Cough. albuterol 2020-04 Yes [id number] 2{puff} Inhale 2 Univers 90 0-28 Puffs ity of mcg/actuati 00:00: every 4 [place] on inhaler 00 (four) Medical hours as Branch needed for Wheezing or Shortness of Breath. benzonatate 2020-04 Yes [id number] 100mg Take 1 Univers 100 mg 0-28 capsule by ity of capsule 00:00: mouth 3 [place] 00 (three) Medical times Branch daily as needed for Cough. albuterol 2020-04 Yes [id number] 2{puff} Inhale 2 Univers 90 0-28 Puffs ity of mcg/actuati 00:00: every 4 [place] on inhaler 00 (four) Medical hours as Branch needed for Wheezing or Shortness of Breath. benzonatate 2020-04 Yes [id number] 100mg Take 1 Univers 100 mg 0-28 capsule by ity of capsule 00:00: mouth 3 [place] 00 (three) Medical times Branch daily as needed for Cough. albuterol 2020-04 Yes [id number] 2{puff} Inhale 2 Univers 90 0-28 Puffs ity of mcg/actuati 00:00: every 4 [place] on inhaler 00 (four) Medical hours as Branch needed for Wheezing or Shortness of Breath. benzonatate 2020-04 Yes [id number] 100mg Take 1 Univers 100 mg 0-28 capsule by ity of capsule 00:00: mouth 3 [place] 00 (three) Medical times Branch daily as needed for Cough. albuterol 2020-04 Yes [id number] 2{puff} Inhale 2 Univers 90 0-28 Puffs ity of mcg/actuati 00:00: every 4 [place] on inhaler 00 (four) Medical hours as Branch needed for Wheezing or Shortness of Breath. bromphenira 2020-04- No [id number] 5mL Take 5 mL Univers mine-pseudo 0-26 -06 by mouth 4 i ty of ephedrine-D 00:00: 04:59 (four) [place] M (BROMFED 00 :00 times Medical DM) 2-30-10 daily as Bran ch mg/5 mL needed for syrup Congestion /Allergies or Cough for up to 10 days. bromphenira 2020-04- No [id number] 5mL Take 5 mL Univers mine-pseudo 0-26 11-06 by mouth 4 i ty of ephedrine-D 00:00: 04:59 (four) [place] M (BROMFED 00 :00 times Medical DM) 2-30-10 daily as Bran ch mg/5 mL needed for syrup Congestion /Allergies or Cough for up to 10 days. butalbital- Yes [id number] 1{capsu Take 1 Univers aspirin-caf 6-29 le} capsule by it y of feine 00:00: mouth [place] 50-325-40 00 every 6 Medical mg per (six) Branch capsule hours as needed for Pain (Migraine MORGAN). amoxicillin Yes [id number] 1{tbl} Take 1 Univers -clavulanat 6-29 tablet by ity of e 00:00: mouth 2 [place] (AUGMENTIN) 00 (two) Medical 875-125 mg times Branch per tablet daily. nicotine 14 Yes [id number] 1{patch Apply 1 Univers mg/24 hr 6-29 } Patch to ity of patch 00:00: area(s) [place] 00 every 24 Medical (twenty-fo Branch ur) hours. Apply 21mg patch daily x 6 weeks; then apply 14mf patch daily x 2 weeks; then apply 7mg patch daily x 2 weeks. Stop smoking on initiation of therapy nicotine Yes [id number] 1{patch Apply 1 Univers mg/24 hr 6-29 } Patch to ity of patch 00:00: area(s) [place] 00 daily. Medical Apply 21mg Branch patch daily x 6 weeks; then apply 14mf patch daily x 2 weeks; then apply 7mg patch daily x 2 weeks. Stop smoking on initiation of therapy nicotine 7 Yes [id number] 1{patch Apply 1 Univers mg/24 hr 6-29 } Patch to ity of patch 00:00: area(s) [place] 00 every 24 Medical (twenty-fo Branch ur) hours. Apply 21mg patch daily x 6 weeks; then apply 14mf patch daily x 2 weeks; then apply 7mg patch daily x 2 weeks. Stop smoking on initiation of therapy fluticasone Yes [id number] 1{spray Use 1 Univers propionate 6-29 } [place] in ity o f 50 00:00: each [place] mcg/actuati 00 nostril Medic al on nasal daily. Branch spray butalbital- Yes [id number] 1{capsu Take 1 Univers aspirin-caf 6-29 le} capsule by it y of feine 00:00: mouth [place] 50-325-40 00 every 6 Medical mg per (six) Branch capsule hours as needed for Pain (Migraine MORGAN). amoxicillin Yes [id number] 1{tbl} Take 1 Univers -clavulanat 6-29 tablet by ity of e 00:00: mouth 2 [place] (AUGMENTIN) 00 (two) Medical 875-125 mg times Branch per tablet daily. nicotine Yes [id number] 1{patch Apply 1 Univers mg/24 hr 6-29 } Patch to ity of patch 00:00: area(s) [place] 00 every 24 Medical (twenty-fo Branch ur) hours. Apply 21mg patch daily x 6 weeks; then apply 14mf patch daily x 2 weeks; then apply 7mg patch daily x 2 weeks. Stop smoking on initiation of therapy nicotine Yes [id number] 1{patch Apply 1 Univers mg/24 hr 6-29 } Patch to ity of patch 00:00: area(s) [place] 00 daily. Medical Apply 21mg Branch patch daily x 6 weeks; then apply 14mf patch daily x 2 weeks; then apply 7mg patch daily x 2 weeks. Stop smoking on initiation of therapy nicotine Yes [id number] 1{patch Apply 1 Univers mg/24 hr 6-29 } Patch to ity of patch 00:00: area(s) [place] 00 every 24 Medical (twenty-fo Branch ur) hours. Apply 21mg patch daily x 6 weeks; then apply 14mf patch daily x 2 weeks; then apply 7mg patch daily x 2 weeks. Stop smoking on initiation of therapy fluticasone Yes [id number] 1{spray Use 1 Univers propionate 6-29 } [place] in ity o f 50 00:00: each [place] mcg/actuati 00 nostril Medic al on nasal daily. Branch spray butalbital- Yes [id number] 1{capsu Take 1 Univers aspirin-caf 629 le} capsule by it y of feine 00:00: mouth [place] 50-325-40 00 every 6 Medical mg per (six) Branch capsule hours as needed for Pain (Migraine MORGAN). nicotine Yes [id number] 1{patch Apply 1 Univers mg/24 hr 6-29 } Patch to ity of patch 00:00: area(s) [place] 00 every 24 Medical (twenty-fo Branch ur) hours. Apply 21mg patch daily x 6 weeks; then apply 14mf patch daily x 2 weeks; then apply 7mg patch daily x 2 weeks. Stop smoking on initiation of therapy nicotine Yes [id number] 1{patch Apply 1 Univers mg/24 hr 6-29 } Patch to ity of patch 00:00: area(s) [place] 00 daily. Medical Apply 21mg Branch patch daily x 6 weeks; then apply 14mf patch daily x 2 weeks; then apply 7mg patch daily x 2 weeks. Stop smoking on initiation of therapy nicotine 7 Yes [id number] 1{patch Apply 1 Univers mg/24 hr 6-29 } Patch to ity of patch 00:00: area(s) [place] 00 every 24 Medical (twenty-fo Branch ur) hours. Apply 21mg patch daily x 6 weeks; then apply 14mf patch daily x 2 weeks; then apply 7mg patch daily x 2 weeks. Stop smoking on initiation of therapy fluticasone Yes [id number] 1{spray Use 1 Univers propionate 6-29 } [place] in ity o f 50 00:00: each [place] mcg/actuati 00 nostril Medic al on nasal daily. Branch spray butalbital- Yes [id number] 1{capsu Take 1 Univers aspirin-caf 6-29 le} capsule by it y of feine 00:00: mouth [place] 50-325-40 00 every 6 Medical mg per (six) Branch capsule hours as needed for Pain (Migraine MORGAN). nicotine 14 Yes [id number] 1{patch Apply 1 Univers mg/24 hr 6-29 } Patch to ity of patch 00:00: area(s) [place] 00 every 24 Medical (twenty-fo Branch ur) hours. Apply 21mg patch daily x 6 weeks; then apply 14mf patch daily x 2 weeks; then apply 7mg patch daily x 2 weeks. Stop smoking on initiation of therapy nicotine 21 Yes [id number] 1{patch Apply 1 Univers mg/24 hr 6-29 } Patch to ity of patch 00:00: area(s) [place] 00 daily. Medical Apply 21mg Branch patch daily x 6 weeks; then apply 14mf patch daily x 2 weeks; then apply 7mg patch daily x 2 weeks. Stop smoking on initiation of therapy nicotine 7 Yes [id number] 1{patch Apply 1 Univers mg/24 hr 6-29 } Patch to ity of patch 00:00: area(s) [place] 00 every 24 Medical (twenty-fo Branch ur) hours. Apply 21mg patch daily x 6 weeks; then apply 14mf patch daily x 2 weeks; then apply 7mg patch daily x 2 weeks. Stop smoking on initiation of therapy fluticasone Yes [id number] 1{spray Use 1 Univers propionate 6-29 } [place] in ity o f 50 00:00: each [place] mcg/actuati 00 nostril Medic al on nasal daily. Branch spray butalbital- Yes [id number] 1{capsu Take 1 Univers aspirin-caf 6-29 le} capsule by it y of feine 00:00: mouth [place] 50-325-40 00 every 6 Medical mg per (six) Branch capsule hours as needed for Pain (Migraine MORGAN). amoxicillin Yes [id number] 1{tbl} Take 1 Univers -clavulanat 6-29 tablet by ity of e 00:00: mouth 2 [place] (AUGMENTIN) 00 (two) Medical 875-125 mg times Branch per tablet daily. nicotine Yes [id number] 1{patch Apply 1 Univers mg/24 hr 6-29 } Patch to ity of patch 00:00: area(s) [place] 00 every 24 Medical (twenty-fo Branch ur) hours. Apply 21mg patch daily x 6 weeks; then apply 14mf patch daily x 2 weeks; then apply 7mg patch daily x 2 weeks. Stop smoking on initiation of therapy nicotine Yes [id number] 1{patch Apply 1 Univers mg/24 hr 6-29 } Patch to ity of patch 00:00: area(s) [place] 00 daily. Medical Apply 21mg Branch patch daily x 6 weeks; then apply 14mf patch daily x 2 weeks; then apply 7mg patch daily x 2 weeks. Stop smoking on initiation of therapy nicotine 7 Yes [id number] 1{patch Apply 1 Univers mg/24 hr 6-29 } Patch to ity of patch 00:00: area(s) [place] 00 every 24 Medical (twenty-fo Branch ur) hours. Apply 21mg patch daily x 6 weeks; then apply 14mf patch daily x 2 weeks; then apply 7mg patch daily x 2 weeks. Stop smoking on initiation of therapy fluticasone Yes [id number] 1{spray Use 1 Univers propionate 6-29 } [place] in ity o f 50 00:00: each [place] mcg/actuati 00 nostril Medic al on nasal daily. Branch spray butalbital- Yes [id number] 1{capsu Take 1 Univers aspirin-caf 6-29 le} capsule by it y of feine 00:00: mouth [place] 50-325-40 00 every 6 Medical mg per (six) Branch capsule hours as needed for Pain (Migraine MORGAN). amoxicillin Yes [id number] 1{tbl} Take 1 Univers -clavulanat 6-29 tablet by ity of e 00:00: mouth 2 [place] (AUGMENTIN) 00 (two) Medical 875-125 mg times Branch per tablet daily. nicotine 14 Yes [id number] 1{patch Apply 1 Univers mg/24 hr 6-29 } Patch to ity of patch 00:00: area(s) [place] 00 every 24 Medical (twenty-fo Branch ur) hours. Apply 21mg patch daily x 6 weeks; then apply 14mf patch daily x 2 weeks; then apply 7mg patch daily x 2 weeks. Stop smoking on initiation of therapy nicotine 21 Yes [id number] 1{patch Apply 1 Univers mg/24 hr 6-29 } Patch to ity of patch 00:00: area(s) [place] 00 daily. Medical Apply 21mg Branch patch daily x 6 weeks; then apply 14mf patch daily x 2 weeks; then apply 7mg patch daily x 2 weeks. Stop smoking on initiation of therapy nicotine 7 Yes [id number] 1{patch Apply 1 Univers mg/24 hr 6-29 } Patch to ity of patch 00:00: area(s) [place] 00 every 24 Medical (twenty-fo Branch ur) hours. Apply 21mg patch daily x 6 weeks; then apply 14mf patch daily x 2 weeks; then apply 7mg patch daily x 2 weeks. Stop smoking on initiation of therapy fluticasone Yes [id number] 1{spray Use 1 Univers propionate 6-29 } [place] in ity o f 50 00:00: each [place] mcg/actuati 00 nostril Medic al on nasal daily. Branch spray amoxicillin 2022- No [id number] 1{tbl} Take 1 Univers -clavulanat 6-29 02-06 tablet by it y of e 00:00: 00:00 mouth 2 [place] (AUGMENTIN) 00 :00 (two) Medical 875-125 mg times Branch per tablet daily. Immunizations Ordered Filled Immunization Date Status Comments Sour e Immunization Name Name TD Pres-Free 2022-06-15 Completed University o f 00:00:00 [facility] Vital Signs Vital Name Observation Time Observation Value Comments Source Systolic blood 2022-06-15 23:02:35 124 mm[Hg] Univer sity of pressure [facility] Diastolic blood 2022-06-15 23:02:35 81 mm[Hg] Unive rsity of pressure [facility] Heart rate 2022-06-15 23:02:35 97 /min Universi ty of [facility] Body temperature 2022-06-15 23:02:35 37.22 Qi Univ ersity of [facility] Respiratory rate 2022-06-15 23:02:35 16 /min Univ ersity of [facility] Oxygen saturation in 2022-06-15 23:02:35 98 /min [facility] Arterial blood by [facility] Pulse oximetry Branch Body height 2022-06-15 22:47:00 165.1 cm Universi ty of [place] [facility] [place] Body weight 2022-06-15 22:47:00 92.987 kg Universi ty of [place] [facility] Branch BMI 2022-06-15 22:47:00 34.11 kg/m2 Universi ty of [facility] [place] [facility] Branch Systolic blood 2022-05-28 00:34:00 147 mm[Hg] Univer sity of pressure [facility] Diastolic blood 2022-05-28 00:34:00 87 mm[Hg] Unive rsity of pressure [facility] Heart rate 2022-05-28 00:34:00 107 /min Universi ty of [place] [facility] [place] Body temperature 2022-05-28 00:34:00 37.11 Qi Univ ersity of [facility] [place] [facility] Branch Respiratory rate 2022-05-28 00:34:00 20 /min Univ ersity of [facility] [place] [facility] Branch Body height 2022-05-28 00:34:00 152.4 cm Universi ty of [place] [facility] [place] Body weight 2022-05-28 00:34:00 83.915 kg Universi ty of [place] [facility] [place] BMI 2022-05-28 00:34:00 36.13 kg/m2 Universi ty of [place] [facility] Oxygen saturation in 2022-05-28 00:34:00 99 /min University of Arterial blood by [facility] Pulse oximetry Branch Systolic blood 2021-10-04 17:39:00 120 mm[Hg] Univer sity of pressure [place] [facility] Diastolic blood 2021-10-04 17:39:00 80 mm[Hg] Unive rsity of pressure [place] [facility] Heart rate 2021-10-04 17:39:00 73 /min Universi ty of [place] [facility] Respiratory rate 2021-10-04 17:39:00 18 /min Univ ersity of [place] [facility] Oxygen saturation in 2021-10-04 17:39:00 97 /min University of Arterial blood by [facility] Pulse oximetry Branch Body temperature 2021-10-04 15:46:00 37.5 Qi Univ ersity of [place] [facility] Body height 2021-10-04 15:46:00 152.4 cm Universi ty of [place] [facility] Body weight 2021-10-04 15:46:00 81.647 kg Universi ty of [place] [facility] BMI 2021-10-04 15:46:00 35.15 kg/m2 Universi ty of [place] [facility] Body height 2021-02-16 02:18:00 152.4 cm Universi ty of [place] [facility] Body weight 2021-02-16 02:18:00 90.266 kg Universi ty of [place] [facility] BMI 2021-02-16 02:18:00 38.86 kg/m2 Universi ty of [place] [facility] Oxygen saturation in 2021-02-16 02:18:00 99 /min University of Arterial blood by [facility] Pulse oximetry Branch Systolic blood 2021-02-16 02:18:00 131 mm[Hg] Univer sity of pressure [place] [facility] Diastolic blood 2021-02-16 02:18:00 81 mm[Hg] Unive rsity of pressure [place] [facility] Heart rate 2021-02-16 02:18:00 99 /min Universi ty of [place] [facility] Body temperature 2021-02-16 02:18:00 37.22 Qi Univ ersity of [place] [facility] Respiratory rate 2021-02-16 02:18:00 18 /min Univ ersity of [place] [facility] Systolic blood 2021-02-13 14:34:00 125 mm[Hg] Univer sity of pressure [place] [facility] Diastolic blood 2021-02-13 14:34:00 74 mm[Hg] Unive rsity of pressure [place] [facility] Heart rate 2021-02-13 14:34:00 103 /min [facility] Body temperature 2021-02-13 14:34:00 37.56 Qi [facility] [place] [facility] [place] [facility] Respiratory rate 2021-02-13 14:34:00 18 /min [facility] [place] [facility] [place] [facility] Body height 2021-02-13 14:34:[address] [facility] Medical Branch Body weight 2021-02-13 14:34:00 90.674 kg [facility] Medical Branch BMI 2021-02-13 14:34:00 39.04 kg/m2 [facility] Medical [place] Oxygen saturation in 2021-02-13 14:34:00 98 /min [facility] Arterial blood by [facility] Pulse oximetry Branch Procedures Procedure Date / Time Performed Performing Clinician Opal sony ED LACERATION REPAIR 2022-06-15 23:53:[address] [facility] ity of [place] [facility] CONSENT/REFUSAL FOR 2022-06-15 22:43:25 Doctor Unassigned, No Un iversity of [place] DIAGNOSIS AND Name Medical Branch TREATMENT CONSENT/REFUSAL FOR 2022-05-28 00:31:56 Doctor Unassigned, No Un iversity of [place] DIAGNOSIS AND Name Medical Branch TREATMENT NOTICE OF PRIVACY 2021-10-04 15:41:13 Doctor Unassigned, No [facility] [place] [facility] Name Medical Branch CONSENT/REFUSAL FOR 2021-10-04 15:40:49 Doctor Unassigned, No Un iversity of [place] DIAGNOSIS AND Name Medical Branch TREATMENT CONSENT/REFUSAL FOR 2021-02-16 02:11:53 Doctor Unassigned, No Un iversity of [place] DIAGNOSIS AND Name Medical Branch TREATMENT POCT GRP A STREP 2021-02-13 15:09:00 Koko Killian [facility] y [facility] (MOLECULAR) Medical Branch Encounters Start End Encounter Admission Attending Care Care Encounter Source Date/Time Date/Time Type Type Clinicians Facility Department ID 2021-02-18 Emergency [facility] [id number] Univers 09:18:43 ity of [place] [facility] 2022-06-15 2022-06-15 [facility] [id number] Univers 16:49:00 18:00:00 NICCI oakley [facility] 2022-06-15 2022-06-15 [facility] [id number] Univers 16:49:00 18:00:00 Nicci SINGH [id number] i ty of [facility] [id number] [facility] [id number] [address] 2022-05-27 2022-05-27 [facility] [id number] Univers 18:36:00 19:27:00 NICCI oakley [facility] 2022-05-27 2022-05-27 [facility] [id number] Univers 18:36:00 19:27:00 Nicci NEGROYOLIS [id number] i ty of [facility] [id number] [facility] [id number] [address] 2021-10-04 2021-10-04 [facility] [id number] Univers 10:50:00 12:40:00 MYA oakley [facility] 2021-10-04 2021-10-04 [facility] [id number] Univers 10:50:00 12:40:00 Mya SINGH [id number] ity of [place] [id number] [facility] [id number] [address] 2021-03-08 2021-03-08 AMBERLY Brito [id number] Univers 00:00:00 00:00:00 Management Melony ALEXANDRA [id number] ity of [place] [id number] [facility] [id number] [address] 2021-02-15 2021-02-15 [facility] [id number] Univers 21:20:00 21:42:00 NICCI oakley [facility] 2021-02-152021-02-15 Emergency Charlette [facility] [id number] Univers 21:20:00 21:42:00 Nicci SINGH [id number] i ty of [facility] [id number] [place] [id number] [address] 2021-02-13 2021-02-13 Outpatient Nancy BUSTILLOS [facility] [id number] Univers 10:00:00 10:00:00 [facility] 2021-02-13 2021-02-13 Urgent Provider, [facility] [id number] Univers 09:26:05 09:46:05 [facility] [id number] ity [facility] [id number] [place]?Blea [id number] [address] Medical Office Building 2020-10-17 2020-10-17 Outpatient Nancy BUSTILLOS [facility] [id number] Univers 19:45:00 19:45:00 [facility] 2019-06-14 2019-06-14 Emergency X MARINA [facility] ERT [id number] Univers 05:27:00 06:16:00 EDI [facility] Results Test Description Test Time Test Comments Results Result Comments Source POCT GRP A STREP (MOLECULAR) 2021-02-13 15:09:00 Test Item Value Reference Range Interpretation Comme nts POCT GP A STREP (test code = 04566-3) Negative Negative - Negat romero Lab Interpretation (test code = 11569-1) Normal [facility]
[2022-07-09] MEDS ORDERED: LIDOCAINE 1% MPF 5 ML VIAL ONE (21:53)
--- NOTE | 2022-07-09 22:15 | ER ---
Nurse's Notes [facility] Name: Anna Pizarro Age: 32 yrs Sex: Female : 1990 Arrival Date: 07/09/2022 Time: 20:25 Bed 11 Private MD: Diagnosis: Cutaneous abscess of right axilla Presentation: 07/09 20:56 Chief complaint: Patient states: C/o swollen lymph node to right axilla are for past ll3 2-3 days, c/o nausea, H/A, dizziness, and constipation. Coronavirus screen: Vaccine status: Patient reports being unvaccinated. At this time, the client does not indicate any symptoms associated with coronavirus-19. Ebola Screen: No symptoms or risks identified at this time. Initial Sepsis Screen: Does the patient meet any 2 criteria? HR > 90 bpm. Does the patient have a suspected source of infection? No. Patient's initial sepsis screen is negative. Risk Assessment: Do you want to hurt yourself or someone else? Patient reports no desire to harm self or others. Onset of symptoms was July 06, 2022. 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 - Social history:: Smoking status: Patient reports the use of cigarette tobacco products, smokes one pack cigarettes per day. Assessment: 22:33 Reassessment: pt treated and discharged by Wolf VARGAS not seen by this RN. bb Vital Signs: 20:56 BP 127 / 88; Pulse 103; Resp 18; Temp 98.5(O); Pulse Ox 98% on R/A; Weight 97.52 kg ll3 (R); Height 5 ft. 0 in. (R); Pain 10/10; 20:56 Body Mass Index 41.99 (97.52 kg, 152.4 cm) ll3 20:56 Pain Scale: Adult ll3 ED Course: 20:25 Patient arrived in ED. rg4 20:46 Wolf Askew PA is PHCP. jmm 20:46 James Solis MD is Attending Physician. m 20:58 Triage completed. ll3 20:58 Arm band placed on Patient placed in waiting room, Patient notified of wait time. ll3 22:14 Ravindra Knight MD is Referral Physician. m Administered Medications: 22:33 Drug: Lidocaine Infiltration (1 %) 20 ml {Note: administered by provider to affected bb area.} Volume: 20 ml; Route: Infiltration; Outcome: 22:14 Discharge ordered by . latha 22:34 Patient left the ED. bb Signatures: Wolf Askew PA PA jmm Ballard, Brenda, RN RN Marie Estrella rg4 Cliff Estevez, RN RN 3
--- NOTE | 2022-07-09 22:15 | EDPHYS ---
Physician Documentation [facility] Name: Anna Pizarro Age: 32 yrs Sex: Female : 1990 Arrival Date: 07/09/2022 Time: 20:25 Bed 11 Private MD: ED Physician James Solis HPI: 07/09 22:11 This 32 yrs old Female presents to ER via Ambulatory with complaints of Abscess. jmm 22:11 the patient presents with a swollen area of the right axilla. Onset: The jmm symptoms/episode began/occurred gradually. Is a 32-year-old female with a history of migraines and PCOS that presents emerged part with complaints of right armpit swelling. Patient was evaluated previously diagnosed with an infected lymph node. Currently taking antibiotics. Patient states swelling is increasing.. 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 - Social history:: Smoking status: Patient reports the use of cigarette tobacco products, smokes one pack cigarettes per day. ROS: 22:11 Constitutional: Negative for fever, chills, and weight loss, Cardiovascular: Negative jmm for chest pain, palpitations, and edema, Respiratory: Negative for shortness of breath, cough, wheezing, and pleuritic chest pain. 22:11 Skin: Positive for abscess. 22:11 All other systems are negative. Exam: 22:11 Constitutional: This is a well developed, well nourished patient who is awake, alert, jmm and in no acute distress. Head/Face: atraumatic. Eyes: EOMI, no conjunctival erythema appreciated ENT: Moist Mucus Membranes Neck: Trachea midline, Supple Chest/axilla: Normal chest wall appearance and motion. Cardiovascular: Regular rate and rhythm. No edema appreciated Respiratory: Normal respirations, no respiratory distress appreciated Back: Normal ROM 22:11 MS/ Extremity: Moves all extremities, no obvious deformities appreciated, no edema noted to the lower extremities Neuro: Awake and alert Psych: Behavior is normal, Mood is normal, Patient is cooperative and pleasant 22:11 Skin: Erythema and swelling noted to the right axilla. Vital Signs: 20:56 BP 127 / 88; Pulse 103; Resp 18; Temp 98.5(O); Pulse Ox 98% on R/A; Weight 97.52 kg ll3 (R); Height 5 ft. 0 in. (R); Pain 10/10; 20:56 Body Mass Index 41.99 (97.52 kg, 152.4 cm) ll3 20:56 Pain Scale: Adult ll3 Procedures: 22:13 I \T\ D: Incision and drainage was performed for an abscess of the right axilla. Prepped jmm with Betadine, Anesthetized with 2 ml's 1% Lidocaine. Incised with #11 blade. Drained large amount purulent fluid. Packed with iodoform gauze, Dressing: sterile 4x4 gauze, the patient tolerated the procedure well. MDM: 21:12 Patient medically screened. jmm 22:13 Differential diagnosis: Abscess, hidradenitis suppurativa. Data reviewed: vital signs, [facility] nurses notes. I considered the following discharge prescriptions or medication management in the emergency department Medications were administered in the Emergency Department. See MAR. Counseling: I had a detailed discussion with the patient and/or guardian regarding: the historical points, exam findings, and any diagnostic results supporting the discharge/admit diagnosis, the need for outpatient follow up, to return to the emergency department if symptoms worsen or persist or if there are any questions or concerns that arise at home. Administered Medications: 22:33 Drug: Lidocaine Infiltration (1 %) 20 ml {Note: administered by provider to affected bb area.} Volume: 20 ml; Route: Infiltration; Disposition Summary: 07/09/22 22:14 Discharge Ordered Location: Home [facility] Condition: Stable [facility] Diagnosis - Cutaneous abscess of right axilla [facility] Followup: [facility] - With: Ravindra Knight MD - When: 2 - 3 days - Reason: Recheck today's complaints, Continuance of care, Re-evaluation by your physician Discharge Instructions: - Discharge Summary Sheet [facility] - Skin Abscess [facility] - Incision and Drainage, Care After m Forms: - Medication Reconciliation Form [facility] - Thank You Letter [facility] - Antibiotic Education [facility] - Prescription Opioid Use [facility] Prescriptions: - Ultracet 37.5-325 mg Oral Tablet - take 1 tablet by ORAL route every 6 hours - for up to 5 days; do not exceed 8 jmm tablets per day.; 20 tablet; Refills: 0, Product Selection Permitted Signatures: Wolf Askew PA PA jmm Ballard, Brenda, RN RN bb Cliff Estevez RN RN ll3
[2022-07-09 22:59] VITALS: BP 127/88; TEMP 98.5; O2SAT 98
== END 2022-07-09 22:34 | disposition home or self-care (01) ==
LOC: ER 20:24
PROC: 0H9BXZZ Drainage of Right Upper Arm Skin, External Approach (ICD-10-PCS; principal; 2022-07-09)
DX: L02.411 Cutaneous abscess of right axilla (principal)
CPT/HCPCS: J2001

== ENCOUNTER 2022-07-10 23:29 | Emergency (ER) | payer SELFPAY ==
--- OUTSIDE RECORDS SUMMARY | 2022-07-10 23:32 | XMS REPORT | Continuity of Care Document ---
:1990 Author Organization [facility] [place] t Address [address] [place] [address] [place] [id number] Care Team Providers Name Role Phone PCP, [...] of with with 00:00: g of this [place] current current 00 note Medical use use might be Branch different from the original. 1 pack per day since 16 years old (10 pack-year as of 11/05) Chronic Chronic Disease Active Overview: Univ ers fatigue fatigue 11-06 Formattin ity o f 00:00: g of this [place] 00 note Medical might be Branch different from the original. Will be evaluated by GI in 11/2016 for associate d bowel issues and then hematolog y Generalize Generalize Disease Active U nivers d anxiety d anxiety 5-15 ity of disorder disorder 00:00: [place] [address] [place] [address] Branch Abdominal Abdominal Disease Active Uni vers pain, pain, 5-01 ity of chronic, chronic, 00:00: [place] left lower left lower 00 Me dical quadrant quadrant Branch Leukocytos Leukocytos Disease Active U nivers is is 5- ity of 00:00: [place] 00 [facility] Branch Obesity Obesity Disease Active Univers (BMI (BMI 3-09 ity of 30-39.9) 30-39.9) 00:00: [place] 00 Medical Branch Allergies, Adverse Reactions, Alerts Allergy Allergy Status Severity Reaction(s) Onset Inactive Treating Comm ents Source Name Type Date Date Clinician Metronid Propensi Active Dizziness Uni vers azole ty to 3-20 ity of adverse 00:00: [place] reaction 00 Medical s Branch METRONID DRUG Active Dizziness Unive rs AZOLE INGREDI 3-20 ity of 00:00: [place] 00 [facility] Social History Social Habit Start Date Stop Date Quantity Comments Source History of Cigarette Smoker Universi ty of tobacco use [facility] Exposure to 2022-06-05 2022-06-15 Not sure [facility] SARS-CoV-2 00:00:00 16:45:00 [facility] (event) [place] Alcohol intake 2022-05-27 2022-05-27 0 /d University of 00:00:00 00:00:00 [facility] Tobacco use and 2016-08-19 2016-08-19 Smokeless tobacco Un iversity of exposure 00:00:00 00:00:00 non-user [facility] Sex [birth year] Universit y of 00:00:00 00:00:00 [facility] Smoking Status Start Date Stop Date Source Smokes tobacco daily 2016-08-19 00:00:00 Univers ity of [facility] Medications Ordered Filled Start Stop Current Ordering Indication Dosage Frequency Signature Comments Components Source Medication Medication Date Date Medication? Clinician (SIG) Name Name clindamycin 2022- Yes [id number] 450mg Take 3 Univers 150 mg 05-27 [id number] capsules ity of capsule 00:00: 05:59 by mouth [place] 00 :00 in the Medical morning Branch and 3 capsules at noon and 3 capsules in the evening. Do all this for 10 days. HYDROcodone 2021- No 1{tbl} 1 tablet, Univers -acetaminop 10-04 Oral, ity of hen (NORCO 17:00: 15:52 ONCE, 1 [place] 5) 5-325 mg 00 :00 dose, On [facility] alba tablet u Branch tablet 10/04/21 at 1200, YO benzonatate 2020-04 Yes [id number] 100mg Take 1 Univers 100 mg 0-28 capsule by ity of capsule 00:00: mouth 3 [place] 00 (three) Medical times Branch daily as needed for Cough. albuterol 2020-04 Yes [id number] 2{puff} Inhale 2 Univers 90 0-28 Puffs ity of mcg/actuati 00:00: every 4 [place] as on inhaler 00 (four) Medical hours as Branch needed for Wheezing or Shortness of Breath. benzonatate 2020-04 Yes [id number] 100mg Take 1 Univers 100 mg 0-28 capsule by ity of capsule 00:00: mouth 3 [place] 00 (three) Medical times Branch daily as needed for Cough. albuterol 2020-04 Yes [id number] 2{puff} Inhale 2 Univers 90 0-28 Puffs ity of mcg/actuati 00:00: every 4 [place] on inhaler 00 (four) Medical hours as Branch needed for Wheezing or Shortness of Breath. benzonatate 2020-04 Yes [id number] 100mg Take 1 Univers 100 mg 0-28 capsule by ity of capsule 00:00: mouth 3 [place] 00 (three) Medical times Branch daily as needed for Cough. albuterol 2020-04 Yes [id number] 2{puff} Inhale 2 Univers 90 0-28 Puffs ity of mcg/actuati 00:00: every 4 [place] on inhaler 00 (four) Medical hours as Branch needed for Wheezing or Shortness of Breath. benzonatate 2020-04 Yes [id number] 100mg Take 1 Univers 100 mg 0-28 capsule by ity of capsule 00:00: mouth 3 [place] 00 (three) Medical times Branch daily as needed for Cough. albuterol 2020-04 Yes [id number] 2{puff} Inhale 2 Univers 90 0-28 Puffs ity of mcg/actuati 00:00: every 4 [place] on inhaler 00 (four) Medical hours as Branch needed for Wheezing or Shortness of Breath. benzonatate 2020-04 Yes [id number] 100mg Take 1 Univers 100 mg 0-28 capsule by ity of capsule 00:00: mouth 3 [place] 00 (three) Medical times Branch daily as needed for Cough. albuterol 2020-04 Yes [id number] 2{puff} Inhale 2 Univers 90 0-28 Puffs ity of mcg/actuati 00:00: every 4 [place] on inhaler 00 (four) Medical hours as Branch needed for Wheezing or Shortness of Breath. bromphenira 2020-04- No [id number] 5mL Take 5 mL Univers mine-pseudo 0-26 -06 by mouth 4 i ty of ephedrine-D 00:00: 04:59 (four) [place] M (BROMFED 00 :00 times Medical DM) 2-30-10 daily as Bran ch mg/5 mL needed for syrup Congestion /Allergies or Cough for up to 10 days. bromphenira 2020-04- No [id number] 5mL Take 5 mL Univers mine-pseudo 0-26 11-06 by mouth 4 i ty of ephedrine-D 00:00: 04:59 (four) [place] M (BROMFED 00 :00 times Medical DM) 2-30-10 daily as Bran ch mg/5 mL needed for syrup Congestion /Allergies or Cough for up to 10 days. butalbital- Yes [id number] 1{capsu Take 1 Univers aspirin-caf 6-29 le} capsule by it y of feine 00:00: mouth [place] 50-325-40 00 every 6 Medical mg per (six) Branch capsule hours as needed for Pain (Migraine MORGAN). amoxicillin Yes [id number] 1{tbl} Take 1 Univers -clavulanat 6-29 tablet by ity of e 00:00: mouth 2 [place] (AUGMENTIN) 00 (two) Medical 875-125 mg times Branch per tablet daily. nicotine 14 Yes [id number] 1{patch Apply 1 Univers mg/24 hr 6-29 } Patch to ity of patch 00:00: area(s) [place] 00 every 24 Medical (twenty-fo Branch ur) hours. Apply 21mg patch daily x 6 weeks; then apply 14mf patch daily x 2 weeks; then apply 7mg patch daily x 2 weeks. Stop smoking on initiation of therapy nicotine Yes [id number] 1{patch Apply 1 Univers mg/24 hr 6-29 } Patch to ity of patch 00:00: area(s) [place] 00 daily. Medical Apply 21mg Branch patch daily x 6 weeks; then apply 14mf patch daily x 2 weeks; then apply 7mg patch daily x 2 weeks. Stop smoking on initiation of therapy nicotine 7 Yes [id number] 1{patch Apply 1 Univers mg/24 hr 6-29 } Patch to ity of patch 00:00: area(s) [place] 00 every 24 Medical (twenty-fo Branch ur) hours. Apply 21mg patch daily x 6 weeks; then apply 14mf patch daily x 2 weeks; then apply 7mg patch daily x 2 weeks. Stop smoking on initiation of therapy fluticasone Yes [id number] 1{spray Use 1 Univers propionate 6-29 } [place] in ity o f 50 00:00: each [place] mcg/actuati 00 nostril Medic al on nasal daily. Branch spray butalbital- Yes [id number] 1{capsu Take 1 Univers aspirin-caf 6-29 le} capsule by it y of feine 00:00: mouth [place] 50-325-40 00 every 6 Medical mg per (six) Branch capsule hours as needed for Pain (Migraine MORGAN). amoxicillin Yes [id number] 1{tbl} Take 1 Univers -clavulanat 6-29 tablet by ity of e 00:00: mouth 2 [place] (AUGMENTIN) 00 (two) Medical 875-125 mg times Branch per tablet daily. nicotine Yes [id number] 1{patch Apply 1 Univers mg/24 hr 6-29 } Patch to ity of patch 00:00: area(s) [place] 00 every 24 Medical (twenty-fo Branch ur) hours. Apply 21mg patch daily x 6 weeks; then apply 14mf patch daily x 2 weeks; then apply 7mg patch daily x 2 weeks. Stop smoking on initiation of therapy nicotine Yes [id number] 1{patch Apply 1 Univers mg/24 hr 6-29 } Patch to ity of patch 00:00: area(s) [place] 00 daily. Medical Apply 21mg Branch patch daily x 6 weeks; then apply 14mf patch daily x 2 weeks; then apply 7mg patch daily x 2 weeks. Stop smoking on initiation of therapy nicotine Yes [id number] 1{patch Apply 1 Univers mg/24 hr 6-29 } Patch to ity of patch 00:00: area(s) [place] 00 every 24 Medical (twenty-fo Branch ur) hours. Apply 21mg patch daily x 6 weeks; then apply 14mf patch daily x 2 weeks; then apply 7mg patch daily x 2 weeks. Stop smoking on initiation of therapy fluticasone Yes [id number] 1{spray Use 1 Univers propionate 6-29 } [place] in ity o f 50 00:00: each [place] mcg/actuati 00 nostril Medic al on nasal daily. Branch spray butalbital- Yes [id number] 1{capsu Take 1 Univers aspirin-caf 629 le} capsule by it y of feine 00:00: mouth [place] 50-325-40 00 every 6 Medical mg per (six) Branch capsule hours as needed for Pain (Migraine MORGAN). nicotine Yes [id number] 1{patch Apply 1 Univers mg/24 hr 6-29 } Patch to ity of patch 00:00: area(s) [place] 00 every 24 Medical (twenty-fo Branch ur) hours. Apply 21mg patch daily x 6 weeks; then apply 14mf patch daily x 2 weeks; then apply 7mg patch daily x 2 weeks. Stop smoking on initiation of therapy nicotine Yes [id number] 1{patch Apply 1 Univers mg/24 hr 6-29 } Patch to ity of patch 00:00: area(s) [place] 00 daily. Medical Apply 21mg Branch patch daily x 6 weeks; then apply 14mf patch daily x 2 weeks; then apply 7mg patch daily x 2 weeks. Stop smoking on initiation of therapy nicotine 7 Yes [id number] 1{patch Apply 1 Univers mg/24 hr 6-29 } Patch to ity of patch 00:00: area(s) [place] 00 every 24 Medical (twenty-fo Branch ur) hours. Apply 21mg patch daily x 6 weeks; then apply 14mf patch daily x 2 weeks; then apply 7mg patch daily x 2 weeks. Stop smoking on initiation of therapy fluticasone Yes [id number] 1{spray Use 1 Univers propionate 6-29 } [place] in ity o f 50 00:00: each [place] mcg/actuati 00 nostril Medic al on nasal daily. Branch spray butalbital- Yes [id number] 1{capsu Take 1 Univers aspirin-caf 6-29 le} capsule by it y of feine 00:00: mouth [place] 50-325-40 00 every 6 Medical mg per (six) Branch capsule hours as needed for Pain (Migraine MORGAN). nicotine 14 Yes [id number] 1{patch Apply 1 Univers mg/24 hr 6-29 } Patch to ity of patch 00:00: area(s) [place] 00 every 24 Medical (twenty-fo Branch ur) hours. Apply 21mg patch daily x 6 weeks; then apply 14mf patch daily x 2 weeks; then apply 7mg patch daily x 2 weeks. Stop smoking on initiation of therapy nicotine 21 Yes [id number] 1{patch Apply 1 Univers mg/24 hr 6-29 } Patch to ity of patch 00:00: area(s) [place] 00 daily. Medical Apply 21mg Branch patch daily x 6 weeks; then apply 14mf patch daily x 2 weeks; then apply 7mg patch daily x 2 weeks. Stop smoking on initiation of therapy nicotine 7 Yes [id number] 1{patch Apply 1 Univers mg/24 hr 6-29 } Patch to ity of patch 00:00: area(s) [place] 00 every 24 Medical (twenty-fo Branch ur) hours. Apply 21mg patch daily x 6 weeks; then apply 14mf patch daily x 2 weeks; then apply 7mg patch daily x 2 weeks. Stop smoking on initiation of therapy fluticasone Yes [id number] 1{spray Use 1 Univers propionate 6-29 } [place] in ity o f 50 00:00: each [place] mcg/actuati 00 nostril Medic al on nasal daily. Branch spray butalbital- Yes [id number] 1{capsu Take 1 Univers aspirin-caf 6-29 le} capsule by it y of feine 00:00: mouth [place] 50-325-40 00 every 6 Medical mg per (six) Branch capsule hours as needed for Pain (Migraine MORGAN). amoxicillin Yes [id number] 1{tbl} Take 1 Univers -clavulanat 6-29 tablet by ity of e 00:00: mouth 2 [place] (AUGMENTIN) 00 (two) Medical 875-125 mg times Branch per tablet daily. nicotine Yes [id number] 1{patch Apply 1 Univers mg/24 hr 6-29 } Patch to ity of patch 00:00: area(s) [place] 00 every 24 Medical (twenty-fo Branch ur) hours. Apply 21mg patch daily x 6 weeks; then apply 14mf patch daily x 2 weeks; then apply 7mg patch daily x 2 weeks. Stop smoking on initiation of therapy nicotine Yes [id number] 1{patch Apply 1 Univers mg/24 hr 6-29 } Patch to ity of patch 00:00: area(s) [place] 00 daily. Medical Apply 21mg Branch patch daily x 6 weeks; then apply 14mf patch daily x 2 weeks; then apply 7mg patch daily x 2 weeks. Stop smoking on initiation of therapy nicotine 7 Yes [id number] 1{patch Apply 1 Univers mg/24 hr 6-29 } Patch to ity of patch 00:00: area(s) [place] 00 every 24 Medical (twenty-fo Branch ur) hours. Apply 21mg patch daily x 6 weeks; then apply 14mf patch daily x 2 weeks; then apply 7mg patch daily x 2 weeks. Stop smoking on initiation of therapy fluticasone Yes [id number] 1{spray Use 1 Univers propionate 6-29 } [place] in ity o f 50 00:00: each [place] mcg/actuati 00 nostril Medic al on nasal daily. Branch spray butalbital- Yes [id number] 1{capsu Take 1 Univers aspirin-caf 6-29 le} capsule by it y of feine 00:00: mouth [place] 50-325-40 00 every 6 Medical mg per (six) Branch capsule hours as needed for Pain (Migraine MORGAN). amoxicillin Yes [id number] 1{tbl} Take 1 Univers -clavulanat 6-29 tablet by ity of e 00:00: mouth 2 [place] (AUGMENTIN) 00 (two) Medical 875-125 mg times Branch per tablet daily. nicotine 14 Yes [id number] 1{patch Apply 1 Univers mg/24 hr 6-29 } Patch to ity of patch 00:00: area(s) [place] 00 every 24 Medical (twenty-fo Branch ur) hours. Apply 21mg patch daily x 6 weeks; then apply 14mf patch daily x 2 weeks; then apply 7mg patch daily x 2 weeks. Stop smoking on initiation of therapy nicotine 21 Yes [id number] 1{patch Apply 1 Univers mg/24 hr 6-29 } Patch to ity of patch 00:00: area(s) [place] 00 daily. Medical Apply 21mg Branch patch daily x 6 weeks; then apply 14mf patch daily x 2 weeks; then apply 7mg patch daily x 2 weeks. Stop smoking on initiation of therapy nicotine 7 Yes [id number] 1{patch Apply 1 Univers mg/24 hr 6-29 } Patch to ity of patch 00:00: area(s) [place] 00 every 24 Medical (twenty-fo Branch ur) hours. Apply 21mg patch daily x 6 weeks; then apply 14mf patch daily x 2 weeks; then apply 7mg patch daily x 2 weeks. Stop smoking on initiation of therapy fluticasone Yes [id number] 1{spray Use 1 Univers propionate 6-29 } [place] in ity o f 50 00:00: each [place] mcg/actuati 00 nostril Medic al on nasal daily. Branch spray amoxicillin 2022- No [id number] 1{tbl} Take 1 Univers -clavulanat 6-29 02-06 tablet by it y of e 00:00: 00:00 mouth 2 [place] (AUGMENTIN) 00 :00 (two) Medical 875-125 mg times Branch per tablet daily. Immunizations Ordered Filled Immunization Date Status Comments Sour e Immunization Name Name TD Pres-Free 2022-06-15 Completed University o f 00:00:00 [facility] Vital Signs Vital Name Observation Time Observation Value Comments Source Systolic blood 2022-06-15 23:02:35 124 mm[Hg] Univer sity of pressure [facility] Diastolic blood 2022-06-15 23:02:35 81 mm[Hg] Unive rsity of pressure [facility] Heart rate 2022-06-15 23:02:35 97 /min Universi ty of [facility] Body temperature 2022-06-15 23:02:35 37.22 Qi Univ ersity of [facility] Respiratory rate 2022-06-15 23:02:35 16 /min Univ ersity of [facility] Oxygen saturation in 2022-06-15 23:02:35 98 /min [facility] Arterial blood by [facility] Pulse oximetry Branch Body height 2022-06-15 22:47:00 165.1 cm Universi ty of [place] [facility] [place] Body weight 2022-06-15 22:47:00 92.987 kg Universi ty of [place] [facility] Branch BMI 2022-06-15 22:47:00 34.11 kg/m2 Universi ty of [facility] Branch Systolic blood 2022-05-28 00:34:00 147 mm[Hg] Univer sity of pressure [facility] Diastolic blood 2022-05-28 00:34:00 87 mm[Hg] Unive rsity of pressure [facility] Heart rate 2022-05-28 00:34:00 107 /min Universi ty of [place] [facility] [place] Body temperature 2022-05-28 00:34:00 37.11 Qi Univ ersity of [facility] Branch Respiratory rate 2022-05-28 00:34:00 20 /min Univ ersity of [facility] Branch Body height 2022-05-28 00:34:00 152.4 cm Universi ty of [place] [facility] [place] Body weight 2022-05-28 00:34:00 83.915 kg Universi ty of [place] [facility] [place] BMI 2022-05-28 00:34:00 36.13 kg/m2 Universi ty of [place] [facility] Oxygen saturation in 2022-05-28 00:34:00 99 /min University of Arterial blood by [facility] [place] alba Pulse oximetry Branch Systolic blood 2021-10-04 17:39:00 120 mm[Hg] Univer sity of pressure [place] [facility] Diastolic blood 2021-10-04 17:39:00 80 mm[Hg] Unive rsity of pressure [place] [facility] Heart rate 2021-10-04 17:39:00 73 /min Universi ty of [place] [facility] Respiratory rate 2021-10-04 17:39:00 18 /min Univ ersity of [place] [facility] Oxygen saturation in 2021-10-04 17:39:00 97 /min University of Arterial blood by [facility] Pulse oximetry Branch Body temperature 2021-10-04 15:46:00 37.5 Qi Univ ersity of [place] [facility] Body height 2021-10-04 15:46:00 152.4 cm Universi ty of [place] [facility] Body weight 2021-10-04 15:46:00 81.647 kg Universi ty of [place] [facility] BMI 2021-10-04 15:46:00 35.15 kg/m2 Universi ty of [place] [facility] Body height 2021-02-16 02:18:00 152.4 cm Universi ty of [place] [facility] Body weight 2021-02-16 02:18:00 90.266 kg Universi ty of [place] [facility] BMI 2021-02-16 02:18:00 38.86 kg/m2 Universi ty of [place] [facility] Oxygen saturation in 2021-02-16 02:18:00 99 /min University of Arterial blood by [facility] Pulse oximetry Branch Systolic blood 2021-02-16 02:18:00 131 mm[Hg] Univer sity of pressure [place] [facility] Diastolic blood 2021-02-16 02:18:00 81 mm[Hg] Unive rsity of pressure [place] [facility] Heart rate 2021-02-16 02:18:00 99 /min Universi ty of [place] [facility] Body temperature 2021-02-16 02:18:00 37.22 Qi Univ ersity of [place] [facility] Respiratory rate 2021-02-16 02:18:00 18 /min Univ ersity of [place] [facility] Systolic blood 2021-02-13 14:34:00 125 mm[Hg] Univer sity of pressure [place] [facility] Diastolic blood 2021-02-13 14:34:00 74 mm[Hg] Unive rsity of pressure [place] [facility] Heart rate 2021-02-13 14:34:00 103 /min [facility] Medical Branch Body temperature 2021-02-13 14:34:00 37.56 Qi [facility] [place] [facility] Respiratory rate 2021-02-13 14:34:00 18 /min [facility] [place] [facility] Body height 2021-02-13 14:34:[address] [facility] Medical Branch Body weight 2021-02-13 14:34:00 90.674 kg [facility] Medical Branch BMI 2021-02-13 14:34:00 39.04 kg/m2 [facility] Medical [place] Oxygen saturation in 2021-02-13 14:34:00 98 /min [facility] Arterial blood by [facility] Pulse oximetry Branch Procedures Procedure Date / Time Performed Performing Clinician Opal sony ED LACERATION REPAIR 2022-06-15 23:53:19 Nicci Pickett [facility] ity of [place] [facility] CONSENT/REFUSAL FOR 2022-06-15 22:43:25 Doctor Unassigned, No Un iversity of [place] DIAGNOSIS AND Name Medical Branch TREATMENT CONSENT/REFUSAL FOR 2022-05-28 00:31:56 Doctor Unassigned, No Un iversity of [place] DIAGNOSIS AND Name Medical Branch TREATMENT NOTICE OF PRIVACY 2021-10-04 15:41:13 [facility], No [facility] Medical Branch CONSENT/REFUSAL FOR 2021-10-04 15:40:49 Doctor Unassigned, No Un iversity of [place] DIAGNOSIS AND Name Medical Branch TREATMENT CONSENT/REFUSAL FOR 2021-02-16 02:11:53 Doctor Unassigned, No Un iversity of [place] DIAGNOSIS AND Name Medical Branch TREATMENT POCT GRP A STREP 2021-02-13 15:09:00 Koko [facility] y [facility] (MOLECULAR) Medical Branch Encounters Start End Encounter Admission Attending Care Care Encounter Source Date/Time Date/Time Type Type Clinicians Facility Department ID 2021-02-18 Emergency [facility] [id number] Univers 09:18:43 ity of [place] [facility] 2022-06-15 2022-06-15 Emergency [facility] [id number] Univers 16:49:00 18:00:00 NICCI oakley [facility] 2022-06-15 2022-06-15 [facility] [id number] Univers 16:49:00 18:00:00 Nicci SINGH [id number] i ty of [facility] [id number] [place] [facility] [id number] [address] 2022-05-27 2022-05-27 Emergency [facility] [id number] Univers 18:36:00 19:27:00 NICCI oakley [facility] 2022-05-27 2022-05-27 [facility] [id number] Univers 18:36:00 19:27:00 Nicci NEGROYOLIS [id number] i ty of [facility] [id number] [place] [facility] [id number] [address] 2021-10-04 2021-10-04 Emergency [facility] [id number] Univers 10:50:00 12:40:00 MYA oakley [facility] 2021-10-04 2021-10-04 [facility] [id number] Univers 10:50:00 12:40:00 Mya SINGH [id number] ity of [place] [id number] [place] [facility] [id number] [address] 2021-03-08 2021-03-08 AMBERLY Brito [id number] Univers 00:00:00 00:00:00 Management Melony ALEXANDRA [id number] ity of [place] [id number] [facility] [id number] [address] 2021-02-15 2021-02-15 Emergency [facility] E[facility] [id number] Univers 21:20:00 21:42:00 NICCI oakley [facility] 2021-02-152021-02-15 Emergency Charlette [facility] [id number] Univers 21:20:00 21:42:00 Nicci SINGH [id number] i ty of [facility] [id number] [place] [id number] [address] 2021-02-13 2021-02-13 Outpatient Nancy BUSTILLOS [facility] [id number] Univers 10:00:00 10:00:00 [facility] 2021-02-13 2021-02-13 Urgent Provider, [facility] [id number] Univers 09:26:05 09:46:05 [facility] [id number] ity [facility] [id number] [place]lea [id number] [address] Medical Office Building 2020-10-17 2020-10-17 Outpatient Nancy BUSTILLOS [facility] [id number] Univers 19:45:00 19:45:00 [facility] 2019-06-14 2019-06-14 Emergency X MARINA [facility] ERT [id number] Univers 05:27:00 06:16:00 EDI [facility] Results Test Description Test Time Test Comments Results Result Comments Source POCT GRP A STREP (MOLECULAR) 2021-02-13 15:09:00 Test Item Value Reference Range Interpretation Comme nts POCT GP A STREP (test code = 89386-3) Negative Negative - Negat [facility] Interpretation (test code = 13534-2) Normal [facility]
[2022-07-11] MEDS ORDERED: IBUPROFEN 400 MG TAB ONE (00:15)
[2022-07-11] MEDS ORDERED: HYDROCODONE/APAP 10/325 TAB ONE (00:15)
[2022-07-11] MEDS ORDERED: LIDOCAINE 1% W/EPI 1:100,000 30 ML VIAL ONE (01:16)
[2022-07-11] MEDS ORDERED: BUPIVACAINE 0.5% PF 10 ML VIAL ONE (01:16)
--- NOTE | 2022-07-11 08:44 | ER ---
Nurse's Notes [facility] Name: Anna Pizarro Age: 32 yrs Sex: Female : 1990 Arrival Date: 07/10/2022 Time: 23:37 Bed 6 Private MD: Diagnosis: Cutaneous abscess of right axilla Presentation: 07/10 23:52 Chief complaint: Patient states: i had a cyst lanced last night and the pain is lg3 excruciating and is still bleeding. Coronavirus screen: Client denies travel out of the [place] in the last 14 days. At this time, the client does not indicate any symptoms associated with coronavirus-19. Ebola Screen: No symptoms or risks identified at this time. Initial Sepsis Screen: Does the patient meet any 2 criteria? No. Patient's initial sepsis screen is negative. Does the patient have a suspected source of infection? No. Patient's initial sepsis screen is negative. Risk Assessment: Do you want to hurt yourself or someone else? Patient reports no desire to harm self or others. Onset of symptoms was July 10, 2022. 23:52 Method Of Arrival: Ambulatory lg3 23:52 Acuity: EDWIN 4 lg3 Triage Assessment: 23:53 General: Appears in no apparent distress. uncomfortable, Behavior is cooperative, lg3 anxious, crying. Pain: Complains of pain in right axilla. EENT: No deficits noted. No signs and/or symptoms were reported regarding the EENT system. Neuro: No deficits noted. Skinner Agitation-Sedation Scale (RASS): 0 - Alert and Calm Level of Consciousness is awake, alert, obeys commands, Oriented to person, place, time, situation. Cardiovascular: No deficits noted. Denies chest pain, shortness of breath. Respiratory: No deficits noted. Airway is patent Respiratory effort is even, unlabored, Respiratory pattern is regular, symmetrical. GI: No deficits noted. No signs and/or symptoms were reported involving the gastrointestinal system. Abdomen is round non-distended, obese. : No deficits noted. No signs and/or symptoms were reported regarding the genitourinary system. Derm: Wound noted right axilla Reports pain that is 10 out of 10 on a pain scale. Musculoskeletal: Circulation, motion, and sensation intact. Range of motion: intact in all extremities. 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 Flu vaccine is not up to date. - Social history:: Smoking status: Patient reports the use of cigarette tobacco products, smokes one pack cigarettes per day. Patient/guardian denies using alcohol, street drugs. Screenin/23 00:23 Abuse screen: Denies threats or abuse. Denies injuries from another. Nutritional ha1 screening: No deficits noted. Tuberculosis screening: No symptoms or risk factors identified. Assessment: 07/10 23:50 GI: Abdomen is round non-distended. ha1 23:57 General: Appears uncomfortable, Behavior is anxious, crying. Pain: Complains of pain in ha1 right axilary area Pain does not radiate. Pain currently is 10 out of 10 on a pain scale. Neuro: Level of Consciousness is awake, alert, obeys commands, Oriented to person, place, time, situation. Cardiovascular: Capillary refill < 3 seconds Patient's skin is warm and dry. Respiratory: Airway is patent Respiratory effort is even, unlabored, Respiratory pattern is regular, symmetrical. : No signs and/or symptoms were reported regarding the genitourinary system. EENT: No signs and/or symptoms were reported regarding the EENT system. Derm: Skin is pink, warm \\T\\ dry. Reports pain that is 10 out of 10 on a pain scale. patient states " I had an abscess removed and the area where the procedure was done it is really painful". 07/11 01:17 Reassessment: Patient appears in no apparent distress at this time. Patient and/or jb4 family updated on plan of care and expected duration. Pain level reassessed. Patient is alert, oriented x 3, equal unlabored respirations, skin warm/dry/pink. I\\T\\D setup for provider. 02:17 Reassessment: Patient appears in no apparent distress at this time. Patient and/or jb4 family updated on plan of care and expected duration. Pain level reassessed. Patient is alert, oriented x 3, equal unlabored respirations, skin warm/dry/pink. Patient states feeling better. Vital Signs: 07/10 23:52 BP 129 / 85; Pulse 113; Resp 18 S; Temp 98.2(O); Pulse Ox 96% on R/A; Weight 97.52 kg lg3 (R); Height 5 ft. 0 in. (R); Pain 10/10; 07/11 00:18 BP 119 / 83; Pulse 94; Resp 20 S; Pulse Ox 99% on R/A; ha1 01:15 BP 109 / 72; Pulse 79; Resp 18 S; Pulse Ox 98% on R/A; ha1 07/10 23:52 Body Mass Index 41.99 (97.52 kg, 152.4 cm) lg3 07/10 23:52 Pain Scale: Adult 3 ED Course: 07/10 23:37 Patient arrived in ED. es 23:50 Hernando Guajardo PA is PHCP. cp 23:50 Jimmy Duque MD is Attending Physician. cp 23:53 Triage completed. lg3 23:53 Arm band placed on right wrist. lg3 07/11 00:22 Corby Rainey, RN is Primary Nurse. jb4 02:12 Beto Diaz MD is Referral Physician. cp 02:18 Assist provider with I \\T\\ D: of an abscess on right axilla. Patient did not have IV jb4 access during this emergency room visit. Administered Medications: 07/10 23:59 CANCELLED (Physician Discretion): Hydrocodone-Acetaminophen PO (7.5 mg-325 mg) 1 tabs cp PO once; RASS on ADMIN: Combtv4, Very Agttd3, Agttd2, Rstlss1, AlertClm0, Drwsy-1, Lt Sdtn-2, Mod Sdtn-3, Dp Sdtn-4, UnArsble-5 07/11 00:15 Drug: Ibuprofen PO 800 mg Route: PO; jb4 01:14 Follow up: Response: No adverse reaction; Marked relief of symptoms 00:15 Drug: HYDROcodone-acetaminophen PO 10 mg-325 mg 1 tabs Route: PO; jb4 01:14 Follow up: Response: No adverse reaction; Marked relief of symptoms jb4 01:37 Drug: Lidocaine-Epinephrine Infiltration -1%: (1:100,000) 10 ml {Note: Administered by jb4 ER provider..} Volume: 20 ml; Route: Infiltration; 01:39 Drug: Bupivacaine Infiltration (0.5 %) 10 ml {Note: Administered by ER provider..} jb4 Volume: 10 ml; Route: Infiltration; Outcome: 02:13 Discharge ordered by MD. chong 02:18 Discharged to home ambulatory. jb4 02:18 Condition: stable 02:18 Discharge instructions given to patient, Instructed on discharge instructions, follow up and referral plans. Demonstrated understanding of instructions, follow-up care. 02:18 Patient left the ED. jb4 Signatures: Angelique Rao Corey, PA PA cp Bryson, James, MILES RN jb4 Breann Corbin RN RN lg3 Sharee Pryor RN RN 1 Corrections: (The following items were deleted from the chart) 00:43 00:33 General: Appears uncomfortable, Behavior is anxious, crying, ha1 ha1 : 00:33 Pain: Complains of pain in right axilary area Pain does not radiate. Pain ha1 currently is 10 out of 10 on a pain scale. ha1 : 00:33 Neuro: Level of Consciousness is awake, alert, obeys commands, Oriented to ha1 person, place, time, situation, ha1 : 00:33 Cardiovascular: Capillary refill < 3 seconds Patient's skin is warm and dry. ha1 ha1 00:33 Respiratory: Airway is patent Respiratory effort is even, unlabored, Respiratory ha1 pattern is regular, symmetrical, ha1 : 00:33 GI: Abdomen is round non-distended, ha1 ha1 00:33 : No signs and/or symptoms were reported regarding the genitourinary system. ha1ha1 00:33 EENT: No signs and/or symptoms were reported regarding the EENT system. ha1 ha1 00:33 Derm: Skin is pink, warm \\T\\ dry. Reports pain that is 10 out of 10 on a pain ha1 scale. patient states " I had an abscess removed and the area where the procedure was done it is really painful" ha1
--- NOTE | 2022-07-11 08:44 | EDPHYS ---
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 Flu vaccine is not up to date. - Social history:: Smoking status: Patient reports the use of cigarette tobacco products, smokes one pack cigarettes per day. Patient/guardian denies using alcohol, street drugs. Vital Signs: 23:52 BP 129 / 85; Pulse 113; Resp 18 S; Temp 98.2(O); Pulse Ox 96% on R/A; Weight 97.52 kg lg3 (R); Height 5 ft. 0 in. (R); Pain 10/10; 07/11 00:18 BP 119 / 83; Pulse 94; Resp 20 S; Pulse Ox 99% on R/A; ha1 01:15 BP 109 / 72; Pulse 79; Resp 18 S; Pulse Ox 98% on R/A; ha1 07/10 23:52 Body Mass Index 41.99 (97.52 kg, 152.4 cm) lg3 07/10 23:52 Pain Scale: Adult lg3 MDM: 07/10 23:58 Patient medically screened. cp 07/11 01:06 Order name: I\T\D Setup; Complete Time: 01:14 cp Administered Medications: 23:59 CANCELLED (Physician Discretion): Hydrocodone-Acetaminophen PO (7.5 mg-325 mg) 1 tabs cp PO once; RASS on ADMIN: Combtv4, Very Agttd3, Agttd2, Rstlss1, AlertClm0, Drwsy-1, Lt Sdtn-2, Mod Sdtn-3, Dp Sdtn-4, UnArsble-5 07/11 00:15 Drug: Ibuprofen PO 800 mg Route: PO; jb4 01:14 Follow up: Response: No adverse reaction; Marked relief of symptoms 00:15 Drug: HYDROcodone-acetaminophen PO 10 mg-325 mg 1 tabs Route: PO; jb4 01:14 Follow up: Response: No adverse reaction; Marked relief of symptoms jb4 01:37 Drug: Lidocaine-Epinephrine Infiltration -1%: (1:100,000) 10 ml {Note: Administered by jb4 ER provider..} Volume: 20 ml; Route: Infiltration; 01:39 Drug: Bupivacaine Infiltration (0.5 %) 10 ml {Note: Administered by ER provider..} [facility] Volume: 10 ml; Route: Infiltration; Disposition Summary: 07/11/22 02:13 Discharge Ordered Location: Home cp Problem: new cp Symptoms: have improved cp Condition: Stable cp Diagnosis - Cutaneous abscess of right axilla cp Followup: cp - With: Beto Diaz MD - When: 1 - 2 days - Reason: Wound Recheck Discharge Instructions: - Discharge Summary Sheet cp - Skin Abscess cp - Incision and Drainage cp - Incision and Drainage, Care After cp Forms: - Medication Reconciliation Form cp - Thank You Letter cp - Antibiotic Education cp - Prescription Opioid Use cp Prescriptions: - Ibuprofen 800 mg Oral Tablet - take 1 tablet by ORAL route every 8 hours As needed take with food; 30 tablet; cp Refills: 0, Product Selection Permitted Signatures: Hernando Guajardo PA PA cp Corby Rainey RN RN jb4 Breann Corbin RN RN lg3 Corrections: (The following items were deleted from the chart) 07/10 23:59 23:59 Hydrocodone-Acetaminophen PO (7.5 mg-325 mg) 1 tabs PO once; RASS on ADMIN: cp Combtv4, Very Agttd3, Agttd2, Rstlss1, AlertClm0, Drwsy-1, Lt Sdtn-2, Mod Sdtn-3, Dp Sdtn-4, UnArsble-5 ordered. cp
[2022-07-11 13:22] VITALS: BP 109/72; O2SAT 98
== END 2022-07-11 02:18 | disposition home or self-care (01) ==
LOC: ER 23:29
DX: L02.411 Cutaneous abscess of right axilla (principal)

== ENCOUNTER 2022-07-11 12:08 | Emergency (ER) | payer SELFPAY ==
--- OUTSIDE RECORDS SUMMARY | 2022-07-11 12:12 | XMS REPORT | Continuity of Care Document ---
:1990 Author Organization [facility] t Address [address] [place] [address] [place] [id number] Care Team Providers Name Role Phone PCP, [...] of with with 00:00: g of this [place] current current 00 note Medical use use might be Branch different from the original. 1 pack per day since 16 years old (10 pack-year as of 11/05) Chronic Chronic Disease Active Overview: Univ ers fatigue fatigue 11-06 Formattin ity o f 00:00: g of this [place] 00 note Medical might be Branch different from the original. Will be evaluated by GI in 11/2016 for associate d bowel issues and then hematolog y Generalize Generalize Disease Active U nivers d anxiety d anxiety 5-15 ity of disorder disorder 00:00: [place] [address] [place] [address] Branch Abdominal Abdominal Disease Active Uni vers pain, pain, 5-01 ity of chronic, chronic, 00:00: [place] left lower left lower 00 Me dical quadrant quadrant Branch Leukocytos Leukocytos Disease Active U nivers is is 5- ity of 00:00: [place] 00 [facility] Branch Obesity Obesity Disease Active Univers (BMI (BMI 3-09 ity of 30-39.9) 30-39.9) 00:00: [place] 00 Medical Branch Allergies, Adverse Reactions, Alerts Allergy Allergy Status Severity Reaction(s) Onset Inactive Treating Comm ents Source Name Type Date Date Clinician Metronid Propensi Active Dizziness Uni vers azole ty to 3-20 ity of adverse 00:00: [place] reaction 00 Medical s Branch METRONID DRUG Active Dizziness Unive rs AZOLE INGREDI 3-20 ity of 00:00: [place] 00 [facility] Social History Social Habit Start Date Stop Date Quantity Comments Source History of Cigarette Smoker Universi ty of tobacco use [facility] Exposure to 2022-06-05 2022-06-15 Not sure [facility] SARS-CoV-2 00:00:00 16:45:00 [facility] [place] (event) [place] Alcohol intake 2022-05-27 2022-05-27 0 /d University of 00:00:00 00:00:00 [facility] Tobacco use and 2016-08-19 2016-08-19 Smokeless tobacco Un iversity of exposure 00:00:00 00:00:[address] [facility] Sex Ass[birth year] At [birth year] Universit y of 00:00:00 00:00:00 [facility] Smoking Status Start Date Stop Date Source Smokes tobacco daily 2016-08-19 00:00:[address] [facility] Medications Ordered Filled Start Stop Current Ordering Indication Dosage Frequency Signature Comments Components Source Medication Medication Date Date Medication? Clinician (SIG) Name Name clindamycin 2022- Yes [id number] 450mg Take 3 Univers 150 mg 05-27 [id number] capsules ity of capsule 00:00: 05:59 by mouth [place] 00 :00 in the Medical morning Branch and 3 capsules at noon and 3 capsules in the evening. Do all this for 10 days. HYDROcodone 2021- No 1{tbl} 1 tablet, Univers -acetaminop 10-04 Oral, ity of hen (NORCO 17:00: 15:52 ONCE, 1 [place] as 5) 5-325 mg 00 :00 dose, On [facility] tablet u Branch tablet 10/04/21 at 1200, YO benzonatate 2020-04 Yes [id number] 100mg Take 1 Univers 100 mg 0-28 capsule by ity of capsule 00:00: mouth 3 [place] 00 (three) Medical times Branch daily as needed for Cough. albuterol 2020-04 Yes [id number] 2{puff} Inhale 2 Univers 90 0-28 Puffs ity of mcg/actuati 00:00: every 4 [place] as on inhaler 00 (four) Medical hours as Branch needed for Wheezing or Shortness of Breath. benzonatate 2020-04 Yes [id number] 100mg Take 1 Univers 100 mg 0-28 capsule by ity of capsule 00:00: mouth 3 [place] 00 (three) Medical times Branch daily as needed for Cough. albuterol 2020-04 Yes [id number] 2{puff} Inhale 2 Univers 90 0-28 Puffs ity of mcg/actuati 00:00: every 4 [place] as on inhaler 00 (four) Medical hours as Branch needed for Wheezing or Shortness of Breath. benzonatate 2020-04 Yes [id number] 100mg Take 1 Univers 100 mg 0-28 capsule by ity of capsule 00:00: mouth 3 [place] 00 (three) Medical times Branch daily as needed for Cough. albuterol 2020-04 Yes [id number] 2{puff} Inhale 2 Univers 90 0-28 Puffs ity of mcg/actuati 00:00: every 4 [place] as on inhaler 00 (four) Medical hours as Branch needed for Wheezing or Shortness of Breath. benzonatate 2020-04 Yes [id number] 100mg Take 1 Univers 100 mg 0-28 capsule by ity of capsule 00:00: mouth 3 [place] 00 (three) Medical times Branch daily as needed for Cough. albuterol 2020-04 Yes [id number] 2{puff} Inhale 2 Univers 90 0-28 Puffs ity of mcg/actuati 00:00: every 4 [place] as on inhaler 00 (four) Medical hours as Branch needed for Wheezing or Shortness of Breath. benzonatate 2020-04 Yes [id number] 100mg Take 1 Univers 100 mg 0-28 capsule by ity of capsule 00:00: mouth 3 [place] 00 (three) Medical times Branch daily as needed for Cough. albuterol 2020-04 Yes [id number] 2{puff} Inhale 2 Univers 90 0-28 Puffs ity of mcg/actuati 00:00: every 4 [place] as on inhaler 00 (four) Medical hours as Branch needed for Wheezing or Shortness of Breath. bromphenira 2020-04- No [id number] 5mL Take 5 mL Univers mine-pseudo 0-26 -06 by mouth 4 i ty of ephedrine-D 00:00: 04:59 (four) [place] M (BROMFED 00 :00 times Medical DM) 2-30-10 daily as Bran ch mg/5 mL needed for syrup Congestion /Allergies or Cough for up to 10 days. bromphenira 2020-04- No [id number] 5mL Take 5 mL Univers mine-pseudo 0-26 11-06 by mouth 4 i ty of ephedrine-D 00:00: 04:59 (four) [place] M (BROMFED 00 :00 times Medical DM) 2-30-10 daily as Bran ch mg/5 mL needed for syrup Congestion /Allergies or Cough for up to 10 days. butalbital- Yes [id number] 1{capsu Take 1 Univers aspirin-caf 6-29 le} capsule by it y of feine 00:00: mouth [place] 50-325-40 00 every 6 Medical mg per (six) Branch capsule hours as needed for Pain (Migraine MORGAN). amoxicillin Yes [id number] 1{tbl} Take 1 Univers -clavulanat 6-29 tablet by ity of e 00:00: mouth 2 [place] (AUGMENTIN) 00 (two) Medical 875-125 mg times Branch per tablet daily. nicotine 14 Yes [id number] 1{patch Apply 1 Univers mg/24 hr 6-29 } Patch to ity of patch 00:00: area(s) [place] 00 every 24 Medical (twenty-fo Branch ur) hours. Apply 21mg patch daily x 6 weeks; then apply 14mf patch daily x 2 weeks; then apply 7mg patch daily x 2 weeks. Stop smoking on initiation of therapy nicotine Yes [id number] 1{patch Apply 1 Univers mg/24 hr 6-29 } Patch to ity of patch 00:00: area(s) [place] 00 daily. Medical Apply 21mg Branch patch daily x 6 weeks; then apply 14mf patch daily x 2 weeks; then apply 7mg patch daily x 2 weeks. Stop smoking on initiation of therapy nicotine 7 Yes [id number] 1{patch Apply 1 Univers mg/24 hr 6-29 } Patch to ity of patch 00:00: area(s) [place] 00 every 24 Medical (twenty-fo Branch ur) hours. Apply 21mg patch daily x 6 weeks; then apply 14mf patch daily x 2 weeks; then apply 7mg patch daily x 2 weeks. Stop smoking on initiation of therapy fluticasone Yes [id number] 1{spray Use 1 Univers propionate 6-29 } Serafina in ity o f 50 00:00: each [place] mcg/actuati 00 nostril Medic al on nasal daily. Branch spray butalbital- Yes [id number] 1{capsu Take 1 Univers aspirin-caf 6-29 le} capsule by it y of feine 00:00: mouth [place] 50-325-40 00 every 6 Medical mg per (six) Branch capsule hours as needed for Pain (Migraine MORGAN). amoxicillin Yes [id number] 1{tbl} Take 1 Univers -clavulanat 6-29 tablet by ity of e 00:00: mouth 2 [place] (AUGMENTIN) 00 (two) Medical 875-125 mg times Branch per tablet daily. nicotine Yes [id number] 1{patch Apply 1 Univers mg/24 hr 6-29 } Patch to ity of patch 00:00: area(s) [place] 00 every 24 Medical (twenty-fo Branch ur) hours. Apply 21mg patch daily x 6 weeks; then apply 14mf patch daily x 2 weeks; then apply 7mg patch daily x 2 weeks. Stop smoking on initiation of therapy nicotine Yes [id number] 1{patch Apply 1 Univers mg/24 hr 6-29 } Patch to ity of patch 00:00: area(s) [place] 00 daily. Medical Apply 21mg Branch patch daily x 6 weeks; then apply 14mf patch daily x 2 weeks; then apply 7mg patch daily x 2 weeks. Stop smoking on initiation of therapy nicotine Yes [id number] 1{patch Apply 1 Univers mg/24 hr 6-29 } Patch to ity of patch 00:00: area(s) [place] 00 every 24 Medical (twenty-fo Branch ur) hours. Apply 21mg patch daily x 6 weeks; then apply 14mf patch daily x 2 weeks; then apply 7mg patch daily x 2 weeks. Stop smoking on initiation of therapy fluticasone Yes [id number] 1{spray Use 1 Univers propionate 6-29 } Serafina in ity o f 50 00:00: each [place] mcg/actuati 00 nostril Medic al on nasal daily. Branch spray butalbital- Yes [id number] 1{capsu Take 1 Univers aspirin-caf 629 le} capsule by it y of feine 00:00: mouth [place] 50-325-40 00 every 6 Medical mg per (six) Branch capsule hours as needed for Pain (Migraine MORGAN). nicotine Yes [id number] 1{patch Apply 1 Univers mg/24 hr 6-29 } Patch to ity of patch 00:00: area(s) [place] 00 every 24 Medical (twenty-fo Branch ur) hours. Apply 21mg patch daily x 6 weeks; then apply 14mf patch daily x 2 weeks; then apply 7mg patch daily x 2 weeks. Stop smoking on initiation of therapy nicotine Yes [id number] 1{patch Apply 1 Univers mg/24 hr 6-29 } Patch to ity of patch 00:00: area(s) [place] 00 daily. Medical Apply 21mg Branch patch daily x 6 weeks; then apply 14mf patch daily x 2 weeks; then apply 7mg patch daily x 2 weeks. Stop smoking on initiation of therapy nicotine 7 Yes [id number] 1{patch Apply 1 Univers mg/24 hr 6-29 } Patch to ity of patch 00:00: area(s) [place] 00 every 24 Medical (twenty-fo Branch ur) hours. Apply 21mg patch daily x 6 weeks; then apply 14mf patch daily x 2 weeks; then apply 7mg patch daily x 2 weeks. Stop smoking on initiation of therapy fluticasone Yes [id number] 1{spray Use 1 Univers propionate 6-29 } Serafina in ity o f 50 00:00: each [place] mcg/actuati 00 nostril Medic al on nasal daily. Branch spray butalbital- Yes [id number] 1{capsu Take 1 Univers aspirin-caf 6-29 le} capsule by it y of feine 00:00: mouth [place] 50-325-40 00 every 6 Medical mg per (six) Branch capsule hours as needed for Pain (Migraine MORGAN). nicotine 14 Yes [id number] 1{patch Apply 1 Univers mg/24 hr 6-29 } Patch to ity of patch 00:00: area(s) [place] 00 every 24 Medical (twenty-fo Branch ur) hours. Apply 21mg patch daily x 6 weeks; then apply 14mf patch daily x 2 weeks; then apply 7mg patch daily x 2 weeks. Stop smoking on initiation of therapy nicotine 21 Yes [id number] 1{patch Apply 1 Univers mg/24 hr 6-29 } Patch to ity of patch 00:00: area(s) [place] 00 daily. Medical Apply 21mg Branch patch daily x 6 weeks; then apply 14mf patch daily x 2 weeks; then apply 7mg patch daily x 2 weeks. Stop smoking on initiation of therapy nicotine 7 Yes [id number] 1{patch Apply 1 Univers mg/24 hr 6-29 } Patch to ity of patch 00:00: area(s) [place] 00 every 24 Medical (twenty-fo Branch ur) hours. Apply 21mg patch daily x 6 weeks; then apply 14mf patch daily x 2 weeks; then apply 7mg patch daily x 2 weeks. Stop smoking on initiation of therapy fluticasone Yes [id number] 1{spray Use 1 Univers propionate 6-29 } Serafina in ity o f 50 00:00: each [place] mcg/actuati 00 nostril Medic al on nasal daily. Branch spray butalbital- Yes [id number] 1{capsu Take 1 Univers aspirin-caf 6-29 le} capsule by it y of feine 00:00: mouth [place] 50-325-40 00 every 6 Medical mg per (six) Branch capsule hours as needed for Pain (Migraine MORGAN). amoxicillin Yes [id number] 1{tbl} Take 1 Univers -clavulanat 6-29 tablet by ity of e 00:00: mouth 2 [place] (AUGMENTIN) 00 (two) Medical 875-125 mg times Branch per tablet daily. nicotine Yes [id number] 1{patch Apply 1 Univers mg/24 hr 6-29 } Patch to ity of patch 00:00: area(s) [place] 00 every 24 Medical (twenty-fo Branch ur) hours. Apply 21mg patch daily x 6 weeks; then apply 14mf patch daily x 2 weeks; then apply 7mg patch daily x 2 weeks. Stop smoking on initiation of therapy nicotine Yes [id number] 1{patch Apply 1 Univers mg/24 hr 6-29 } Patch to ity of patch 00:00: area(s) [place] 00 daily. Medical Apply 21mg Branch patch daily x 6 weeks; then apply 14mf patch daily x 2 weeks; then apply 7mg patch daily x 2 weeks. Stop smoking on initiation of therapy nicotine 7 Yes [id number] 1{patch Apply 1 Univers mg/24 hr 6-29 } Patch to ity of patch 00:00: area(s) [place] 00 every 24 Medical (twenty-fo Branch ur) hours. Apply 21mg patch daily x 6 weeks; then apply 14mf patch daily x 2 weeks; then apply 7mg patch daily x 2 weeks. Stop smoking on initiation of therapy fluticasone Yes [id number] 1{spray Use 1 Univers propionate 6-29 } Serafina in ity o f 50 00:00: each [place] mcg/actuati 00 nostril Medic al on nasal daily. Branch spray butalbital- Yes [id number] 1{capsu Take 1 Univers aspirin-caf 6-29 le} capsule by it y of feine 00:00: mouth [place] 50-325-40 00 every 6 Medical mg per (six) Branch capsule hours as needed for Pain (Migraine MORGAN). amoxicillin Yes [id number] 1{tbl} Take 1 Univers -clavulanat 6-29 tablet by ity of e 00:00: mouth 2 [place] (AUGMENTIN) 00 (two) Medical 875-125 mg times Branch per tablet daily. nicotine 14 Yes [id number] 1{patch Apply 1 Univers mg/24 hr 6-29 } Patch to ity of patch 00:00: area(s) [place] 00 every 24 Medical (twenty-fo Branch ur) hours. Apply 21mg patch daily x 6 weeks; then apply 14mf patch daily x 2 weeks; then apply 7mg patch daily x 2 weeks. Stop smoking on initiation of therapy nicotine 21 Yes [id number] 1{patch Apply 1 Univers mg/24 hr 6-29 } Patch to ity of patch 00:00: area(s) [place] 00 daily. Medical Apply 21mg Branch patch daily x 6 weeks; then apply 14mf patch daily x 2 weeks; then apply 7mg patch daily x 2 weeks. Stop smoking on initiation of therapy nicotine 7 Yes [id number] 1{patch Apply 1 Univers mg/24 hr 6-29 } Patch to ity of patch 00:00: area(s) [place] 00 every 24 Medical (twenty-fo Branch ur) hours. Apply 21mg patch daily x 6 weeks; then apply 14mf patch daily x 2 weeks; then apply 7mg patch daily x 2 weeks. Stop smoking on initiation of therapy fluticasone Yes [id number] 1{spray Use 1 Univers propionate 6-29 } Serafina in ity o f 50 00:00: each [place] mcg/actuati 00 nostril Medic al on nasal daily. Branch spray amoxicillin 2022- No [id number] 1{tbl} Take 1 Univers -clavulanat 6-29 02-06 tablet by it y of e 00:00: 00:00 mouth 2 [place] (AUGMENTIN) 00 :00 (two) Medical 875-125 mg times Branch per tablet daily. Immunizations Ordered Filled Immunization Date Status Comments Sour e Immunization Name Name TD Pres-Free 2022-06-15 Completed University o f 00:00:00 [facility] Vital Signs Vital Name Observation Time Observation Value Comments Source Systolic blood 2022-06-15 23:02:35 124 mm[Hg] Univer sity of pressure [facility] Diastolic blood 2022-06-15 23:02:35 81 mm[Hg] Unive rsity of pressure [facility] Heart rate 2022-06-15 23:02:35 97 /min Universi ty of [facility] Body temperature 2022-06-15 23:02:35 37.22 Qi Univ [address]ity of [facility] Respiratory rate 2022-06-15 23:02:35 16 /min Univ ersity of [facility] Oxygen saturation in 2022-06-15 23:02:35 98 /min [facility] Arterial blood by [facility] Pulse oximetry Branch Body height 2022-06-15 22:47:00 165.1 cm Universi ty of [place] [facility] [place] Body weight 2022-06-15 22:47:00 92.987 kg Universi ty of [place] [facility] BMI 2022-06-15 22:47:00 34.11 kg/m2 Universi ty of [facility] [place] Branch Systolic blood 2022-05-28 00:34:00 147 mm[Hg] Univer sity of pressure [facility] Diastolic blood 2022-05-28 00:34:00 87 mm[Hg] Unive rsity of pressure [facility] Heart rate 2022-05-28 00:34:00 107 /min Universi ty of [place] [facility] [place] Body temperature 2022-05-28 00:34:00 37.11 Qi Univ ersity of [facility] [place] Branch Respiratory rate 2022-05-28 00:34:00 20 /min Univ ersity of [facility] [place] Branch Body height 2022-05-28 00:34:00 152.4 cm Universi ty of [place] [facility] [place] Body weight 2022-05-28 00:34:00 83.915 kg Universi ty of [place] [facility] [place] BMI 2022-05-28 00:34:00 36.13 kg/m2 Universi ty of [place] [facility] Oxygen saturation in 2022-05-28 00:34:00 99 /min University of Arterial blood by [facility] [place] [facility] Pulse oximetry Branch Systolic blood 2021-10-04 17:39:00 120 mm[Hg] Univer sity of pressure [place] [facility] Diastolic blood 2021-10-04 17:39:00 80 mm[Hg] Unive rsity of pressure [place] [facility] Heart rate 2021-10-04 17:39:00 73 /min Universi ty of [place] [facility] Respiratory rate 2021-10-04 17:39:00 18 /min Univ ersity of [place] [facility] Oxygen saturation in 2021-10-04 17:39:00 97 /min University of Arterial blood by [facility] Pulse oximetry Branch Body temperature 2021-10-04 15:46:00 37.5 Qi Univ ersity of [place] [facility] Body height 2021-10-04 15:46:00 152.4 cm Universi ty of [place] [facility] Body weight 2021-10-04 15:46:00 81.647 kg Universi ty of [place] [facility] BMI 2021-10-04 15:46:00 35.15 kg/m2 Universi ty of [place] [facility] Body height 2021-02-16 02:18:00 152.4 cm Universi ty of [place] [facility] Body weight 2021-02-16 02:18:00 90.266 kg Universi ty of [place] [facility] BMI 2021-02-16 02:18:00 38.86 kg/m2 Universi ty of [place] [facility] Oxygen saturation in 2021-02-16 02:18:00 99 /min University of Arterial blood by [facility] Pulse oximetry Branch Systolic blood 2021-02-16 02:18:00 131 mm[Hg] Univer sity of pressure [place] [facility] Diastolic blood 2021-02-16 02:18:00 81 mm[Hg] Unive rsity of pressure [place] [facility] Heart rate 2021-02-16 02:18:00 99 /min Universi ty of [place] [facility] Body temperature 2021-02-16 02:18:00 37.22 Qi Univ ersity of [place] [facility] Respiratory rate 2021-02-16 02:18:00 18 /min Univ ersity of [place] [facility] Systolic blood 2021-02-13 14:34:00 125 mm[Hg] Univer sity of pressure [place] [facility] Diastolic blood 2021-02-13 14:34:00 74 mm[Hg] Unive rsity of pressure [place] [facility] Heart rate 2021-02-13 14:34:00 103 /min [facility] Medical Branch Body temperature 2021-02-13 14:34:00 37.56 Qi [facility] [place] [facility] Respiratory rate 2021-02-13 14:34:00 18 /min [facility] [place] [facility] Body height 2021-02-13 14:34:00 152.4 cm [facility] Medical Branch Body weight 2021-02-13 14:34:00 90.674 kg [facility] Medical Branch BMI 2021-02-13 14:34:00 39.04 kg/m2 [facility] Medical [place] Oxygen saturation in 2021-02-13 14:34:00 98 /min [facility] Arterial blood by [facility] Pulse oximetry Branch Procedures Procedure Date / Time Performed Performing Clinician Opal sony ED LACERATION REPAIR 2022-06-15 23:53:19 Nicci Pickett [facility]y of [place] [facility] CONSENT/REFUSAL FOR 2022-06-15 22:43:25 Doctor Unassigned, No Un iversity of [place] DIAGNOSIS AND Name Medical Branch TREATMENT CONSENT/REFUSAL FOR 2022-05-28 00:31:56 Doctor Unassigned, No Un iversity of [place] DIAGNOSIS AND Name Medical Branch TREATMENT NOTICE OF PRIVACY 2021-10-04 15:41:13 Doctor Unassigned, No [facility] Medical Branch CONSENT/REFUSAL FOR 2021-10-04 15:40:49 Doctor Unassigned, No Un iversity of [place] DIAGNOSIS AND Name Medical Branch TREATMENT CONSENT/REFUSAL FOR 2021-02-16 02:11:53 Doctor Unassigned, No Un iversity of [place] DIAGNOSIS AND Name Medical Branch TREATMENT POCT GRP A STREP 2021-02-13 15:09:00 Koko Killian [facility] y [facility] (MOLECULAR) Medical Branch Encounters Start End Encounter Admission Attending Care Care Encounter Source Date/Time Date/Time Type Type Clinicians Facility Department ID 2021-02-18 Emergency [facility] [id number] Univers 09:18:43 ity of [place] [facility] 2022-06-15 2022-06-15 Emergency [facility] [id number] Univers 16:49:00 18:00:00 NICCI oakley [facility] 2022-06-15 2022-06-15 [facility] [id number] Univers 16:49:00 18:00:00 Nicci SINGH [id number] i ty of [facility] [id number] [facility] [id number] [address] 2022-05-27 2022-05-27 Emergency [facility] [id number] Univers 18:36:00 19:27:00 NICCI oakley [facility] 2022-05-27 2022-05-27 [facility] [id number] Univers 18:36:00 19:27:00 Nicci NEGROYOLIS [id number] i ty of [facility] [id number] [facility] [id number] [address] 2021-10-04 2021-10-04 Emergency [facility] [id number] Univers 10:50:00 12:40:00 MYA oakley [facility] 2021-10-04 2021-10-04 [facility] [id number] Univers 10:50:00 12:40:00 Mya SINGH [id number] ity of [place] [id number] [facility] [id number] [address] 2021-03-08 2021-03-08 AMBERLY Brito [id number] Univers 00:00:00 00:00:00 Management Melony ALEXANDRA [id number] ity of [place] [id number] [facility] [place] [facility] [id number] [address] 2021-02-15 2021-02-15 Emergency [facility] [id number] Univers 21:20:00 21:42:00 NICCI oakley [facility] 2021-02-152021-02-15 Emergency Charlette [facility] [id number] Univers 21:20:00 21:42:00 Nicci SINGH [id number] i ty of [facility] [id number] [place] [id number] [address] 2021-02-13 2021-02-13 Outpatient Nancy BUSTILLOS [facility] [id number] Univers 10:00:00 10:00:00 [facility] 2021-02-13 2021-02-13 Urgent Provider, [facility] [id number] Univers 09:26:05 09:46:05 [facility] [id number] ity [facility] [id number] [place] [id number] [address] Medical Office Building 2020-10-17 2020-10-17 Outpatient Nancy BUSTILLOS [facility] [id number] Univers 19:45:00 19:45:00 [facility] 2019-06-14 2019-06-14 Emergency X MARINA [facility] ERT [id number] Univers 05:27:00 06:16:00 EDI [facility] Results Test Description Test Time Test Comments Results Result Comments Source POCT GRP A STREP (MOLECULAR) 2021-02-13 15:09:00 Test Item Value Reference Range Interpretation Comme nts POCT GP A STREP (test code = 14934-8) Negative Negative - Negat [facility] Lab Interpretation (test code = 33603-7) Normal [facility]
[2022-07-11] MEDS ORDERED: NA CHLORIDE 0.9% 1,000 ML ONE (12:39)
[2022-07-11] MEDS ORDERED: ONDANSETRON 4 MG/2 ML VIAL ONE (12:39)
[2022-07-11 13:05] LABS: Absolute Lymphocytes (CBC) 2.8 K/uL (0.7-4.9); Hematocrit 42.7 % (36.0-45.0); Lymphocytes % 16.5 % (15.3-44.8); MCV 82.1 fL (80-100); MPV 8.5 fL (7.6-11.3)
[2022-07-11 13:06] LABS: Specific Gravity 1.021 (1.005-1.030)
[2022-07-11 13:17] LABS: Albumin 3.5 g/dL (3.4-5.0); Bilirubin Total 0.2 mg/dL (0.2-1.0); Protein, Total 7.5 g/dL (6.4-8.2)
--- NOTE | 2022-07-11 13:27 | EDPHYS ---
Physician Documentation [facility] Name: Anna Pizarro Age: 32 yrs Sex: Female : 1990 Arrival Date: 07/11/2022 Time: 12:09 Bed 19 Private MD: ED Physician Ramez Ho HPI: 07/11 12:26 This 32 yrs old Female presents to ER via Ambulatory with complaints of Nausea/Vomiting jr11 - post procedure. 12:26 The patient presents to the emergency department with nausea, that is moderate, jr11 vomiting, that is intermittent. Onset: The symptoms/episode began/occurred today. Possible causes: antibiotics, doxy and bactrim . Associated signs and symptoms: The patient has no apparent associated signs or symptoms. No abdominal pain . 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 jr11 Exam: 12:26 Constitutional: This is a well developed, well nourished patient who is awake, alert, jr11 and in no acute distress. Head/Face: Normocephalic, atraumatic. Eyes: Extra-ocular motions intact. Lids and lashes normal. Conjunctiva and sclera are non-icteric and not injected. Cornea within normal limits. Periorbital areas with no swelling, redness, or edema. ENT: Nares patent. No nasal discharge, no septal abnormalities noted. Oropharynx with no redness, swelling, or masses, exudates, or evidence of obstruction, uvula midline. Mucous membranes moist. Neck: Trachea midline, no thyromegaly or masses palpated, and no cervical lymphadenopathy. Supple, full range of motion without nuchal rigidity, or vertebral point tenderness. No Meningismus. Chest/axilla: Normal chest wall appearance and motion. Nontender with no deformity. No lesions are appreciated. Cardiovascular: Regular rate and rhythm with a normal S1 and S2. No gallops, murmurs, or rubs. Normal PMI, no JVD. No pulse deficits. Respiratory: Lungs have equal breath sounds bilaterally, clear to auscultation and percussion. No rales, rhonchi or wheezes noted. No increased work of breathing, no retractions or nasal flaring. Abdomen/GI: Soft, non-tender, with normal bowel sounds. No distension or tympany. No guarding or rebound. No evidence of tenderness throughout. Back: No spinal tenderness. No costovertebral tenderness. Full range of motion. Skin: R axilla, no significant cellullitis or re acumulation Vital Signs: 12:22 BP 118 / 90; Pulse 89; Resp 16 S; Temp 97.5(TE); Pulse Ox 99% on R/A; Weight 97.52 kg aa5 (R); Height 5 ft. 0 in. ; 12:22 Body Mass Index 41.99 (97.52 kg, 152.4 cm) aa5 MDM: 12:25 Patient medically screened. jr11 12:26 Differential diagnosis: Nonspecific abd pain, gastritis, medication related. Data jr11 reviewed: vital signs, nurses notes. ED course: Patient is a 32-year-old with nausea vomiting after getting abscess lanced, she is on Bactrim and Doxy, felt nauseous after taking medication on an empty stomach. Patient likely with medication induced nausea likely secondary to the doxycycline. Will advise not to take it with milk but she may take it with food like bread. Patient voices understanding, given that she is scared, will check some routine lab work, if all negative, will write her for Zofran and advised her to eat prior to antibiotic intake.. 13:26 ED course: Patient feeling better, nausea resolved, will prescribe some Zofran, patient jr11 with leukocytosis but can be secondary to the vomiting also to volume depletion. Patient does not meet sepsis SIRS criteria.. 07/11 12: Order name: CBC with Diff; Complete Time: 13:13 11 07/11 12: Order name: CMP; Complete Time: 13:18 11 07/11 12: Order name: Test, Urine; Complete Time: 13:18 [facility] 07/11 12: Order name: IV Saline Lock; Complete Time: 12:45 [facility] 07/11 12: Order name: Labs collected and sent; Complete Time: 12:45 [facility] Administered Medications: 12:45 Drug: NS 0.9% IV 1000 ml Route: IV; Rate: 1 bolus; Site: left antecubital; kc6 13:45 Follow up: Response: No adverse reaction; IV Status: Completed infusion; IV Intake: kc6 1000ml 12:46 Drug: Ondansetron IVP 4 mg Route: IVP; Site: left antecubital; kc6 13:45 Follow up: Response: No adverse reaction; Nausea is decreased kc6 Disposition Summary: 07/11/22 13:26 Discharge Ordered Location: Home [facility] Condition: Stable jr11 Diagnosis - Nausea with vomiting, unspecified jr11 Discharge Instructions: - Discharge Summary Sheet jr11 - Nausea and Vomiting, Adult [facility] Forms: - Medication Reconciliation Form jr11 - Thank You Letter jr11 - Antibiotic Education jr11 - Prescription Opioid Use jr11 Prescriptions: - Zofran 4 mg Oral Tablet - take 1 tablet by ORAL route every 12 hours As needed; 20 tablet; Refills: 0, jr11 Product Selection Permitted Signatures: Dispatcher [employer] Claire Barclay, RN RN aa5 Ramez Ho MD MD jr11 Isela Casillas RN RN kc6
--- NOTE | 2022-07-11 13:27 | ER ---
Nurse's Notes [facility] Name: Anna Pizarro Age: 32 yrs Sex: Female : 1990 Arrival Date: 07/11/2022 Time: 12:09 Bed 19 Private MD: Diagnosis: Nausea with vomiting, unspecified Presentation: 07/11 12:22 Chief complaint: Patient states: had I\\T\\D on 07/09/22 and today she vomited once, pt aa5 states "I don't feel well". 12:22 Coronavirus screen: vomiting. Ebola Screen: Patient denies travel to an Ebola-affected [facility] area in the 21 days before illness onset. Initial Sepsis Screen: Does the patient meet any 2 criteria? No. Patient's initial sepsis screen is negative. Does the patient have a suspected source of infection? No. Patient's initial sepsis screen is negative. Risk Assessment: Do you want to hurt yourself or someone else? Patient reports no desire to harm self or others. Onset of symptoms was July 11, 2022. 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 ED Fall Risk Assessment (Adult) History of falling in the last 3 months, kc6 including since admission No falls in past 3 months (0 pts) Confusion or Disorientation No (0 pts) Intoxicated or Sedated No (0 pts) Impaired Gait No (0 pts) Mobility Assist Device Used No (0 pt) Altered Elimination No (0 pt) Score/Fall Risk Level 0 - 2 = Low Risk Oriented to surroundings, Maintained a safe environment, Educated pt \\T\\ family on fall prevention, incl call for assistance when getting out of bed, Assessed \\T\\ reinforced patient's understanding of fall precautions, Hourly rounding (assess needs \\T\\ fall precautionary measures) done. Abuse screen: Denies threats or abuse. Denies injuries from another. Nutritional screening: No deficits noted. Tuberculosis screening: No symptoms or risk factors identified. Assessment: 12:45 General: Appears in no apparent distress. uncomfortable, ill, Behavior is calm, kc6 cooperative, appropriate for age. Pain: Denies pain. Neuro: Skinner Agitation-Sedation Scale (RASS): 0 - Alert and Calm Level of Consciousness is awake, alert, obeys commands, Oriented to person, place, time, situation, Appropriate for age. Cardiovascular: Capillary refill < 3 seconds. Respiratory: Airway is patent Trachea midline Respiratory effort is even, unlabored, Respiratory pattern is regular, symmetrical. GI: Abdomen is flat, non-distended, Bowel sounds present X 4 quads. Abd is soft and non tender X 4 quads. Reports nausea, vomiting, Patient currently denies diarrhea. : No signs and/or symptoms were reported regarding the genitourinary system. EENT: No signs and/or symptoms were reported regarding the EENT system. Derm: Skin is pink, warm \\T\\ dry. Wound noted right armpit. Musculoskeletal: No signs and/or symptoms reported regarding the musculoskeletal system. Circulation, motion, and sensation intact. Capillary refill < 3 seconds, Range of motion: intact in all extremities. Vital Signs: 12:22 BP 118 / 90; Pulse 89; Resp 16 S; Temp 97.5(TE); Pulse Ox 99% on R/A; Weight 97.52 kg aa5 (R); Height 5 ft. 0 in. ; 12:22 Body Mass Index 41.99 (97.52 kg, 152.4 cm) aa5 ED Course: 12:09 Patient arrived in ED. am2 12:10 Ramez Ho MD is Attending Physician. jr11 12:22 Arm band placed on. aa5 12:22 Patient has correct armband on for positive identification. Bed in low position. Call kc6 light in reach. Side rails up X2. Adult w/ patient. 12:26 Triage completed. aa5 12:33 Isela Casillas, RN is Primary Nurse. kc6 12:43 Test, Urine Sent. kc6 13:48 No provider procedures requiring assistance completed. IV discontinued, intact, kc6 bleeding controlled, No redness/swelling at site. Pressure dressing applied. Administered Medications: 12:45 Drug: NS 0.9% IV 1000 ml Route: IV; Rate: 1 bolus; Site: left antecubital; kc6 13:45 Follow up: Response: No adverse reaction; IV Status: Completed infusion; IV Intake: kc6 1000ml 12:46 Drug: Ondansetron IVP 4 mg Route: IVP; Site: left antecubital; kc6 13:45 Follow up: Response: No adverse reaction; Nausea is decreased kc6 Medication: 13:49 VIS not applicable for this client. kc6 Intake: 13:45 IV: 1000ml; Total: 1000ml. kc6 Outcome: 13:26 Discharge ordered by . 11 13:49 Discharged to home ambulatory, with significant other. kc6 13:49 Condition: stable 13:49 Discharge instructions given to patient, Instructed on discharge instructions, follow up and referral plans. medication usage, Demonstrated understanding of instructions, follow-up care, medications, Prescriptions given X 1. 13:49 Patient left the ED. kc6 Signatures: Claire Butcher, RN RN aa5 Natasha Putnam Jose, MD MD jr11 Isela Casillas RN RN kc6
[2022-07-11 16:43] VITALS: BP 118/90; TEMP 97.5; O2SAT 99
== END 2022-07-11 13:49 | disposition home or self-care (01) ==
LOC: ER 12:08
DX: R11.2 Nausea with vomiting, unspecified (principal); E28.2 Polycystic ovarian syndrome; G43.909 Migraine, unspecified, not intractable, without status migrainosus; Z88.6 Allergy status to analgesic agent
CPT/HCPCS: 36415; 80053; 81025; 85025; J2405; J7030

== ENCOUNTER 2022-09-28 15:01 | Emergency (ER) | payer SELFPAY ==
--- NOTE | 2022-09-28 16:08 | RAD REPORT ---
EXAM DESCRIPTION: US - Extremity Nonvascular Complete - 09/28/2022 3:52 pm CLINICAL HISTORY: r/o abscess COMPARISON: Ultrasound 07/04/2022 FINDINGS: Focused ultrasound in the right axilla. Fluid collection identifying 1.7 x 0.9 cm identif ied. This is at the area of concern. IMPRESSION: Small right axillary fluid collection which is decreased in size since 07/04/2022 and ma y represent a recurring abscess given the clinical concern. Recommend clinical follow-up.
--- NOTE | 2022-09-28 16:30 | EDPHYS ---
Physician Documentation [facility] Name: Anna Pizarro Age: 32 yrs Sex: Female : 1990 Arrival Date: 09/28/2022 Time: 15:01 Bed 20 Private MD: ED Physician Jimmy Duque HPI: 09/28 16:27 This 32 yrs old Female presents to ER via Ambulatory with complaints of Arm Problem. kb 16:27 The patient presents with an abscess of the right axilla. Description: erythematous. kb The patient has not recently seen a physician. 16:27 Onset: The symptoms/episode began/occurred yesterday. Possible cause(s): unknown. kb Associated signs and symptoms: Pertinent positives: erythema, Pertinent negatives: discharge, drainage. Modifying factors: the symptoms are alleviated by nothing, the symptoms are aggravated by pressure, squeezing the lesion and expressing the contents, touching. Severity of symptoms: At their worst the symptoms were moderate, in the emergency department the symptoms are unchanged. The patient has not experienced similar symptoms in the past. 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 - Social history:: Smoking status: Patient denies any tobacco usage or history of. ROS: 16:26 Constitutional: Negative for fever, chills, and weight loss. kb 16:26 Skin: Positive for abscess, of the right axilla. 16:26 All other systems are negative. Exam: 16:26 Constitutional: This is a well developed, well nourished patient who is awake, alert, kb and in no acute distress. Head/Face: Normocephalic, atraumatic. ENT: Moist Mucous membranes Cardiovascular: Regular rate and rhythm with a normal S1 and S2. No gallops, murmurs, or rubs. No pulse deficits. Respiratory: Respirations even and unlabored. No increased work of breathing. Talking in full sentences Abdomen/GI: Soft, non-tender. No distention MS/ Extremity: Pulses equal, no cyanosis. Neurovascular intact. Full, normal range of motion. Neuro: Awake and alert, GCS 15, oriented to person, place, time, and situation. Moves all extremities. Normal gait. 16:26 Skin: abscess, that is small, of the right axilla, with induration. Vital Signs: 15:24 BP 118 / 82; Pulse 99; Resp 16; Temp 98.1; Pulse Ox 99% ; Weight 90.72 kg; Height 5 ft. bp 0 in. ; 15:24 Body Mass Index 39.06 (90.72 kg, 152.4 cm) bp Procedures: 18:37 I \T\ D: Incision and drainage was performed for an abscess of the right axilla. Prepped kb with Betadine, Anesthetized with 2 ml's 1% Lidocaine. Incised with #11 blade. Drained small amount purulent fluid. Packed with pt refused packing. Dressing: sterile 4x4 gauze, the patient tolerated the procedure well. MDM: 15:23 Patient medically screened. kb 16:26 Data reviewed: vital signs, nurses notes. kb 16:27 Differential diagnosis: abscess, allergic reaction, cellulitis, insect bite. kb Counseling: I had a detailed discussion with the patient and/or guardian regarding: the historical points, exam findings, and any diagnostic results supporting the discharge/admit diagnosis, the need for outpatient follow up, a general surgeon, to return to the emergency department if symptoms worsen or persist or if there are any questions or concerns that arise at home. 09/28 15:53 Order name: Extremity Nonvascular Complete; Complete Time: 16:11 [facility] 09/28 16:36 Order name: I\T\D Setup; Complete Time: 17:46 kb Administered Medications: 17:48 Drug: LORazepam PO 0.5 mg Route: PO; [facility] 19:00 Follow up: Response: No adverse reaction [facility] 17:48 Drug: Trimethoprim-Sulfamethoxazole PO (160 mg-800 mg (DS) 1 tablet Route: PO; 3 19:00 Follow up: Response: No adverse reaction [facility] 18:30 Drug: Lidocaine Infiltration (1 %) 1 vials {Note: administered by Dai Peoples 3 AVIATION TECHNICIAN AIRCRAFT-C.} Volume: 5 ml; Route: Infiltration; 19:01 Follow up: Response: No adverse reaction [facility] Disposition: 09/29 09:33 Co-signature as Attending Physician, Jimmy Duque MD I reviewed the patient's care rn provided by the Advanced Practice Provider and agree with the diagnosis and treatment plan. Disposition Summary: 09/28/22 18:38 Discharge Ordered Location: Home(09/28/22 18:38) kb Condition: Stable(09/28/22 18:38) kb Diagnosis - Cutaneous abscess of right axilla(09/28/22 18:38) kb Followup: kb - With: Emergency Department - When: As needed - Reason: Worsening of condition Followup: kb - With: Private Physician - When: 2 - 3 days - Reason: Recheck today's complaints, Continuance of care, Re-evaluation by your physician Discharge Instructions: - Skin Abscess, [id number] kb - Incision and Drainage, Care After kb - Discharge Summary Sheet eb Forms: - Medication Reconciliation Form kb - Thank You Letter kb - Antibiotic Education kb - Prescription Opioid Use kb - Work release form eb Prescriptions: - Doxycycline Hyclate 100 mg Oral Tablet - take 1 tablet by ORAL route every 12 hours; 20 tablet; Refills: 0, Product kb Selection Permitted - Bactrim DS 800-160 mg Oral Tablet - take 1 tablet by ORAL route every 12 hours for 10 days; 20 tablet; Refills: 0, kb Product Selection Permitted Signatures: Dispatcher [employer] EDDai Mercado, AVIATION TECHNICIAN AIRCRAFT-C AVIATION TECHNICIAN AIRCRAFT-Ckb Jimmy Duque MD MD rn Peltier, Brian, RN Romi Rowe RN RN 3 Corrections: (The following items were deleted from the chart) 09/28 15:53 15:27 Extrmty Nonvasular Limited+[id number].[id number] ordered. EDMS EDMS 16:35 16:30 Home kb kb 16:35 16:30 Stable kb kb 16:35 16:30 Cutaneous abscess of right axilla kb kb 18:38 16:27 ED course: No swelling or fluctuant area appreciated. Pt educated to take all kb antibiotics and follow up with general surgery for recurrent abscess. . kb
--- NOTE | 2022-09-28 16:30 | ER ---
Nurse's Notes [facility] Name: Anna Pizarro Age: 32 yrs Sex: Female : 1990 Arrival Date: 09/28/2022 Time: 15:01 Bed 20 Private MD: Diagnosis: Cutaneous abscess of right axilla Presentation: 09/28 15:24 Chief complaint: Patient states: RECURRENT R AXILLARY ABSCESS. Coronavirus screen: At bp this time, the client does not indicate any symptoms associated with coronavirus-19. Ebola Screen: No symptoms or risks identified at this time. Initial Sepsis Screen: Does the patient meet any 2 criteria? No. Patient's initial sepsis screen is negative. Does the patient have a suspected source of infection? No. Patient's initial sepsis screen is negative. Risk Assessment: Do you want to hurt yourself or someone else? Patient reports no desire to harm self or others. Onset of symptoms is unknown. 15:24 Method Of Arrival: Ambulatory bp 15:24 Acuity: EDWIN 3 bp Triage Assessment: 15:25 General: Appears uncomfortable, obese, Behavior is cooperative, appropriate for age. bp Pain: Complains of pain in right axilla. EENT: No deficits noted. Neuro: No deficits noted. Cardiovascular: No deficits noted. Respiratory: No deficits noted. GI: No signs and/or symptoms were reported involving the gastrointestinal system. : No signs and/or symptoms were reported regarding the genitourinary system. Derm: Abscess located on right axilla. Musculoskeletal: No deficits noted. 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 - Social history:: Smoking status: Patient denies any tobacco usage or history of. Screenin:15 [facility] ED Fall Risk Assessment (Adult) Score/Fall Risk Level 0 - 2 = Low Risk. Abuse eh3 screen: Denies threats or abuse. Denies injuries from another. Nutritional screening: No deficits noted. On. Tuberculosis screening: No symptoms or risk factors identified. Assessment: 17:15 General: Appears in no apparent distress. uncomfortable, Behavior is calm, cooperative, eh3 appropriate for age. Pain: Complains of pain in right axilla. Neuro: Level of Consciousness is awake, alert, obeys commands, Oriented to person, place, time, situation. Cardiovascular: Capillary refill < 3 seconds Patient's skin is warm and dry. Respiratory: Airway is patent Respiratory effort is even, unlabored. Vital Signs: 15:24 BP 118 / 82; Pulse 99; Resp 16; Temp 98.1; Pulse Ox 99% ; Weight 90.72 kg; Height 5 ft. bp 0 in. ; 15:24 Body Mass Index 39.06 (90.72 kg, 152.4 cm) bp ED Course: 15:02 Patient arrived in ED. ts1 15:19 Dai Peoples FNP-C is [facility]. kb 15:19 Jimmy Duque MD is Attending Physician. kb 15:25 Triage completed. bp 15:27 Arm band placed on. bp 15:53 Extremity Nonvascular Complete In Process Unspecified. EDMS 17:15 Romi Lopez, RN is Primary Nurse. eh3 17:15 Patient has correct armband on for positive identification. Bed in low position. Call eh3 light in reach. 19:02 No provider procedures requiring assistance completed. Patient did not have IV access eh3 during this emergency room visit. Administered Medications: 17:48 Drug: LORazepam PO 0.5 mg Route: PO; eh3 19:00 Follow up: Response: No adverse reaction 3 17:48 Drug: Trimethoprim-Sulfamethoxazole PO (160 mg-800 mg (DS) 1 tablet Route: PO; eh3 19:00 Follow up: Response: No adverse reaction eh3 18:30 Drug: Lidocaine Infiltration (1 %) 1 vials {Note: administered by quin Manley.} Volume: 5 ml; Route: Infiltration; 19:01 Follow up: Response: No adverse reaction 3 Medication: 19:02 VIS not applicable for this client. eh3 Outcome: 16:30 Discharge ordered by . kb 18:38 Discharge ordered by . kb 19:03 Discharged to home ambulatory, with family. eh3 19:03 Condition: stable 19:03 Discharge instructions given to patient, Instructed on discharge instructions, follow up and referral plans. medication usage, Demonstrated understanding of instructions, follow-up care, medications, Prescriptions given X 2. 19:06 Patient left the ED. eh3 Signatures: Dispatcher [employer] EDDai Mercado, CLAIRE GANNON-Curtis Puga, RN RN bp Romi Lopez RN RN eh3 Danielle Greenberg PAS PAS ts1
[2022-09-28] MEDS ORDERED: LIDOCAINE 1% MPF 5 ML VIAL ONE (17:25)
[2022-09-28 19:24] VITALS: BP 118/82; TEMP 98.1; O2SAT 99
== END 2022-09-28 19:06 | disposition home or self-care (01) ==
LOC: ER 15:01
PROC: 0H9BXZZ Drainage of Right Upper Arm Skin, External Approach (ICD-10-PCS; principal; 2022-09-28)
DX: L02.411 Cutaneous abscess of right axilla (principal)
CPT/HCPCS: 76881; 99283; J2001

== ENCOUNTER 2023-08-14 15:48 | Emergency (ER) | payer SELFPAY ==
--- OUTSIDE RECORDS SUMMARY | 2023-08-14 15:50 | XMS REPORT | Continuity of Care Document ---
Author Name Unknown Address [address] [facility]. [address] [place] [address] [facility] thconnect Address [address] [facility] [place] [address] Care Team Providers Care Jewelry Estimator Name Role Phone PCP, PATIENT DOES NOT HAVE A Primary Care Physic christelle Unavailable LADAN JEFFERY Attending Clinician Unavail able NICCI PICKETT Attending Clinician Unavailable Nicci Desir Attending Clinician [phone] MYA RATLIFF Attending Clinician Unavailab Mya Lewis DO Attending Clinician [phone] Melony Forrest LMSW Attending Clinician UnaMAGALI Alicea Attending Clinician Unavailable Provider, [facility] Attending Clinician Unavailable Magali Cross Attending Clinician [phone] EDI GRAY Attending Clinician Unavailable EDI GRAY Admitting Clinician Unavailable Problems Condition Name Condition Details Condition Category Status Onset Date Resolution Date Last Treatment Date Treating Clinician Comments Source Chronic migraine without aura without status migrainosu s, not intractabl e Chronic migraine without aura without status migrainosu s, not intractabl e Disease Active 10-17 00:00: 00 [facility] Subacute maxillary sinusitis Subacute maxillary sinusitis Disease Active 10-17 00:00: 00 [facility] Dental caries Dental caries Disease Active 10-17 00:00: 00 [facility] Nicotine dependence with current use Nicotine dependence with current use Disease Active 11-06 00:00: 00 Overview: Formattin g of this note might be different from the original. 1 pack per day since 16 years old (10 pack-year as of 11/05) [facility] Nicotine dependence with current use Nicotine dependence with current use Disease Active 11-06 00:00: 00 Overview: Formattin g of this note might be different from the original. 1 pack per day since 16 years old (10 pack-year as of 11/05) [facility] Chronic fatigue Chronic fatigue Disease Active 11-06 00:00: 00 Overview: Formattin g of this note might be different from the original. Will be evaluated by GI in 11/2016 for associate d bowel issues and then hematolog y [facility] Generalize d anxiety disorder Generalize d anxiety disorder Disease Active 09-02 00:00: 00 [facility] Abdominal pain, chronic, left lower quadrant Abdominal pain, chronic, left lower quadrant Disease Active 08-19 00:00: 00 [facility] Leukocytos is Leukocytos is Disease Active 08-19 00:00: 00 [facility] Obesity (BMI 30-39.9) Obesity (BMI 30-39.9) Disease Active 06-27 00:00: 00 [facility] Allergies, Adverse Reactions, Alerts Allergy Name Allergy Type Status Severity Reaction(s) Onset Date Inactive Date Treating Clinician Comments Source Metronid azole Propensi ty to adverse reaction s Active Dizziness 07-08 00:00: 00 [facility] METRONID AZOLE DRUG INGREDI Active Dizziness 07-08 00:00: 00 [facility] Social History Social Habit Start Date Stop Date Quantity Comments Source History of tobacco use Cigarette Smoker [facility] Exposure to SARS-CoV-2 (event) 2022-06-05 00:00:00 2022-06-15 16:45:00 Not sure [facility] Alcohol intake 2022-05-27 00:00:00 2022-05-27 00:00:00 0 /d [facility] Tobacco use and exposure 2016-08-19 00:00:00 2016-08-19 00:00:00 Smokeless tobacco non-user [facility] Sex Ass[birth year] At 1990 00:00:00 1990 00:00:00 [facility] Smoking Status Start Date Stop Date Source Smokes tobacco daily 2016-08-19 00:00:00 [facility] Medications Ordered Medication Name Filled Medication Name Start Date Stop Date Current Medication? Ordering Clinician Indication Dosage Frequency Signature (SIG) Comments Components Source clindamycin 150 mg capsule 05-27 00:00: 00 06-07 05:59 :00 No [id number] 450mg Take 3 capsules by mouth in the morning and 3 capsules at noon and 3 capsules in the evening. Do all this for 10 days. [facility] HYDROcodone -acetaminop hen (NORCO 5) 5-325 mg tablet 1 tablet 10-04 17:00: 00 10-04 15:52 :00 No 1{tbl} 1 tablet, Oral, ONCE, 1 dose, On Fri10/04/21 at 1200, YO [facility] benzonatate 100 mg capsule 2020-04 00:00: 00 Yes [id number] 100mg Take 1 capsule by mouth 3 (three) times daily as needed for Cough. [facility] albuterol 90 mcg/actuati on inhaler 2020-04 00:00: 00 Yes [id number] 2{puff} Inhale 2 Puffs every 4 (four) hours as needed for Wheezing or Shortness of Breath. [facility] bromphenira mine-pseudo ephedrine-D M (BROMFED DM) 2-30-10 mg/5 mL syrup 2020-04 00:00: 00 02-24 04:59 :00 No [id number] 5mL Take 5 mL by mouth 4 (four) times daily as needed for Congestion /Allergies or Cough for up to 10 days. [facility] butalbital- aspirin-caf feine 50-325-40 mg per capsule 10-17 00:00: 00 Yes [id number] 1{capsu le} Take 1 capsule by mouth every 6 (six) hours as needed for Pain (Migraine MORGAN). [facility] nicotine 14 mg/24 hr patch 10-17 00:00: 00 Yes [id number] 1{patch } Apply 1 Patch to area(s) every 24 (twenty-fo ur) hours. Apply 21mg patch daily x 6 weeks; then apply 14mf patch daily x 2 weeks; then apply 7mg patch daily x 2 weeks. Stop smoking on initiation of therapy [facility] nicotine 21 mg/24 hr patch 10-17 00:00: 00 Yes [id number] 1{patch } Apply 1 Patch to area(s) daily. Apply 21mg patch daily x 6 weeks; then apply 14mf patch daily x 2 weeks; then apply 7mg patch daily x 2 weeks. Stop smoking on initiation of therapy [facility] nicotine 7 mg/24 hr patch 10-17 00:00: 00 Yes [id number] 1{patch } Apply 1 Patch to area(s) every 24 (twenty-fo ur) hours. Apply 21mg patch daily x 6 weeks; then apply 14mf patch daily x 2 weeks; then apply 7mg patch daily x 2 weeks. Stop smoking on initiation of therapy [facility] fluticasone propionate 50 mcg/actuati on nasal spray 10-17 00:00: 00 Yes [id number] 1{spray } Use 1 Alleene in each nostril daily. [facility] amoxicillin -clavulanat e (AUGMENTIN) 875-125 mg per tablet 10-17 00:00: 00 05-27 00:00 :00 No [id number] 1{tbl} Take 1 tablet by mouth 2 (two) times daily. [facility] Vital Signs Vital Name Observation Time Observation Value Comments S dorian Systolic blood pressure 2022-06-15 23:02:35 124 mm[Hg] [facility] Diastolic blood pressure 2022-06-15 23:02:35 81 mm[Hg] [facility] Heart rate 2022-06-15 23:02:35 97 /min [facility] Body temperature 2022-06-15 23:02:35 37.22 Qi [facility] Respiratory rate 2022-06-15 23:02:35 16 /min [facility] Oxygen saturation in Arterial blood by Pulse oximetry 2022-06-15 23:02:35 98 /min [facility] Body height 2022-06-15 22:47:00 165.1 cm [facility] Body weight 2022-06-15 22:47:00 92.987 kg [facility] BMI 2022-06-15 22:47:00 34.11 kg/m2 [facility] Systolic blood pressure 2022-05-28 00:34:00 147 mm[Hg] [facility] Diastolic blood pressure 2022-05-28 00:34:00 87 mm[Hg] [facility] Heart rate 2022-05-28 00:34:00 107 /min [facility] Body temperature 2022-05-28 00:34:00 37.11 Qi [facility] Respiratory rate 2022-05-28 00:34:00 20 /min [facility] Body height 2022-05-28 00:34:00 152.4 cm [facility] Body weight 2022-05-28 00:34:00 83.915 kg [facility] BMI 2022-05-28 00:34:00 36.13 kg/m2 [facility] Oxygen saturation in Arterial blood by Pulse oximetry 2022-05-28 00:34:00 99 /min [facility] Systolic blood pressure 2021-10-04 17:39:00 120 mm[Hg] [facility] Diastolic blood pressure 2021-10-04 17:39:00 80 mm[Hg] [facility] Heart rate 2021-10-04 17:39:00 73 /min [facility] Respiratory rate 2021-10-04 17:39:00 18 /min [facility] Oxygen saturation in Arterial blood by Pulse oximetry 2021-10-04 17:39:00 97 /min [facility] Body temperature 2021-10-04 15:46:00 37.5 Qi [facility] Body height 2021-10-04 15:46:00 152.4 cm [facility] Body weight 2021-10-04 15:46:00 81.647 kg [facility] BMI 2021-10-04 15:46:00 35.15 kg/m2 [facility] Body height 2021-02-16 02:18:00 152.4 cm [facility] Body weight 2021-02-16 02:18:00 90.266 kg [facility] BMI 2021-02-16 02:18:00 38.86 kg/m2 [facility] Oxygen saturation in Arterial blood by Pulse oximetry 2021-02-16 02:18:00 99 /min [facility] Systolic blood pressure 2021-02-16 02:18:00 131 mm[Hg] [facility] Diastolic blood pressure 2021-02-16 02:18:00 81 mm[Hg] [facility] Heart rate 2021-02-16 02:18:00 99 /min [facility] Body temperature 2021-02-16 02:18:00 37.22 Qi [facility] Respiratory rate 2021-02-16 02:18:00 18 /min [facility] Systolic blood pressure 2021-02-13 14:34:00 125 mm[Hg] [facility] Diastolic blood pressure 2021-02-13 14:34:00 74 mm[Hg] [facility] Heart rate 2021-02-13 14:34:00 103 /min [facility] Body temperature 2021-02-13 14:34:00 37.56 Qi [facility] Respiratory rate 2021-02-13 14:34:00 18 /min [facility] Body height 2021-02-13 14:34:00 152.4 cm [facility] Body weight 2021-02-13 14:34:00 90.674 kg [facility] BMI 2021-02-13 14:34:00 39.04 kg/m2 [facility] Oxygen saturation in Arterial blood by Pulse oximetry 2021-02-13 14:34:00 98 /min [facility] Procedures Procedure Date / Time Performed Performing Clinicia n Source ED LACERATION REPAIR 2022-06-15 23:53:19 Nicci Pickett [facility] CONSENT/REFUSAL FOR DIAGNOSIS AND TREATMENT 2022-06-15 22:43:25 Doctor Unassigned, Willow [facility] CONSENT/REFUSAL FOR DIAGNOSIS AND TREATMENT 2022-05-28 00:31:56 Doctor Unassigned, Willow [facility] NOTICE OF PRIVACY PRACTICES 2021-10-04 15:41:13 Doctor Unassigned, Willow [facility] CONSENT/REFUSAL FOR DIAGNOSIS AND TREATMENT 2021-10-04 15:40:49 Doctor Unassigned, Willow [facility] CONSENT/REFUSAL FOR DIAGNOSIS AND TREATMENT 2021-02-16 02:11:53 Doctor Unassigned, Willow [facility] POCT GRP A STREP (MOLECULAR) 2021-02-13 15:09:00 Koko Killian [facility] Encounters Start Date/Time End Date/Time Encounter Type Admission Type Attending [facility] Care Facility Care Department Encounter ID Source 2021-02-18 09:18:43 Emergency [facility] [id number] [facility] 2022-07-15 10:09:30 2022-07-15 10:09:30 Outpatient [facility] [id number] Satnam Enrique 2022-07-12 17:41:36 2022-07-12 17:41:36 Outpatient [facility] [id number] Satnam Falcon Klaus 2022-06-15 16:49:00 2022-06-15 18:00:00 Emergency X NICCI PICKETT [facility] E[facility] [id number] [facility] 2022-06-15 16:49:00 2022-06-15 18:00:00 Emergency Nicci Pickett [facility] [id number] [facility] 2022-05-27 18:36:00 2022-05-27 19:27:00 Emergency X NICCI PICKETT [facility] ERT [id number] [facility] 2022-05-27 18:36:00 2022-05-27 19:27:00 Emergency Nicci Pickett [facility] [id number] [facility] 2021-10-04 10:50:00 2021-10-04 12:40:00 Emergency X MYA RATLIFF [facility] ERT [id number] [facility] 2021-10-04 10:50:00 2021-10-04 12:40:00 Emergency Mya Ratliff [facility] [id number] [facility] 2021-03-08 00:00:00 2021-03-08 00:00:00 Case Management Melony Forrest [id number] [facility] 2021-02-15 21:20:00 2021-02-15 21:42:00 Emergency X NICCI PICKETT [facility] ERT [id number] [facility] 2021-02-15 21:20:00 2021-02-15 21:42:00 Emergency Nicci Pickett [facility] [id number] [facility] 2021-02-13 10:00:00 2021-02-13 10:00:00 Outpatient MAGALI CHRISTENSEN [facility] [id number] [facility] 2021-02-13 09:26:05 2021-02-13 09:46:05 Urgent Care Provider, [facility] Roly Magali [facility] [id number] [facility] 2020-10-17 19:45:00 2020-10-17 19:45:00 Outpatient R MAGALI BUSTILLOS [facility] [id number] [facility] 2019-06-14 05:27:00 2019-06-14 06:16:00 Emergency X EDI GRAY [facility] ERT [id number] [facility] Results Test Description Test Time Test Comments Results Result Co mments Source [facility]
[2023-08-14] MEDS ORDERED: NA CHLORIDE 0.9% 1,000 ML ONE (17:23)
--- NOTE | 2023-08-14 17:30 | EKG ---
Test Date: 2023-08-14 Test Time: 16:19:03 Octave Board Racker: KIRAN MEASUREMENT RESULTS: Intervals: Rate: 68 MN: 134 QRSD: 88 QT: 394 QTc: 418 [place]: P: 43 MN: 134 QRS: 7 T: 12 INTERPRETIVE STATEMENTS: Normal sinus rhythm with sinus arrhythmia Normal ECG Compared to ECG 01/18/1994 09:42:00 No significant changes Electronically Signed On 08-14-23 16:55:48 CDT by David Vallejo
[2023-08-14 17:44] LABS: Anion Gap 8.8 mEq/L (5.0-15.0); BUN Blood Urea Nitrogen 9 mg/dL (7-18); Bicarbonate 28 mEq/L (21-32); Glomerular Filtration Rate 102 ml/min (=/>90); Glucose Level 136 mg/dL (74-106); Potassium 3.8 mEq/L (3.5-5.1); Sodium Level 138 mEq/L (136-145)
[2023-08-14 17:45] LABS: Absolute Basophils 0.1 K/uL (0-0.5); Absolute Eosinophils 0.3 K/uL (0-0.5); Absolute Lymphocytes (CBC) 3.5 K/uL (0.7-4.9); Absolute Monocytes 0.7 K/uL (0.1-1.3); Absolute Neutrophil 10.7 K/uL (1.8-8.0); Basophils % 0.7 % (0-1.3); Hematocrit 40.5 % (36.0-45.0); Hemoglobin 13.7 g/dL (12.0-15.0); Lymphocytes % 22.8 % (15.3-44.8); MCH 28.1 pg (27.0-35.0); MCHC 33.9 g/dL (32.0-36.0); MCV 82.9 fL (80-100); MPV 8.8 fL (7.6-11.3); Monocytes % 4.9 % (3.3-12.3); Neutrophils % 69.6 % (41.7-73.7); Nucleated Red Blood Cells % 0.1 % (0-0); Platelets 399 thou/uL (152-406); RBC Red Blood Cell Count 4.89 M/uL (3.86-4.86); Red Cell Distribution Width 14.2 % (12.1-15.2)
[2023-08-14 17:46] LABS: Troponin High Sensitivity < 3.0 pg/mL (<58.9)
--- NOTE | 2023-08-14 18:04 | RAD REPORT ---
EXAM DESCRIPTION: CT - Head Brain Wo Cont - 08/14/2023 5:24 pm CLINICAL HISTORY: SYNCOPE COMPARISON: No comparisons TECHNIQUE: Noncontrast head CT images were obtained without IV contrast. Multiplanar reformats were generated and reviewed. All CT scans are performed using dose optimization technique as appropriate and may include automated exposure control or mA/KV adjustment according to patient size. FINDINGS: No intracranial hemorrhage, mass, or edema. Midline structures are unremarkable. Normal ventricular caliber for age. Mclean-white matter differentiation is preserved, without evidence of acute infarct. No abnormal extra- axial fluid collections. Mastoid air cells and visualized portions of the paranasal sinuses are clear. No acute bony findings. IMPRESSION: No evidence of an acute intracranial process.
--- NOTE | 2023-08-14 18:13 | RAD REPORT ---
EXAM DESCRIPTION: Richie Single View08/14/2023 5:52 pm CLINICAL HISTORY: CHEST PAIN COMPARISON: No comparisons TECHNIQUE: Portable AP view of the chest. FINDINGS: Decreased penetration somewhat limits evaluation. The lungs are clear. No pneumothorax or effusion. The cardiomediastinal contours are unremarkable. IMPRESSION: No acute cardiopulmonary process.
[2023-08-14 18:27] LABS: Sqamous Epithelial <5 /HPF (None Seen); Urine Bacteria <20 /HPF (<20); Urine Crystals Unidentified Few /HPF (None Seen); Urine Culture Reflex Order NOT NEEDED; Urine Micro Reflex YN NO BILL MICROSCOPIC; Urine Mucus Slight /HPF (None Seen); Urine RBC <5 /HPF (None Seen); Urine WBC <5 /HPF (<5)
--- NOTE | 2023-08-14 19:51 | EDPHYS ---
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 - Infectious Disease History:: Denies. - Social history:: Smoking status: Patient reports the use of cigarette tobacco products, smokes one-half pack cigarettes per day. Vital Signs: 16:09 BP 128 / 80; Pulse 84; Resp 14; Temp 97.5; Pulse Ox 99% on R/A; Weight 88.45 kg; Height ss 5 ft. 0 in. ; Pain 5/10; 19:00 BP 131 / 77; Pulse 86; Resp 18; Pulse Ox 99% ; cp4 16:09 Body Mass Index 38.08 (88.45 kg, 152.4 cm) ss 16:09 Pain Scale: Adult ss MDM: 16:20 Patient medically screened. cp 08/13 16:59 Order name: Basic Metabolic Panel; Complete Time: 18:03 cp 08/13 19:33 Interpretation: Normal except: GLUC 136. cp 08/13 16:59 Order name: CBC with Diff; Complete Time: 18:03 cp 08/13 19:33 Interpretation: Normal except: WBC 15.40; RBC 4.89; NEUT A 10.7. cp 08/13 16:59 Order name: Troponin HS; Complete Time: 18:03 cp 08/13 17:06 Order name: Urine Microscopic Only; Complete Time: 19:01 cp 08/13 17:06 Order name: Test, Urine; Complete Time: 19:01 cp 08/13 16:59 Order name: XRAY Chest (1 view); Complete Time: 19:01 cp 08/13 17:06 Order name: CT Head Brain wo Cont; Complete Time: 19:01 cp 08/13 16:54 Order name: EKG; Complete Time: 16:55 ss 08/13 16:54 Order name: EKG - Nurse/Tech; Complete Time: 16:54 ss 08/13 16:59 Order name: Cardiac monitoring; Complete Time: 17:22 cp 08/13 16:59 Order name: IV Saline Lock; Complete Time: 17:17 cp 08/13 16:59 Order name: Labs collected and sent; Complete Time: 17:17 cp 08/13 16:59 Order name: O2 Per Protocol; Complete Time: 17:22 cp 08/13 16:59 Order name: O2 Sat Monitoring; Complete Time: 17:22 cp Administered Medications: 17:36 Drug: NS 0.9% IV 1000 ml IV at 1 bolus Per protocol; 1000 mL bolus Route: IV; Rate: 1 cp4 bolus; Site: right antecubital; 19:33 Follow up: Response: No adverse reaction; IV Status: Completed infusion cp4 Disposition Summary: 08/14/23 19:51 Discharge Ordered Notes: Location: Home cp Problem: new cp Symptoms: have improved cp Condition: Stable cp Diagnosis - Syncope cp Followup: cp - With: David Vallejo MD - When: 2 - 3 days - Reason: Recheck today's complaints Discharge Instructions: - Discharge Summary Sheet cp - Syncope cp Forms: - Medication Reconciliation Form cp - Antibiotic Education cp - Prescription Opioid Use cp - Patient Portal Instructions cp - Leadership Thank You Letter cp Signatures: Dispatcher [employer] EDMS Rachel Ma RN RN Hernando Lee PA PA cp Radha Moscoso cp4 Corrections: (The following items were deleted from the chart) 16:59 16:59 BASIC METABOLIC PANEL+C.LAB.BRZ ordered. EDMS EDMS 16:59 16:59 CBC+H.LAB.BRZ ordered. EDMS EDMS 16:59 16:59 Troponin High Sensitivity+C.LAB.BRZ ordered. EDMS EDMS 16:59 16:59 Chest Single View+RAD.RAD.BRZ ordered. EDMS EDMS
--- NOTE | 2023-08-14 19:51 | ER ---
Nurse's Notes [facility] Name: Anna Pizarro Age: 33 yrs Sex: Female : 1990 Arrival Date: 08/14/2023 Time: 15:48 Bed 17 Private MD: Diagnosis: Syncope Presentation: 08/13 16:09 Chief complaint: Patient states: syncopal episode that occurred at work 2 hours ago. Pt ss reports that when she came to she began having chest discomfort and lightheadedness. Also reports heavier period than normal. Coronavirus screen: Client denies travel out of the [place] in the last 14 days. Ebola Screen: Patient denies exposure to infectious person. Patient denies travel to an Ebola-affected area in the 21 days before illness onset. Initial Sepsis Screen: Does the patient meet any 2 criteria? No. Patient's initial sepsis screen is negative. Does the patient have a suspected source of infection? No. Patient's initial sepsis screen is negative. Risk Assessment: Do you want to hurt yourself or someone else? Patient reports no desire to harm self or others. Onset of symptoms was August 14, 2023. 16:09 Method Of Arrival: Ambulatory ss 16:09 Acuity: EDWIN 3 ss Triage Assessment: 16:11 General: Appears in no apparent distress. comfortable, Behavior is calm, cooperative. ss Pain: Complains of pain in chest Pain currently is 5 out of 10 on a pain scale. Neuro: Level of Consciousness is awake, alert, obeys commands, Oriented to person, place, time, situation, Reports "lightheadedness". Respiratory: Airway is patent Respiratory effort is even, unlabored, Respiratory pattern is regular. : Reports vaginal bleeding that is "heavier than normal". Derm: Skin is pink, warm \\T\\ dry. normal. 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 - Infectious Disease History:: Denies. - Social history:: Smoking status: Patient reports the use of cigarette tobacco products, smokes one-half pack cigarettes per day. Screenin:01 [facility] ED Fall Risk Assessment (Adult) History of falling in the last 3 months, cp4 including since admission No falls in past 3 months (0 pts) Confusion or Disorientation No (0 pts) Intoxicated or Sedated No (0 pts) Impaired Gait No (0 pts) Mobility Assist Device Used No (0 pt) Altered Elimination No (0 pt) Score/Fall Risk Level 0 - 2 = Low Risk Oriented to surroundings, Maintained a safe environment, Assessed \\T\\ reinforced patient's understanding of fall precautions, Hourly rounding (assess needs \\T\\ fall precautionary measures) done. Abuse screen: Denies threats or abuse. Nutritional screening: No deficits noted. Tuberculosis screening: No symptoms or risk factors identified. Assessment: 20:01 General: Appears uncomfortable, Behavior is calm, cooperative, appropriate for age. cp4 Pain:. Cardiovascular: Reports chest pain, lightheadedness, syncope. Vital Signs: 16:09 BP 128 / 80; Pulse 84; Resp 14; Temp 97.5; Pulse Ox 99% on R/A; Weight 88.45 kg; Height ss 5 ft. 0 in. ; Pain 5/10; 19:00 BP 131 / 77; Pulse 86; Resp 18; Pulse Ox 99% ; cp4 16:09 Body Mass Index 38.08 (88.45 kg, 152.4 cm) ss 16:09 Pain Scale: Adult ss ED Course: 15:49 Patient arrived in ED. rg4 15:58 Hernando Guajardo PA is PHCP. cp 15:58 James Solis MD is Attending Physician. cp 16:11 Triage completed. ss 16:11 Arm band placed on right wrist. ss 16:21 EKG done, by ED staff, reviewed by James Solis MD. ss 16:22 EKG completed in triage. Results shown to MD. ss 17:16 Patient placed in an exam room, on a stretcher. ll1 17:17 Inserted saline lock: 20 gauge in right antecubital area, using aseptic technique. jr12 Blood collected. 17:17 Basic Metabolic Panel Sent. jr12 17:17 CBC with Diff Sent. jr12 17:17 Troponin HS Sent. jr12 17:21 Radha Moscoso is Primary Nurse. cp4 17:26 CT Head Brain wo Cont In Process Unspecified. EDMS 17:54 XRAY Chest (1 view) In Process Unspecified. EDMS 19:49 David Vallejo MD is Referral Physician. cp 20:01 Bed in low position. Call light in reach. Side rails up X2. Provided Education on: cp4 syncope. 20:01 No provider procedures requiring assistance completed. intact, bleeding controlled, No cp4 redness/swelling at site. Pressure dressing applied. Administered Medications: 17:36 Drug: NS 0.9% IV 1000 ml IV at 1 bolus Per protocol; 1000 mL bolus Route: IV; Rate: 1 cp4 bolus; Site: right antecubital; 19:33 Follow up: Response: No adverse reaction; IV Status: Completed infusion cp4 Medication: 20:01 VIS not applicable for this client. cp4 Outcome: 19:51 Discharge ordered by MD. cp 20:01 Discharged to home ambulatory, cp4 20:01 Condition: stable 20:01 Discharge instructions given to patient, Instructed on discharge instructions, follow up and referral plans. Demonstrated understanding of instructions, follow-up care, 20:03 Patient left the ED. cp4 Signatures: Dispatcher [employer] EDMS Rachel Ma, RN RN Hernando Lee, Marie Jalloh cp4 Shama Willoughby RN RN Radha Cornejo cp4 Laila Coleman jr
[2023-08-14 21:19] VITALS: BP 131/77; TEMP 97.5; O2SAT 99
== END 2023-08-14 20:03 | disposition home or self-care (01) ==
LOC: ER 15:48
DX: R55 Syncope and collapse (principal); F17.210 Nicotine dependence, cigarettes, uncomplicated; Z88.1 Allergy status to other antibiotic agents
CPT/HCPCS: 36415; 70450; 71045; 80048; 81015; 81025; 84484; 85025; 93005; J7030

== ENCOUNTER 2023-09-19 15:30 | Emergency (ER) | payer SELFPAY ==
--- OUTSIDE RECORDS SUMMARY | 2023-09-19 15:33 | XMS REPORT | Continuity of Care Document ---
Author Name Unknown Address [address] [facility] [place] [address] [facility] thconnect Address [address] [facility] [place] [address] Care Team Providers Care Loan Services Professional Name Role Phone PCP, PATIENT DOES NOT HAVE A Primary Care Physic christelle Unavailable LADAN JEFFERY Attending Clinician Unavail able NICCI PICKETT Attending Clinician Unavailable Nicci Desir Attending Clinician [phone] MYA RATLIFF Attending Clinician Unavailab Mya Lewis DO Attending Clinician [phone] Melony Forrest LMSW Attending Clinician MAGALI Vicente Attending Clinician Unavailable Provider, [facility] Attending Clinician Unavailable Magali Cross Attending Clinician [phone] EDI GRAY Attending Clinician Unavailable EDI GRAY Admitting Clinician Unavailable Problems Condition Name Condition Details Condition Category Status Onset Date Resolution Date Last Treatment Date Treating Clinician Comments Source Chronic migraine without aura without status migrainosu s, not intractabl e Chronic migraine without aura without status migrainosu s, not intractabl e Disease Active 10-17 00:00: 00 [facility] Subacute maxillary sinusitis Subacute maxillary sinusitis Disease Active 10-17 00:00: 00 [facility] Dental caries Dental caries Disease Active 10-17 00:00: 00 [facility] Nicotine dependence with current use Nicotine dependence with current use Disease Active 11-06 00:00: 00 Overview: Formattin g of this note might be different from the original. 1 pack per day since 16 years old (10 pack-year as of 11/05) [facility] Nicotine dependence with current use Nicotine dependence with current use Disease Active 11-06 00:00: 00 Overview: Formattin g of this note might be different from the original. 1 pack per day since 16 years old (10 pack-year as of 11/05) [facility] Chronic fatigue Chronic fatigue Disease Active 11-06 00:00: 00 Overview: Formattin g of this note might be different from the original. Will be evaluated by GI in 11/2016 for associate d bowel issues and then hematolog y [facility] Generalize d anxiety disorder Generalize d anxiety disorder Disease Active 09-02 00:00: 00 [facility] Abdominal pain, chronic, left lower quadrant Abdominal pain, chronic, left lower quadrant Disease Active 08-19 00:00: 00 [facility] Leukocytos is Leukocytos is Disease Active 08-19 00:00: 00 [facility] Obesity (BMI 30-39.9) Obesity (BMI 30-39.9) Disease Active 06-27 00:00: 00 [facility] Allergies, Adverse Reactions, Alerts Allergy Name Allergy Type Status Severity Reaction(s) Onset Date Inactive Date Treating Clinician Comments Source Metronid azole Propensi ty to adverse reaction s Active Dizziness 07-08 00:00: 00 [facility] METRONID AZOLE DRUG INGREDI Active Dizziness 07-08 00:00: 00 [facility] Social History Social Habit Start Date Stop Date Quantity Comments Source History of tobacco use Cigarette Smoker [facility] Exposure to SARS-CoV-2 (event) 2022-06-05 00:00:00 2022-06-15 16:45:00 Not sure [facility] Alcohol intake 2022-05-27 00:00:00 2022-05-27 00:00:00 0 /d [facility] Tobacco use and exposure 2016-08-19 00:00:00 2016-08-19 00:00:00 Smokeless tobacco non-user [facility] Sex Assigned At 1990 00:00:00 1990 00:00:00 [facility] Smoking Status Start Date Stop Date Source Smokes tobacco daily 2016-08-19 00:00:00 [facility] Medications Ordered Medication Name Filled Medication Name Start Date Stop Date Current Medication? Ordering Clinician Indication Dosage Frequency Signature (SIG) Comments Components Source clindamycin 150 mg capsule 05-27 00:00: 00 06-07 05:59 :00 No [id number] 450mg Take 3 capsules by mouth in the morning and 3 capsules at noon and 3 capsules in the evening. Do all this for 10 days. [facility] HYDROcodone -acetaminop hen (NORCO 5) 5-325 mg tablet 1 tablet 10-04 17:00: 00 10-04 15:52 :00 No 1{tbl} 1 tablet, Oral, ONCE, 1 dose, On Fri10/04/21 at 1200, YO [facility] benzonatate 100 mg capsule 2020-04 00:00: 00 Yes [id number] 100mg Take 1 capsule by mouth 3 (three) times daily as needed for Cough. [facility] albuterol 90 mcg/actuati on inhaler 2020-04 00:00: 00 Yes [id number] 2{puff} Inhale 2 Puffs every 4 (four) hours as needed for Wheezing or Shortness of Breath. [facility] bromphenira mine-pseudo ephedrine-D M (BROMFED DM) 2-30-10 mg/5 mL syrup 2020-04 00:00: 00 02-24 04:59 :00 No [id number] 5mL Take 5 mL by mouth 4 (four) times daily as needed for Congestion /Allergies or Cough for up to 10 days. [facility] butalbital- aspirin-caf feine 50-325-40 mg per capsule 10-17 00:00: 00 Yes [id number] 1{capsu le} Take 1 capsule by mouth every 6 (six) hours as needed for Pain (Migraine MORGAN). [facility] nicotine 14 mg/24 hr patch 10-17 00:00: 00 Yes [id number] 1{patch } Apply 1 Patch to area(s) every 24 (twenty-fo ur) hours. Apply 21mg patch daily x 6 weeks; then apply 14mf patch daily x 2 weeks; then apply 7mg patch daily x 2 weeks. Stop smoking on initiation of therapy [facility] nicotine 21 mg/24 hr patch 10-17 00:00: 00 Yes [id number] 1{patch } Apply 1 Patch to area(s) daily. Apply 21mg patch daily x 6 weeks; then apply 14mf patch daily x 2 weeks; then apply 7mg patch daily x 2 weeks. Stop smoking on initiation of therapy [facility] nicotine 7 mg/24 hr patch 10-17 00:00: 00 Yes [id number] 1{patch } Apply 1 Patch to area(s) every 24 (twenty-fo ur) hours. Apply 21mg patch daily x 6 weeks; then apply 14mf patch daily x 2 weeks; then apply 7mg patch daily x 2 weeks. Stop smoking on initiation of therapy [facility] fluticasone propionate 50 mcg/actuati on nasal spray 10-17 00:00: 00 Yes [id number] 1{spray } Use 1 Arminto in each nostril daily. [facility] amoxicillin -clavulanat e (AUGMENTIN) 875-125 mg per tablet 10-17 00:00: 00 05-27 00:00 :00 No [id number] 1{tbl} Take 1 tablet by mouth 2 (two) times daily. [facility] Vital Signs Vital Name Observation Time Observation Value Comments S dorian Systolic blood pressure 2022-06-15 23:02:35 124 mm[Hg] [facility] Diastolic blood pressure 2022-06-15 23:02:35 81 mm[Hg] [facility] Heart rate 2022-06-15 23:02:35 97 /min [facility] Body temperature 2022-06-15 23:02:35 37.22 Qi [facility] Respiratory rate 2022-06-15 23:02:35 16 /min [facility] Oxygen saturation in Arterial blood by Pulse oximetry 2022-06-15 23:02:35 98 /min [facility] Body height 2022-06-15 22:47:00 165.1 cm [facility] Body weight 2022-06-15 22:47:00 92.987 kg [facility] BMI 2022-06-15 22:47:00 34.11 kg/m2 [facility] Systolic blood pressure 2022-05-28 00:34:00 147 mm[Hg] [facility] Diastolic blood pressure 2022-05-28 00:34:00 87 mm[Hg] [facility] Heart rate 2022-05-28 00:34:00 107 /min [facility] Body temperature 2022-05-28 00:34:00 37.11 Qi [facility] Respiratory rate 2022-05-28 00:34:00 20 /min [facility] Body height 2022-05-28 00:34:00 152.4 cm [facility] Body weight 2022-05-28 00:34:00 83.915 kg [facility] BMI 2022-05-28 00:34:00 36.13 kg/m2 [facility] Oxygen saturation in Arterial blood by Pulse oximetry 2022-05-28 00:34:00 99 /min [facility] Systolic blood pressure 2021-10-04 17:39:00 120 mm[Hg] [facility] Diastolic blood pressure 2021-10-04 17:39:00 80 mm[Hg] [facility] Heart rate 2021-10-04 17:39:00 73 /min [facility] Respiratory rate 2021-10-04 17:39:00 18 /min [facility] Oxygen saturation in Arterial blood by Pulse oximetry 2021-10-04 17:39:00 97 /min [facility] Body temperature 2021-10-04 15:46:00 37.5 Qi [facility] Body height 2021-10-04 15:46:00 152.4 cm [facility] 2021-10-04 15:46:00 81.647 kg [facility] BMI 2021-10-04 15:46:00 35.15 kg/m2 [facility] Body height 2021-02-16 02:18:00 152.4 cm [facility] Body weight 2021-02-16 02:18:00 90.266 kg [facility] BMI 2021-02-16 02:18:00 38.86 kg/m2 [facility] Oxygen saturation in Arterial blood by Pulse oximetry 2021-02-16 02:18:00 99 /min [facility] Systolic blood pressure 2021-02-16 02:18:00 131 mm[Hg] [facility] Diastolic blood pressure 2021-02-16 02:18:00 81 mm[Hg] [facility] Heart rate 2021-02-16 02:18:00 99 /min [facility] Body temperature 2021-02-16 02:18:00 37.22 Qi [facility] Respiratory rate 2021-02-16 02:18:00 18 /min [facility] Systolic blood pressure 2021-02-13 14:34:00 125 mm[Hg] [facility] Diastolic blood pressure 2021-02-13 14:34:00 74 mm[Hg] [facility] Heart rate 2021-02-13 14:34:00 103 /min [facility] Body temperature 2021-02-13 14:34:00 37.56 Qi [facility] Respiratory rate 2021-02-13 14:34:00 18 /min [facility] Body height 2021-02-13 14:34:00 152.4 cm [facility] Body weight 2021-02-13 14:34:00 90.674 kg [facility] BMI 2021-02-13 14:34:00 39.04 kg/m2 [facility] Oxygen saturation in Arterial blood by Pulse oximetry 2021-02-13 14:34:00 98 /min [facility] Procedures Procedure Date / Time Performed Performing Clinicia n Source ED LACERATION REPAIR 2022-06-15 23:53:19 Nicci Pickett [facility] CONSENT/REFUSAL FOR DIAGNOSIS AND TREATMENT 2022-06-15 22:43:25 Doctor Unassigned, [place] [facility] CONSENT/REFUSAL FOR DIAGNOSIS AND TREATMENT 2022-05-28 00:31:56 Doctor Unassigned, [place] [facility] NOTICE OF PRIVACY PRACTICES 2021-10-04 15:41:13 Doctor Unassigned, [place] [facility] CONSENT/REFUSAL FOR DIAGNOSIS AND TREATMENT 2021-10-04 15:40:49 Doctor Unassigned, [place] [facility] CONSENT/REFUSAL FOR DIAGNOSIS AND TREATMENT 2021-02-16 02:11:53 Doctor Unassigned, [place] [facility] POCT GRP A STREP (MOLECULAR) 2021-02-13 15:09:00 Koko Killian [facility] Encounters Start Date/Time End Date/Time Encounter Type Admission Type Attending [facility] Care Facility Care Department Encounter ID Source 2021-02-18 09:18:43 Emergency [facility] [id number] [facility] 2023-09-10 09:45:00 2023-09-10 09:45:00 Outpatient R LADAN JEFFERY [facility] [id number] [facility] 2022-07-15 10:09:30 2022-07-15 10:09:30 Outpatient [facility] [id number] Satnam F Klaus 2022-07-12 17:41:36 2022-07-12 17:41:36 Outpatient [facility] [id number] Satnam F Klaus 2022-06-15 16:49:00 2022-06-15 18:00:00 Emergency X NICCI PICKETT [facility] ERT [id number] [facility] 2022-06-15 16:49:00 2022-06-15 18:00:00 Emergency Nicci Pickett [facility] [id number] [facility] 2022-05-27 18:36:00 2022-05-27 19:27:00 Emergency X NICCI PICKETT [facility] ERT [id number] [facility] 2022-05-27 18:36:00 2022-05-27 19:27:00 Emergency Nicci Pickett [facility] [id number] [facility] 2021-10-04 10:50:00 2021-10-04 12:40:00 Emergency X EVYJACKRA [facility] ERT [id number] [facility] 2021-10-04 10:50:00 2021-10-04 12:40:00 Emergency Mya Ratliff [facility] [id number] [facility] 2021-03-08 00:00:00 2021-03-08 00:00:00 Case Management Melony Forrest [id number] [facility] 2021-02-15 21:20:00 2021-02-15 21:42:00 Emergency X NICCI PICKETT [facility] ERT [id number] [facility] 2021-02-15 21:20:00 2021-02-15 21:42:00 Emergency Nicci Pickett [facility] [id number] [facility] 2021-02-13 10:00:00 2021-02-13 10:00:00 Outpatient MAGALI CHRISTENSEN [facility] [id number] [facility] 2021-02-13 09:26:05 2021-02-13 09:46:05 Urgent Care Provider, [facility] Roly [facility] Jere Cowan?[facility] [id number] [facility] 2020-10-17 19:45:00 2020-10-17 19:45:00 Outpatient R MAGALI BUSTILLOS [facility] [id number] [facility] 2019-06-14 05:27:00 2019-06-14 06:16:00 Emergency X EDI GRAY [facility] ERT [id number] [facility] Results Test Description Test Time Test Comments Results Result Co mments Source [facility]
[2023-09-19] MEDS ORDERED: NA CHLORIDE 0.9% 500 ML ONE (15:45)
[2023-09-19 16:01] LABS: Absolute Basophils 0.1 K/uL (0-0.5); Absolute Eosinophils 0.3 K/uL (0-0.5); Absolute Lymphocytes (CBC) 2.6 K/uL (0.7-4.9); Absolute Monocytes 0.8 K/uL (0.1-1.3); Absolute Neutrophil 12.4 K/uL (1.8-8.0); Basophils % 0.4 % (0-1.3); Eosinophils % 1.8 % (0-4.4); Hematocrit 42.8 % (36.0-45.0); Hemoglobin 14.1 g/dL (12.0-15.0); MCH 27.7 pg (27.0-35.0); MCHC 32.9 g/dL (32.0-36.0); MCV 84.1 fL (80-100); MPV 8.8 fL (7.6-11.3); Monocytes % 4.9 % (3.3-12.3); Neutrophils % 76.9 % (41.7-73.7); Platelets 396 thou/uL (152-406); RBC Red Blood Cell Count 5.09 M/uL (3.86-4.86); Red Cell Distribution Width 13.8 % (12.1-15.2)
[2023-09-19 16:16] LABS: PT Prothrombin Time 11.6 SECONDS (9.5-12.5); Protime INR 1.06
[2023-09-19 16:18] LABS: D-Dimer < 215 FEUng/mL (<500)
[2023-09-19 16:20] LABS: ALT/SGPT 28 U/L (13-56); Albumin 3.5 g/dL (3.4-5.0); Albumin/Globulin Ratio 0.9 (1.1-1.8); Alkaline Phosphatase 84 U/L (45-117); Anion Gap 6.7 mEq/L (5.0-15.0); BUN Blood Urea Nitrogen 10 mg/dL (7-18); Bicarbonate 27 mEq/L (21-32); Bilirubin Total 0.2 mg/dL (0.2-1.0); Globulin 3.9 g/dL (2.3-3.5); Glomerular Filtration Rate 114 ml/min (=/>90); Glucose Level 191 mg/dL (74-106); Lipase 46 U/L (13-75); Magnesium 1.9 mg/dL (1.6-2.4); NT PRO-BNP 57 pg/mL (<125); Potassium 3.7 mEq/L (3.5-5.1); Protein, Total 7.4 g/dL (6.4-8.2); Sodium Level 135 mEq/L (136-145)
[2023-09-19 16:36] LABS: AST/SGOT < 10 U/L (15-37); Bilirubin Direct < 0.2 mg/dL (0-0.2); Troponin High Sensitivity < 3.0 pg/mL (<58.9)
[2023-09-19 17:24] LABS: Specific Gravity 1.006 (1.005-1.030); Sqamous Epithelial <5 /HPF (None Seen); Urine Bacteria None Seen /HPF (<20); Urine Bilirubin NEGATIVE (Negative); Urine Blood Negative (Negative); Urine Clarity Turbid (Clear); Urine Color Colorless (Yellow); Urine Culture Reflex Order NOT NEEDED; Urine Glucose NEGATIVE (Negative); Urine Ketones NEGATIVE (Negative); Urine Microscopic Reflex YN ORDER UMIC; Urine Nitrite NEGATIVE (Negative); Urine Protein NEGATIVE (Negative); Urine RBC <5 /HPF (None Seen); Urine Urobilinogen Normal (Normal); Urine WBC <5 /HPF (<5); Urine pH 6.5 (5.0-7.0)
--- NOTE | 2023-09-19 17:44 | RAD REPORT ---
EXAM DESCRIPTION: RADChest Single View09/19/2023 4:10 pm CLINICAL HISTORY: CHEST PAIN COMPARISON: Chest Single View dated 08/14/2023 TECHNIQUE: Portable AP view of the chest. FINDINGS: The lungs are clear. No pneumothorax or effusion. The cardiomediastinal contours are unre markable. IMPRESSION: No acute cardiopulmonary process.
[2023-09-19 17:46] LABS: SARS-CoV-2 Antigen CONTROL BLUE LINE VIS/BG OK; SARS-CoV-2 Antigen Rapid Res Negative (Negative)
[2023-09-19 18:10] LABS: Specific Gravity 1.006 (1.005-1.030)
--- NOTE | 2023-09-19 19:17 | RAD REPORT ---
EXAM DESCRIPTION: CT - Chest For Pe Angio - 09/19/2023 6:31 pm CLINICAL HISTORY: CHEST PAIN COMPARISON: Chest Single View dated 09/19/2023 TECHNIQUE: Thin axial CT images of the chest were obtained following administration of 100 mL Isovue 370 IV contrast. Multiplanar reconstructions, and maximum intensity projection reconstructions were generated and reviewed. Exam utilizes a protocol for optimal evaluation of pulmonary arterial tree. All CT scans are performed using dose optimization technique as appropriate and may include automated exposure control or mA/KV adjustment according to patient size. FINDINGS: Pulmonary arteries are normal. No emboli or other suspicious finding. No acute or signific ant aorta findings. No mass or infiltrate in the lung parenchyma. No pleural thickening or pleural effusion. No pneumotho rax. No abnormal mediastinal masses or lymphadenopathy seen. Small hilar lymph nodes, likely reactive. No chest wall mass or abnormal axilliary lymphadenopathy. IMPRESSION: No evidence of acute central pulmonary emboli. Negative CT scan of the chest for other significant findings.
--- NOTE | 2023-09-19 19:30 | EDPHYS ---
Physician Documentation [facility] Name: Anna Pizarro Age: 33 yrs Sex: Female : 1990 Arrival Date: 09/19/2023 Time: 15:30 Bed 4 Private MD: CASSIA Physician Hernando Perry HPI: 09/18 16:55 This 33 yrs old Female presents to ER via Ambulatory with complaints of Chest marylu Pressure. 16:55 The patient or guardian reports chest pain that is located primarily in the substernal marylu area, anterior chest wall, left. The pain does not radiate. Associated signs and symptoms: The patient has no apparent associated signs or symptoms. The chest pain is described as a pressure. Duration: The patient or guardian reports multiple episodes, that wax and wane. Modifying factors: The symptoms are alleviated by remaining still, the symptoms are aggravated by deep breath, movement, palpation of area. Severity of pain: At its worst the pain was moderate in the emergency department the pain has improved mildly. The patient has not experienced similar symptoms in the past. 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 - Infectious Disease History:: Denies. - Social history:: Smoking status: Reported history of juuling and/or vaping. - Family history:: not pertinent. ROS: 16:55 Constitutional: Negative for fever, chills, and weight loss, Eyes: Negative for injury, marylu pain, redness, and discharge, ENT: Negative for injury, pain, and discharge, Neck: Negative for injury, pain, and swelling, Abdomen/GI: Negative for abdominal pain, nausea, vomiting, diarrhea, and constipation, Back: Negative for injury and pain, : Negative for injury, bleeding, discharge, and swelling, MS/Extremity: Negative for injury and deformity, Skin: Negative for injury, rash, and discoloration, Neuro: Negative for headache, weakness, numbness, tingling, and seizure, Psych: Negative for depression, anxiety, suicide ideation, homicidal ideation, and hallucinations, Allergy/Immunology: Negative for hives, rash, and allergies, Endocrine: Negative for neck swelling, polydipsia, polyuria, polyphagia, and marked weight changes, 16:55 Cardiovascular: Positive for chest pain, with movement, 16:55 Respiratory: Positive for shortness of breath, at rest. Exam: 16:55 Constitutional: This is a well developed, well nourished patient who is awake, alert, marylu and in no acute distress. Head/Face: Normocephalic, atraumatic. Eyes: Pupils equal round and reactive to light, extra-ocular motions intact. Lids and lashes normal. Conjunctiva and sclera are non-icteric and not injected. Cornea within normal limits. Periorbital areas with no swelling, redness, or edema. ENT: Nares patent. No nasal discharge, no septal abnormalities noted. Tympanic membranes are normal and external auditory canals are clear. Oropharynx with no redness, swelling, or masses, exudates, or evidence of obstruction, uvula midline. Mucous membranes moist. Neck: Trachea midline, no thyromegaly or masses palpated, and no cervical lymphadenopathy. Supple, full range of motion without nuchal rigidity, or vertebral point tenderness. No Meningismus. Cardiovascular: Regular rate and rhythm with a normal S1 and S2. No gallops, murmurs, or rubs. Normal PMI, no JVD. No pulse deficits. Respiratory: Lungs have equal breath sounds bilaterally, clear to auscultation and percussion. No rales, rhonchi or wheezes noted. No increased work of breathing, no retractions or nasal flaring. Abdomen/GI: Soft, non-tender, with normal bowel sounds. No distension or tympany. No guarding or rebound. No evidence of tenderness throughout. Back: No spinal tenderness. No costovertebral tenderness. Full range of motion. Skin: Warm, dry with normal turgor. Normal color with no rashes, no lesions, and no evidence of cellulitis. MS/ Extremity: Pulses equal, no cyanosis. Neurovascular intact. Full, normal range of motion. Neuro: Awake and alert, GCS 15, oriented to person, place, time, and situation. Cranial nerves II-XII grossly intact. Motor strength 5/5 in all extremities. Sensory grossly intact. Cerebellar exam normal. Normal gait. Psych: Awake, alert, with orientation to person, place and time. Behavior, mood, and affect are within normal limits. 16:55 Chest/axilla: Inspection: normal, Palpation: tenderness, that is mild, of the left clavicle and anterior aspect of left upper chest, Axilla: are normal, Breasts: are normal, Lymph nodes: lymphadenopathy is not appreciated, supraclavicular nodes, non-palpable, Axillary nodes are non-tender, 16:55 ECG was reviewed by the Attending Physician. Vital Signs: 15:34 BP 115 / 78; Pulse 77; Resp 18; Temp 97.6; Pulse Ox 100% ; Weight 90.72 kg; Height 5 as6 ft. 0 in. ; Pain 8/10; 16:00 BP 131 / 87; Pulse 69; Resp 17; Pulse Ox 98% ; nj1 16:45 BP 111 / 80; Pulse 71; Resp 17; Pulse Ox 97% ; nj1 18:00 BP 116 / 74; Pulse 64; Resp 15; Pulse Ox 96% ; nj1 19:52 BP 117 / 83; Pulse 78; Resp 22; Temp 97.8(TE); Pulse Ox 99% on R/A; Pain 0/10; tm6 15:34 Body Mass Index 39.06 (90.72 kg, 152.4 cm) as6 15:34 Pain Scale: Adult as6 19:52 Pain Scale: Adult tm6 MDM: 15:37 Patient medically screened. marylu 17:03 Differential diagnosis: abnormal EKG, acute myocardial infarction, acute pericarditis, marylu anxiety, coronary artery disease chest wall pain, congestive heart failure Cholelithiasis costochondritis, esophagitis, hiatal hernia, pancreatitis, peptic ulcer disease, pericarditis, pleurisy, pneumonia, pulmonary embolus, stable angina, thoracic aortic disection, unstable angina. HEART Score: History: Slightly Suspicious (0), ECG: Normal (0), Age: < or = 45 years (0), Risk Factors: No Risk Factors Known (0), Troponin: < or = 1 x Normal Limit (0). OLIVIER Risk Score: TOTAL SCORE = 0. Data reviewed: vital signs, nurses notes, lab test result(s), EKG, radiologic studies, CT scan, plain films. Consideration of Admission/Observation Escalation of care including admission/observation considered. I considered the following discharge prescriptions or medication management in the emergency department Medications were administered in the Emergency Department. See MAR. Independent interpretation of the following test(s) in the Emergency Department EKG: See my EKG interpretation above. Test considered but Not performed: Ultrasound no 2 d echo. Historians other than the Patient: pt well informed. Care significantly affected by the following chronic conditions: Obesity, migraines and pcos. Counseling: I had a detailed discussion with the patient and/or guardian regarding the historical points, exam findings, and any diagnostic results supporting the discharge/admit diagnosis, the presence of at least one elevated blood pressure reading (>120/80) during this emergency department visit, lab results, radiology results, the need for outpatient follow up, for definitive care, 09/18 15:39 Order name: Basic Metabolic Panel; Complete Time: 16:42 [facility] 09/18 15:39 Order name: CBC with Diff; Complete Time: 16:42 [facility] 09/18 15:39 Order name: D-Dimer; Complete Time: 16:42 [facility] 09/18 15:39 Order name: LFT's; Complete Time: 16:42 [facility] 09/18 15:39 Order name: Magnesium; Complete Time: 16:42 [facility] 09/18 15:39 Order name: NT PRO-BNP; Complete Time: 16:42 [facility] 09/18 15:39 Order name: PT-INR; Complete Time: 16:42 [facility] 09/18 15:39 Order name: Troponin HS; Complete Time: 16:42 [facility] 09/18 15:39 Order name: Urinalysis w/ reflexes; Complete Time: 17:45 [facility] 09/18 15:39 Order name: Lipase; Complete Time: 16:42 [facility] 09/18 16:44 Order name: Strep [facility] 09/18 16:44 Order name: Flu; Complete Time: 19:37 [facility] 09/18 16:44 Order name: SARS RAPID; Complete Time: 19:37 [facility] 09/18 17:48 Order name: Throat Culture EDMS 09/18 17:56 Order name: PREGU; Complete Time: 19:37 [facility] 09/18 15:39 Order name: XRAY Chest (1 view); Complete Time: 17:45 [facility] 09/18 16:44 Order name: CT Chest For PE Angio; Complete Time: 19:37 [facility] 09/18 15:39 Order name: EKG; Complete Time: 15:39 [facility] 09/18 15:39 Order name: Cardiac monitoring; Complete Time: 15:54 [facility] 09/18 15:39 Order name: EKG - Nurse/Tech; Complete Time: 15:54 [facility] 09/18 15:39 Order name: IV Saline Lock; Complete Time: 15:54 [facility] 09/18 15:39 Order name: Labs collected and sent; Complete Time: 15: [facility] 09/18 15:39 Order name: O2 Per Protocol; Complete Time: 15:55 [facility] 09/18 15:39 Order name: O2 Sat Monitoring; Complete Time: 15:55 [facility] EC:55 Rate is 76 beats/min. Rhythm is regular. QRS Grover is Normal. MS interval is normal. QRS marylu interval is normal. QT interval is normal. No Q waves. T waves are Normal. No ST changes noted. Clinical impression: NSR w/ Non-specific ST/T Changes and No evidence of ischemia. Interpreted by me. Reviewed by me. Administered Medications: 15:50 Drug: NS 0.9% IV 500 ml IV at bolus once Route: IV; Rate: bolus; Site: right nj1 antecubital; 19:45 Follow up: IV Status: Completed infusion; IV Intake: 500ml tm6 15:55 Not Given (already took at home prior to arrival): aspirinchewable tablet 324 mg PO nj1 once; 81 mg tablets x 4 19:45 Not Given (patient dischargedd): ns 0.9% 1000 ml IV at 125 ml/hr continuous tm6 Disposition Summary: 09/19/23 19:29 Discharge Ordered Notes: Location: Home marylu Problem: new marylu Symptoms: have improved marylu Condition: Stable marylu Diagnosis - Chest pain, unspecified marylu - Elevated white blood cell count marylu Followup: marylu - With: Private Physician - When: 2 - 3 days - Reason: Recheck today's complaints, Continuance of care, Re-evaluation by your physician Discharge Instructions: - Discharge Summary Sheet marylu - Nonspecific Chest Pain, Adult marylu - Chest Wall Pain, [id number] marylu - Nonspecific Chest Pain, Adult, [id number] marylu - Aspirin and Your Heart marylu Forms: - Medication Reconciliation Form marylu - Antibiotic Education marylu - Prescription Opioid Use marylu - Patient Portal Instructions marylu - Leadership Thank You Letter [facility] Prescriptions: - Ibuprofen 600 mg Oral Tablet - take 1 tablet ORAL route every 6 hours As needed take with food; 30 tablet; [facility] Refills: 0, Product Selection Permitted - Pepcid 20 mg Oral tablet - take 1 tablet ORAL route every 12 hours for 21 days; 42 tablet; Refills: 0, marylu Product Selection Permitted - Zithromax Z-Stefano 250 mg Oral Tablet - take 1 tablet ORAL route as directed for 5 days Day 1 - take two (2) tablets marylu one time. Day 2, 3, 4 , 5 take one (1) tablet once daily.; 6 tablet; Refills: 0, Product Selection Permitted Signatures: Dispatcher [employer] EDHernando Rodriguez MD MD cha Slawson, Ashby, RN RN as6 Sivan Lubin RN RN nj1 Marilin Gutiérrez RN tm6 Corrections: (The following items were deleted from the chart) 15:39 15:39 BASIC METABOLIC PANEL+C.LAB.BRZ ordered. EDMS EDMS 15:39 15:39 CBC+H.LAB.BRZ ordered. EDMS EDMS 15:39 15:39 D-DIMER+COAG.LAB.BRZ ordered. EDMS EDMS 15:39 15:39 HEPATIC FUNCTION+C.LAB.BRZ ordered. EDMS EDMS 15:39 15:39 MAGNESIUM+C.LAB.BRZ ordered. EDMS EDMS 15:39 15:39 PROBNP+C.LAB.BRZ ordered. EDMS EDMS 15:39 15:39 PROTIME (+INR)+COAG.LAB.BRZ ordered. EDMS EDMS 15:39 15:39 Troponin High Sensitivity+C.LAB.BRZ ordered. EDMS EDMS 15:39 15:39 Urinalysis+U.LAB.BRZ ordered. EDMS EDMS 15:39 15:39 LIPASE+C.LAB.BRZ ordered. EDMS EDMS 16:44 16:44 Group A Streptococcus Rapid Sc+BA.LAB.BRZ ordered. EDMS EDMS 16:44 16:44 Influenza Screen (A \T\ B)+BA.LAB.BRZ ordered. EDMS EDMS 16:44 16:44 SARS-COV-2 Antigen Rapid+I.LAB.BRZ ordered. EDMS EDMS
--- NOTE | 2023-09-19 19:30 | ER ---
Nurse's Notes [facility] Name: Anna Pizarro Age: 33 yrs Sex: Female : 1990 Arrival Date: 09/19/2023 Time: 15:30 Bed 4 Private MD: Diagnosis: Chest pain, unspecified;Elevated white blood cell count Presentation: 09/18 15:34 Chief complaint: Patient states: chest pressure for several days with worsening as6 pressure today. Coronavirus screen: At this time, the client does not indicate any symptoms associated with coronavirus-19. Ebola Screen: No symptoms or risks identified at this time. Initial Sepsis Screen: Does the patient meet any 2 criteria? No. Patient's initial sepsis screen is negative. Does the patient have a suspected source of infection? No. Patient's initial sepsis screen is negative. Risk Assessment: Do you want to hurt yourself or someone else? Patient reports no desire to harm self or others. Onset of symptoms was September 17, 2023. 15:34 Method Of Arrival: Ambulatory as6 15:34 Acuity: EDWIN 2 as6 Triage Assessment: 15:36 General: Appears in no apparent distress. Behavior is calm, cooperative. Pain: as6 Complains of pain in chest. 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 - Infectious Disease History:: Denies. - Social history:: Smoking status: Reported history of juuling and/or vaping. - Family history:: not pertinent. Screenin:[facility] ED Fall Risk Assessment (Adult) History of falling in the last 3 months, nj1 including since admission No falls in past 3 months (0 pts) Confusion or Disorientation No (0 pts) Intoxicated or Sedated No (0 pts) Impaired Gait No (0 pts) Mobility Assist Device Used No (0 pt) Altered Elimination No (0 pt) Score/Fall Risk Level 0 - 2 = Low Risk Oriented to surroundings, Maintained a safe environment, Hourly rounding (assess needs \T\ fall precautionary measures) done. Abuse screen: Denies threats or abuse. Denies injuries from another. Nutritional screening: No deficits noted. Tuberculosis screening: No symptoms or risk factors identified. Assessment: 15:45 General: Appears in no apparent distress. comfortable, Behavior is calm, cooperative, nj1 appropriate for age. 15:45 Pain: Complains of pain in chest Pain currently is 8 out of 10 on a pain scale. Pain: nj1 Aggravated by Deep breathing. Neuro: Level of Consciousness is awake, alert, obeys commands, Oriented to person, place, time, situation. Cardiovascular: Reports chest pain, Patient's skin is warm and dry. Respiratory: Reports pain with respiration Airway is patent Respiratory effort is even, unlabored, Denies shortness of breath. 16:47 Reassessment: Patient appears in no apparent distress at this time. No changes from nj1 previously documented assessment. Patient and/or family updated on plan of care and expected duration. Pain level reassessed. Patient is alert, oriented x 3, equal unlabored respirations, skin warm/dry/pink. 18:03 Reassessment: Patient appears in no apparent distress at this time. Patient and/or nj1 family updated on plan of care and expected duration. Pain level reassessed. Patient is alert, oriented x 3, equal unlabored respirations, skin warm/dry/pink. 19:52 Reassessment: No changes from previously documented assessment. Patient and/or family tm6 updated on plan of care and expected duration. Pain level reassessed. Patient is alert, oriented x 3, equal unlabored respirations, skin warm/dry/pink. Vital Signs: 15:34 BP 115 / 78; Pulse 77; Resp 18; Temp 97.6; Pulse Ox 100% ; Weight 90.72 kg; Height 5 as6 ft. 0 in. ; Pain 8/10; 16:00 BP 131 / 87; Pulse 69; Resp 17; Pulse Ox 98% ; nj1 16:45 BP 111 / 80; Pulse 71; Resp 17; Pulse Ox 97% ; nj1 18:00 BP 116 / 74; Pulse 64; Resp 15; Pulse Ox 96% ; nj1 19:52 BP 117 / 83; Pulse 78; Resp 22; Temp 97.8(TE); Pulse Ox 99% on R/A; Pain 0/10; tm6 15:34 Body Mass Index 39.06 (90.72 kg, 152.4 cm) as6 15:34 Pain Scale: Adult as6 19:52 Pain Scale: Adult tm6 ED Course: 15:33 Patient arrived in ED. mg5 15:36 Triage completed. as6 15:36 Arm band placed on. as6 15:37 Hernando Perry MD is Attending Physician. marylu 15:40 Sivan Lubin, RN is Primary Nurse. nj1 15:50 Client placed on continuous cardiac and pulse oximetry monitoring. NIBP monitoring nj1 applied. ekg monitor tech on. 15:50 Patient has correct armband on for positive identification. Bed in low position. Call nj1 light in reach. Provided Education on: call light, fall precautions. 15:50 Inserted saline lock: 20 gauge in right antecubital area, using aseptic technique. nj1 Blood collected. 16:12 XRAY Chest (1 view) In Process Unspecified. EDMS 18:32 CT Chest For PE Angio In Process Unspecified. EDMS 19:52 No provider procedures requiring assistance completed. IV discontinued, intact, tm6 bleeding controlled, No redness/swelling at site. Pressure dressing applied. Administered Medications: 15:50 Drug: NS 0.9% IV 500 ml IV at bolus once Route: IV; Rate: bolus; Site: right nj1 antecubital; 19:45 Follow up: IV Status: Completed infusion; IV Intake: 500ml tm6 15:55 Not Given (already took at home prior to arrival): aspirinchewable tablet 324 mg PO nj1 once; 81 mg tablets x 4 19:45 Not Given (patient dischargedd): ns 0.9% 1000 ml IV at 125 ml/hr continuous tm6 Medication: 19:53 VIS not applicable for this client. tm6 Intake: 19:45 IV: 500ml; Total: 500ml. tm6 Outcome: 19:29 Discharge ordered by . marylu 19:53 Discharged to home ambulatory, tm6 19:53 Condition: stable 19:53 Discharge instructions given to patient, Instructed on discharge instructions, follow up and referral plans. medication usage, Demonstrated understanding of instructions, follow-up care, medications, Prescriptions given X 3, 19:53 Patient left the ED. tm6 Signatures: Dispatcher [employer] EDPA Hernando Perry MD MD cha Slawson, Ashby, RN RN as6 Sivan Lubin RN RN nj1 Kelley Montano mg5 Marilin Gutiérrez RN RN tm6 Corrections: (The following items were deleted from the chart) 18:06 18:00 Pulse 64bpm; Resp 15bpm; Pulse Ox 96%; nj1 nj1
[2023-09-19 20:14] VITALS: BP 117/83; TEMP 97.8; O2SAT 99
--- NOTE | 2023-09-20 13:55 | EKG ---
Test Date: 2023-09-19 Test Time: 15:43:25 Curb And Gutter Laborer: MEASUREMENT RESULTS: Intervals: Rate: 76 RI: 156 QRSD: 96 QT: 390 QTc: 438 Parker: P: 55 RI: 156 QRS: 25 T: 14 INTERPRETIVE STATEMENTS: Normal sinus rhythm Incomplete right bundle branch block Borderline ECG Compared to ECG 08/14/2023 16:19:03 Incomplete right bundle-branch block now present Sinus arrhythmia no longer present Electronically Signed On 09-20-23 13:53:29 CDT by David Vallejo
== END 2023-09-19 19:53 | disposition home or self-care (01) ==
LOC: ER 15:30
DX: R07.89 Other chest pain (principal); D72.829 Elevated white blood cell count, unspecified
CPT/HCPCS: 36415; 71045; 71275; 80048; 80076; 81001; 81025; 83690; 83735; 83880; 84484; 85025; 85379; 85610; 87070; 87081; 87804; 87811; 93005; 96360; 96361; 99285; J7040; Q9967

== ENCOUNTER 2024-06-13 11:55 | Emergency (ER) | payer OTHER, SELFPAY ==
--- OUTSIDE RECORDS SUMMARY | 2024-06-13 12:00 | XMS REPORT | Continuity of Care Document ---
Author Name Unknown Address [address] [facility]. [address] [place] [address] [facility] thconnect Address [address] [facility] [address] [place] [address] Care Team Providers Care Mortgage Manager Name Role Phone Rhonda Shelton Primary Care Physician AUTUMN ALVAREZ Attending Clinician Unavailable ROSIO MILLER Attending Clinician Unavaila LADAN Gordillo Attending Clinician Unavail able Lab, Ang-Rmchp Attending Clinician Unavailable Ladan Mayberry Attending Clinician + SHALONDA PENN Attending Clinician Unavailable Shalonda Hoover Attending Clinician Rosio Miller CNM Attending Clinician [phone] Antonio Autumn HER Attending Clinician MARYBETH MCKEON Attending Clinician Unavailab Marybeth Foster DO Attending Clinician [phone] EILEEN GEORGES Attending Clinician Unavailable EILEEN GEORGES Attending Clinician Unavailable SHER BOWDEN Attending Clinician Unavailable NORMA NEIL Attending Clinician Unavailable Norma Neil NP Attending Clinician Carley Packer Attending Clinician Unavaila ble Lab, Ang - Db Attending Clinician Unavailable SCOTT CARDENAS Attending Clinician Unavailab dale Cardenas KEY HOLDER, Scott Attending Clinician [phone] LILA ACUNA Attending Clinician Unavailable LILA ACUNA Attending Clinician Unavailable Pia KEY HOLDERLila Attending Clinician [phone] KEY ANDERSON Attending Clinician Unavailable KEY ANDERSON Attending Clinician Unavailable Porfirio DOKey Attending Clinician [phone] BLAIR SOLO Attending Clinician Unavailable Doctor Unassigned, [place] Attending Clinician U MARILYN Choi Attending Clinician Unavailable OVALLESNICCI Attending Clinician Unavailable Ovalles PAC, Nicci S Attending Clinician [phone] MYA RATLIFF Attending Clinician Unavailab Mya Lewis DO Attending Clinician [phone] [facility]ane [facility] Attending Clinician UnaBECCA Alicea Attending Clinician Unavailable Provider, Ang [facility] Attending Clinician Unavailable Roly VITALPBecca Attending Clinician [phone] EDI GRAY Attending Clinician Unavailable AUTUMN ALVAREZ Admitting Clinician Unavailable SHALONDA PENN Admitting Clinician Unavailable SCOTT CARDENAS Admitting Clinician Unavailab KEY Corea Admitting Clinician Unavailable MARILYN BOWERS Admitting Clinician Unavailable EDI GRAY Admitting Clinician Unavailable Payers Payer Name Policy Type Policy Number Effective Date Expirati on Date Source MEDICAID PENDING PENDING 2024 00:00:00 [facility] [id number] 2024 00:00:00 2024 00:00:00 Problems Condition Name Condition Details Condition Category Status Onset Date Resolution Date Last Treatment Date Treating Clinician Comments Source BMI 33.0-33.9, adult BMI 33.0-33.9, adult Disease Active 06-10 00:00: 00 [facility] 8 weeks gestation of 8 weeks gestation of Disease Active 06-10 00:00: 00 [facility] Type 2 diabetes mellitus without complicati on, without long-term current use of insulin Type 2 diabetes mellitus without complicati on, without long-term current use of insulin Disease Active 2-20 00:00: 00 [facility] Supervisio n of high-risk Supervisio n of high-risk Disease Active 2-18 00:00: 00 [facility] Vaginal bleeding during Vaginal bleeding during Disease Active 2-18 00:00: 00 [facility] Subchorion ic hematoma, antepartum Subchorion ic hematoma, antepartum Disease Active 18 00:00: 00 [facility] Splenic lesion Splenic lesion Disease Active 2023-04 00:00: 00 [facility] Type 2 diabetes mellitus without complicati on, without long-term current use of insulin Type 2 diabetes mellitus without complicati on, without long-term current use of insulin Disease Active 2023-04 00:00: 00 [facility] Type 2 diabetes mellitus affecting , antepartum Type 2 diabetes mellitus affecting , antepartum Disease Active 2023-04 00:00: 00 [facility] Generalize d abdominal pain Generalize d abdominal pain Disease Active 2023-04 0-15 00:00: 00 [facility] Chronic migraine without aura without status migrainosu s, not intractabl e Chronic migraine without aura without status migrainosu s, not intractabl e Disease Active 6-29 00:00: 00 [facility] Nicotine dependence with current use Nicotine dependence with current use Disease Active 11-06 00:00: 00 Overview: Formattin g of this note might be different from the original. 1 pack per day since 16 years old (10 pack-year as of 11/05) [facility] Nicotine dependence with current use Nicotine dependence with current use Disease Active 11-06 00:00: 00 Overview: Formattin g of this note might be different from the original. 1 pack per day since 16 years old (10 pack-year as of 11/05) [facility] Chronic fatigue Chronic fatigue Disease Active 11-06 00:00: 00 Overview: Formattin g of this note might be different from the original. Will be evaluated by GI in 11/2016 for associate d bowel issues and then hematolog y [facility] Generalize d anxiety disorder Generalize d anxiety disorder Disease Active 09-02 00:00: 00 [facility] Anxiety in , antepartum Anxiety in , antepartum Disease Active 09-02 00:00: 00 [facility] Obesity (BMI 30-39.9) Obesity (BMI 30-39.9) Disease Active 06-27 00:00: 00 [facility] Obesity in Obesity in Disease Active 06-27 00:00: 00 [facility] LUQ pain LUQ pain Disease Resolve d 2023-04 2-04 00:00: 00 2024-06-08 00:00:00 2024-06-08 08:04:03 [facility] Heartburn Heartburn Disease Resolve d 2023-04 2-04 00:00: 00 2024-06-08 00:00:00 2024-06-08 08:04:04 [facility] Nausea Nausea Disease Resolve d 2023-04 2-04 00:00: 00 2024-06-08 00:00:00 2024-06-08 08:02:23 [facility] Abnormal CT scan, stomach Abnormal CT scan, stomach Disease Resolve d 2023-04 1-19 00:00: 00 2024-06-08 00:00:00 2024-06-08 08:02:35 [facility] Other constipati on Other constipati on Disease Resolve d 2023-04 0-15 00:00: 00 2024-06-08 00:00:00 2024-06-08 08:04:00 [facility] Dental caries Dental caries Disease Resolve d 6-29 00:00: 00 2024-06-08 00:00:00 2024-06-08 08:07:10 [facility] Abdominal pain, chronic, left lower quadrant Abdominal pain, chronic, left lower quadrant Disease Resolve d 5- 00:00: 00 2024-06-08 00:00:00 2024-06-08 08:02:34 [facility] Leukocytos is Leukocytos is Disease Resolve d 5-01 00:00: 00 2024-06-08 00:00:00 2024-06-08 08:06:53 [facility] Enteritis Enteritis Disease Resolve d 2023-04 0-15 00:00: 00 2024-06-02 00:00:00 2024-06-02 20:32:54 [facility] Subacute maxillary sinusitis Subacute maxillary sinusitis Disease Resolve d 6- 00:00: 00 2024-06-02 00:00:00 2024-06-02 20:32:58 [facility] Allergies, Adverse Reactions, Alerts Allergy Name Allergy Type Status Severity Reaction(s) Onset Date Inactive Date Treating Clinician Comments Source levoflox acin Propensi ty to adverse reaction to drug Active 09-29 00:00: 00 Satnam Terrie Enrique LEVOFLOX ACIN DRUG INGREDI Active Other-Cmnt 6-04 00:00: 00 [facility] Levoflox acin Propensi ty to adverse reaction s Active Other - See comments 09-22 00:00: 00 Joint pain [facility] Levaquin - Oral Propensi ty to adverse reaction to drug Active 3-24 00:00: 00 Satnam Terrie Enrique Metronid azole Propensi ty to adverse reaction s Active Dizziness 3-20 00:00: 00 [facility] METRONID AZOLE DRUG INGREDI Active Dizziness 3-20 00:00: 00 [facility] Social History Social Habit Start Date Stop Date Quantity Comments Source ASSERTION 2024-04-26 00:00:00 [facility] of tobacco use Cigarette Smoker [facility] Alcoholic beverage intake 2024-06-09 00:00:00 2024-06-09 00:00:00 0 /d [facility] Tobacco use and exposure 2024-06-08 00:00:00 2024-06-08 00:00:00 Smokeless tobacco non-user [facility] Tobacco Comment 2024-03-10 00:00:2024-03-10 00:00:00 vapes [facility] History of Social function 2024-03-09 00:00:00 2024-03-09 00:00:00 [facility] Exposure to SARS-CoV-2 (event) 2022-06-05 00:00:00 2022-06-15 16:45:00 Not sure [facility] Alcohol intake 2022-05-27 00:00:00 2022-05-27 00:00:00 0 /d [facility] Sex assigned at 1990 00:00:00 1990 00:00:00 [facility] Smoking Status Start Date Stop Date Source Ex-smoker 2024-06-08 00:00:00 2024-06-08 00:00:00 [facility] Smokes tobacco daily 2024-03-10 00:00:00 [facility] Medications Ordered Medication Name Filled Medication Name Start Date Stop Date Current Medication? Ordering Clinician Indication Dosage Frequency Signature (SIG) Comments Components Source clindamycin 300 mg capsule 06-01 00:00: 00 Yes [id number] 300mg Take 1 capsule by mouth in the morning and 1 capsule in the evening. [facility] proMETHazin e 25 mg tablet 06-01 00:00: 00 Yes [id number] 25mg Take 1 tablet by mouth every 24 (twenty-fo ur) hours as needed for Nausea and Vomiting (N/V). [facility] metFORMIN 1,000 mg 24 hr tablet 05-03 00:00: 00 Yes [id number] 1000mg Take 1 tablet by mouth daily with breakfast. [facility] gadobenate dimeglumine (MULTIHANCE -15 mL) injection 15.74 mL 2023-04 23:15: 00 03-15 23:09 :00 No [id number] .2mL/kg 15.74 mL (0.2 mL/kg ?78.7 kg), Intravenou s, ONCE, 1 dose, On Fri03/15/24 at 1715, Routine [facility] rizatriptan 5 mg disintegrat ing tablet 2023-04 00:00: 00 Yes [id number] 5mg Take 1 tablet by mouth as needed for Migraine. May repeat in 2 hours if needed [facility] lisinopriL 2.5 mg tablet 2023-04 00:00: 00 06-02 00:00 :00 No [id number] 2.5mg Take 1 tablet by mouth in the morning. [facility] metFORMIN 1,000 mg 24 hr tablet 2023-04 00:00: 00 04-21 00:00 :00 No [id number] 1000mg Take 1 tablet by mouth daily with breakfast. [facility] metFORMIN 1,000 mg 24 hr tablet 2023-04 00:00: 00 03-10 00:00 :00 No [id number] 1000mg Take 1 tablet by mouth daily with breakfast. [facility] lisinopriL 2.5 mg tablet 2023-04 00:00: 00 03-10 00:00 :00 No [id number] 2.5mg Take 1 tablet by mouth in the morning. [facility] rizatriptan 5 mg disintegrat ing tablet 2023-04 00:00: 00 03-10 00:00 :00 No [id number] 5mg Take 1 tablet by mouth as needed for Migraine. May repeat in 2 hours if needed [facility] ketorolac (TORADOL) injection 15 mg 2023-04 23:00: 00 02-02 22:43 :00 No 15mg 15 mg, Slow IV Push, ONCE, 1 dose, On Fri02/03/24 at 1800, Routine [facility] glycerin/mi neral oil (AGLO ENEMA) (COMPOUNDED ) Enem 225 mL 2023-04 23:00: 00 02-02 22:38 :00 No 225mL 225 mL, Rectal, ONCE, 1 dose, On Fri02/03/24 at 1800, Routine [facility] iopamidol (ISOVUE 370-500 mL) injection 100 mL 2023-04 21:45: 00 02-02 21:45 :00 No [id number] 100mL 100 mL, Intravenou s, ONCE, 1 dose, On Fri02/03/24 at 1645, [facility] ondansetron (ZOFRAN (PF)) injection 4 mg 2023-04 015 20:30: 00 02-02 20:36 :00 No 4mg 4 mg, Slow IV Push, ONCE, 1 dose, On Fri02/03/24 at 1530, [facility] NaCl 0.9% (NS) bolus infusion 1,000 mL 12-26 22:30: 00 12-26 23:31 :00 No 1000mL at 999 mL/hr, 1,000 mL, IV Infusion, ONCE, 1 dose, On Fri12/27/23 at 1730, [facility] metformin ER 1,000 mg tablet,exte nded release 24hr (osmotic) 12-18 00:00: 00 Yes 1mg Satnam Enrique amoxicillin 500 mg capsule 18 00:00: 00 Yes 1mg Satnam Enrique metformin 500 mg tablet 16 00:00: 00 Yes 1mg Satnam Enrique atorvastati n 40 mg tablet 12-04 00:00: 00 Yes 1mg Satnam Enrique diclofenac sodium 75 mg tablet,diamond yed release 12-02 00:00: 00 Yes 1mg Satnam Enrique tizanidine 4 mg tablet 12-02 00:00: 00 Yes 1mg Satnam Enrique NaCl 0.9% (NS) bolus infusion 1,000 mL 11-30 17:45: 00 11-30 21:32 :00 No 1000mL at 999 mL/hr, 1,000 mL, IV Infusion, ONCE, 1 dose, On Fri12/01/23 at 1245, [facility] diphenhydrA MINE (BENADRYL) injection 25 mg 11-30 17:30: 00 11-30 18:48 :00 No 25mg 25 mg, Slow IV Push, ONCE, 1 dose, On Fri12/01/23 at 1230, STAT [facility] metoclopram elaina HCl (REGLAN) injection 10 mg 11-30 17:30: 00 11-30 18:48 :00 No 10mg 10 mg, Slow IV Push, ONCE, 1 dose, On Fri12/01/23 at 1230, YO [facility] magnesium sulfate in water 2 gram/50 mL (4 %) infusion 2 g 11-30 17:21: 00 11-30 19:19 :00 No 2g 2 g, IV Piggyback, Administer over 30 Minutes, ONCE, 1 dose, On Fri12/01/23 at 1230, YO [facility] aspirin tablet 325 mg 09-22 18:15: 00 09-22 18:40 :00 No 325mg 325 mg, Oral, ONCE, 1 dose, On Fri09/23/23 at 1315, STAT [facility] sodium chloride (NS) injection 5 mL 09-22 18:13: 30 Yes 5mL 5 mL, Intravenou s, PRN, Starting on Fri09/23/23 at 1313, Until Discontinu ed, Routine, IV line flushing [facility] ketorolac 10 mg tablet 09-22 00:00: 00 Yes mg Satnam Enrique cyclobenzap rine 5 mg tablet 09-22 00:00: 00 Yes mg Satnam Enrique cyclobenzap rine 5 mg tablet 09-22 00:00: 00 03-09 00:00 :00 No [id number] 5mg Take 1 tablet by mouth in the morning and 1 tablet at noon and 1 tablet in the evening. [facility] ketorolac 10 mg tablet 09-22 00:00: 00 03-09 00:00 :00 No [id number] 10mg Take 1 tablet by mouth every 6 (six) hours as needed for Pain (scale 7-10) for up to 15 doses. [facility] azithromyci n 250 mg tablet 09-19 00:00: 00 Yes mg Satnam Enrique sulfamethox azole 800 mg-trimetho prim 160 mg tablet 09-29 00:00: 00 Yes mg Satnam Enrique doxycycline hyclate 100 mg tablet 09-29 00:00: 00 Yes mg Satnam Enrique TAKE 1 TABLET TWICE DAILY. -24 00:00: 00 Yes [id number] Satnam Enrique TAKE 1 TABLET BY MOUTH EVERY 12 HOURS NEEDED 07-11 00:00: 00 Yes Satnam Enrique TAKE 1 TABLET BY MOUTH EVERY 6 HOURS. DO NOT EXCEED 8 TABLETS A DAY 07-10 00:00: 00 Yes Satnam Enrique TAKE 1 TABLET BY MOUTH EVERY 12 HOURS 07-04 00:00: 00 Yes Satnam Enrique TAKE 3 CAPSULES BY MOUTH IN THE MORNING AND 3 AT NOON AND 3 IN THE EVENING FOR 10 DAYS 05-27 00:00: 00 Yes Satnam Enrique clindamycin 150 mg capsule - 00:00: 00 06-07 05:59 :00 No [id number] 450mg Take 3 capsules by mouth in the morning and 3 capsules at noon and 3 capsules in the evening. Do all this for 10 days. [facility] TAKE 1 CAPSULE BY MOUTH EVERY 6 HOURS FOR 10 DAYS 12-30 00:00: 00 Yes Satnam Enrique TAKE 1 TABLET BY MOUTH EVERY 12 HOURS FOR 10 DAYS 11-29 00:00: 00 07-19 00:00 :00 No Satnam Enrique HYDROcodone -acetaminop hen (NORCO 5) 5-325 mg tablet 1 tablet 10-04 17:00: 00 10-04 15:52 :00 No 1{tbl} 1 tablet, Oral, ONCE, 1 dose, On Adore 10/04/21 at 1200, YO [facility] benzonatate 100 mg capsule 2020-04 00:00: 00 03-09 00:00 :00 No [id number] 100mg Take 1 capsule by mouth 3 (three) times daily as needed for Cough. [facility] albuterol 90 mcg/actuati on inhaler 2020-04 00:00: 03-09 00:00 :00 No [id number] 2{puff} Inhale 2 Puffs every 4 (four) hours as needed for Wheezing or Shortness of Breath. [facility] bromphenira mine-pseudo ephedrine-D M (BROMFED DM) 2-30-10 mg/5 mL syrup 2020-04 0-26 00:00: 00 02-24 04:59 :00 No [id number] 5mL Take 5 mL by mouth 4 (four) times daily as needed for Congestion /Allergies or Cough for up to 10 days. [facility] nicotine 14 mg/24 hr patch 10-17 00:00: 00 03-09 00:00 :00 No [id number] 1{patch } Apply 1 Patch to area(s) every 24 (twenty-fo ur) hours. Apply 21mg patch daily x 6 weeks; then apply 14mf patch daily x 2 weeks; then apply 7mg patch daily x 2 weeks. Stop smoking on initiation of therapy [facility] nicotine 21 mg/24 hr patch 10-17 00:00: 03-09 00:00 :00 No [id number] 1{patch } Apply 1 Patch to area(s) daily. Apply 21mg patch daily x 6 weeks; then apply 14mf patch daily x 2 weeks; then apply 7mg patch daily x 2 weeks. Stop smoking on initiation of therapy [facility] nicotine 7 mg/24 hr patch 10-17 00:00: 03-09 00:00 :00 No [id number] 1{patch } Apply 1 Patch to area(s) every 24 (twenty-fo ur) hours. Apply 21mg patch daily x 6 weeks; then apply 14mf patch daily x 2 weeks; then apply 7mg patch daily x 2 weeks. Stop smoking on initiation of therapy [facility] fluticasone propionate 50 mcg/actuati on nasal spray 10-17 00:00: 00 03-09 00:00 :00 No [id number] 1{spray } Use 1 [place] in each nostril daily. [facility] butalbital- aspirin-caf feine 50-325-40 mg per capsule 10-17 00:00: 00 09-22 00:00 :00 No [id number] 1{capsu le} Take 1 capsule by mouth every 6 (six) hours as needed for Pain (Migraine MORGAN). [facility] amoxicillin -clavulanat e (AUGMENTIN) 875-125 mg per tablet 10-17 00:00: 00 05-27 00:00 :00 No [id number] 1{tbl} Take 1 tablet by mouth 2 (two) times daily. [facility] Immunizations Ordered Immunization Name Filled Immunization Name Date Status Comments Source TD Pres-Free 2022-06-15 00:00:00 Completed [facility] TD Pres-Free 2022-06-15 00:00:00 Completed [facility] TD Pres-Free Unknown Completed [facility] TD Pres-Free Unknown Completed [facility] TD Pres-Free Unknown Completed [facility] TD Pres-Free Unknown Completed [facility] TD Pres-Free Unknown Completed [facility] Vital Signs Vital Name Observation Time Observation Value Comments S ource Systolic blood pressure 2024-06-09 20:32:00 121 mm[Hg] [facility] Diastolic blood pressure 2024-06-09 20:32:00 81 mm[Hg] [facility] Heart rate 2024-06-09 20:32:00 71 /min [facility] Body temperature 2024-06-09 20:32:00 36.44 Qi [facility] Respiratory rate 2024-06-09 20:32:00 18 /min [facility] Body height 2024-06-09 20:32:00 152.4 cm [facility] Body weight 2024-06-09 20:32:00 76.658 kg [facility] BMI 2024-06-09 20:32:00 33.01 kg/m2 [facility] Oxygen saturation in Arterial blood by Pulse oximetry 2024-06-09 20:32:00 98 /min [facility] Systolic blood pressure 2024-06-08 13:29:00 126 mm[Hg] [facility] Diastolic blood pressure 2024-06-08 13:29:00 75 mm[Hg] [facility] Heart rate 2024-06-08 13:29:00 82 /min [facility] Body temperature 2024-06-08 13:29:00 36.28 Qi [facility] Respiratory rate 2024-06-08 13:29:00 18 /min [facility] Body height 2024-06-08 13:29:00 152.4 cm [facility] Body weight 2024-06-08 13:29:00 78.291 kg [facility] BMI 2024-06-08 13:29:00 33.71 kg/m2 [facility] Systolic blood pressure 2024-06-06 18:25:00 118 mm[Hg] [facility] Diastolic blood pressure 2024-06-06 18:25:00 71 mm[Hg] [facility] Heart rate 2024-06-06 18:25:00 98 /min [facility] Body temperature 2024-06-06 18:25:00 36.78 Qi [facility] Respiratory rate 2024-06-06 18:25:00 16 /min [facility] Oxygen saturation in Arterial blood by Pulse oximetry 2024-06-06 18:25:00 98 /min [facility] Body height 2024-06-06 18:22:00 152.4 cm [facility] Body weight 2024-06-06 18:22:00 76.658 kg [facility] BMI 2024-06-06 18:22:00 33.01 kg/m2 [facility] Systolic blood pressure 2024-05-31 19:38:00 121 mm[Hg] [facility] Diastolic blood pressure 2024-05-31 19:38:00 74 mm[Hg] [facility] Heart rate 2024-05-31 19:38:00 79 /min [facility] Body temperature 2024-05-31 19:38:00 36.5 Qi [facility] Respiratory rate 2024-05-31 19:38:00 17 /min [facility] Body height 2024-05-31 19:38:00 152.4 cm [facility] Body weight 2024-05-31 19:38:00 77.52 kg [facility] BMI 2024-05-31 19:38:00 33.38 kg/m2 [facility] Systolic blood pressure 2024-03-24 19:59:00 116 mm[Hg] [facility] Diastolic blood pressure 2024-03-24 19:59:00 74 mm[Hg] [facility] Heart rate 2024-03-24 19:59:00 87 /min [facility] Body temperature 2024-03-24 19:59:00 36.72 Qi [facility] Body height 2024-03-24 19:59:00 152.4 cm [facility] Body weight 2024-03-24 19:59:00 78.019 kg [facility] BMI 2024-03-24 19:59:00 33.59 kg/m2 [facility] Oxygen saturation in Arterial blood by Pulse oximetry 2024-03-24 19:59:00 99 /min [facility] Systolic blood pressure 2024-03-10 17:19:00 102 mm[Hg] [facility] Diastolic blood pressure 2024-03-10 17:19:00 72 mm[Hg] [facility] Heart rate 2024-03-10 17:19:00 84 /min [facility] Body temperature 2024-03-10 17:19:00 36.17 Qi [facility] Respiratory rate 2024-03-10 17:19:00 18 /min [facility] Body height 2024-03-10 17:19:00 152.4 cm [facility] Body weight 2024-03-10 17:19:00 78.654 kg [facility] BMI 2024-03-10 17:19:00 33.86 kg/m2 [facility] Systolic blood pressure 2024-03-09 20:58:00 117 mm[Hg] [facility] Diastolic blood pressure 2024-03-09 20:58:00 79 mm[Hg] [facility] Heart rate 2024-03-09 20:58:00 82 /min [facility] Body temperature 2024-03-09 20:58:00 37.11 Qi [facility] Respiratory rate 2024-03-09 20:58:00 18 /min [facility] Body height 2024-03-09 20:58:00 152.4 cm [facility] Body weight 2024-03-09 20:58:00 79.153 kg [facility] BMI 2024-03-09 20:58:00 34.08 kg/m2 [facility] Oxygen saturation in Arterial blood by Pulse oximetry 2024-03-09 20:58:00 98 /min [facility] Systolic blood pressure 2024-02-03 23:30:00 121 mm[Hg] [facility] Diastolic blood pressure 2024-02-03 23:30:00 84 mm[Hg] [facility] Heart rate 2024-02-03 23:30:00 77 /min [facility] Body temperature 2024-02-03 23:30:00 [facility]11 [facility] [facility] Respiratory rate 2024-02-03 23:30:00 16 /min [facility] Oxygen saturation in Arterial blood by Pulse oximetry 2024-02-03 23:30:00 100 /min [facility] Body height 2024-02-03 20:17:00 152.4 cm [facility] Body weight 2024-02-03 20:17:00 80.922 kg [facility] BMI 2024-02-03 20:17:00 34.84 kg/m2 [facility] Systolic blood pressure 2023-12-27 23:34:00 108 mm[Hg] [facility] Diastolic blood pressure 2023-12-27 23:34:00 75 mm[Hg] [facility] Heart rate 2023-12-27 23:34:00 75 /min Un[facility] Body temperature 2023-12-27 23:34:00 37.06 Qi [facility] Respiratory rate 2023-12-27 23:34:00 12 /min [facility] Oxygen saturation in Arterial blood by Pulse oximetry 2023-12-27 23:34:00 99 /min [facility] Body height 2023-12-27 21:29:00 152.4 cm [facility] Body weight 2023-12-27 21:29:00 83.915 kg [facility] BMI 2023-12-27 21:29:00 36.13 kg/m2 [facility] Systolic blood pressure 2023-12-17 03:59:00 140 mm[Hg] [facility] Diastolic blood pressure 2023-12-17 03:59:00 98 mm[Hg] [facility] Heart rate 2023-12-17 03:59:00 70 /min Unive [facility] Body temperature 2023-12-17 03:59:00 37.11 [facility] Respiratory rate 2023-12-17 03:59:00 16 /min [facility] Body height 2023-12-17 03:59:00 152.4 cm [facility] Body weight 2023-12-17 03:59:00 88.451 kg [facility] BMI 2023-12-17 03:59:00 38.08 kg/m2 [facility] Oxygen saturation in Arterial blood by Pulse oximetry 2023-12-17 03:59:00 100 /min [facility] Systolic blood pressure 2023-12-01 21:36:00 113 mm[Hg] [facility] Diastolic blood pressure 2023-12-01 21:36:00 74 mm[Hg] [facility] Heart rate 2023-12-01 21:36:00 69 /min Un[facility] Body temperature 2023-12-01 21:36:00 36.67 Qi [facility] Respiratory rate 2023-12-01 21:36:00 16 /min [facility] Oxygen saturation in Arterial blood by Pulse oximetry 2023-12-01 21:36:00 99 /min [facility] Body height 2023-12-01 17:03:00 152.4 cm Univ [facility] Body weight 2023-12-01 17:03:00 90.719 kg [facility] BMI 2023-12-01 17:03:00 39.06 kg/m2 [facility] Heart rate 2023-09-23 20:26:00 72 /min Un[facility] Body temperature 2023-09-23 20:26:00 36.33 Qi [facility] Respiratory rate 2023-09-23 20:26:00 17 /min [facility] Oxygen saturation in Arterial blood by Pulse oximetry 2023-09-23 20:26:00 100 /min [facility] Systolic blood pressure 2023-09-23 20:00:00 117 mm[Hg] [facility] Diastolic blood pressure 2023-09-23 20:00:00 83 mm[Hg] [facility] Body height 2023-09-23 17:46:00 152.4 cm [facility] Body weight 2023-09-23 17:46:00 87.544 kg [facility] BMI 2023-09-23 17:46:00 37.69 kg/m2 [facility] Systolic blood pressure 2022-06-15 23:02:35 124 mm[Hg] [facility] Diastolic blood pressure 2022-06-15 23:02:35 81 mm[Hg] [facility] Heart rate 2022-06-15 23:02:35 97 /min [facility] Body temperature 2022-06-15 23:02:35 37.22 Qi [facility] Respiratory rate 2022-06-15 23:02:35 16 /min [facility] Oxygen saturation in Arterial blood by Pulse oximetry 2022-06-15 23:02:35 98 /min [facility] Body height 2022-06-15 22:47:00 165.1 cm [facility] Body weight 2022-06-15 22:47:00 92.987 kg [facility] BMI 2022-06-15 22:47:00 34.11 kg/m2 [facility] Systolic blood pressure 2022-05-28 00:34:00 147 mm[Hg] [facility] Diastolic blood pressure 2022-05-28 00:34:00 87 mm[Hg] [facility] Heart rate 2022-05-28 00:34:00 107 /min Un[facility] Body temperature 2022-05-28 00:34:00 37.11 Qi [facility] Respiratory rate 2022-05-28 00:34:00 20 /min [facility] Body height 2022-05-28 00:34:00 152.4 cm [facility] Body weight 2022-05-28 00:34:00 83.915 kg Univ [facility] BMI 2022-05-28 00:34:00 36.13 kg/m2 [facility] Oxygen saturation in Arterial blood by Pulse oximetry 2022-05-28 00:34:00 99 /min [facility] Systolic blood pressure 2021-10-04 17:39:00 120 mm[Hg] [facility] Diastolic blood pressure 2021-10-04 17:39:00 80 mm[Hg] [facility] Heart rate 2021-10-04 17:39:00 73 /min Unive [facility] Respiratory rate 2021-10-04 17:39:00 18 /min [facility] Oxygen saturation in Arterial blood by Pulse oximetry 2021-10-04 17:39:00 97 /min [facility] Body temperature 2021-10-04 15:46:00 37.5 Qi [facility] Body height 2021-10-04 15:46:00 152.4 cm [facility] Body weight 2021-10-04 15:46:00 81.647 kg Univ [facility] BMI 2021-10-04 15:46:00 35.15 kg/m2 [facility] Body height 2021-02-16 02:18:00 152.4 cm [facility] Body weight 2021-02-16 02:18:00 90.266 kg [facility] BMI 2021-02-16 02:18:00 38.86 kg/m2 [facility] Oxygen saturation in Arterial blood by Pulse oximetry 2021-02-16 02:18:00 99 /min [facility] Systolic blood pressure 2021-02-16 02:18:00 131 mm[Hg] [facility] Diastolic blood pressure 2021-02-16 02:18:00 81 mm[Hg] [facility] Heart rate 2021-02-16 02:18:00 99 /min [facility] Body temperature 2021-02-16 02:18:00 37.22 Qi [facility] Respiratory rate 2021-02-16 02:18:00 18 /min [facility] Systolic blood pressure 2021-02-13 14:34:00 125 mm[Hg] [facility] Diastolic blood pressure 2021-02-13 14:34:00 74 mm[Hg] [facility] Heart rate 2021-02-13 14:34:00 103 /min [facility] Body temperature 2021-02-13 14:34:00 37.56 Qi [facility] Respiratory rate 2021-02-13 14:34:00 18 /min [facility] Body height 2021-02-13 14:34:00 152.4 cm [facility] Body weight 2021-02-13 14:34:00 90.674 kg [facility] BMI 2021-02-13 14:34:00 39.04 kg/m2 [facility] Oxygen saturation in Arterial blood by Pulse oximetry 2021-02-13 14:34:00 98 /min [facility] BP Systolic 2023-12-19 09:38:00 111 mm[Hg] Lazaro Enrique BP Diastolic 2023-12-19 09:38:00 75 mm[Hg] Dexter Enrique Weight Measured 2023-12-19 09:38:00 189.00 pounds Satnam Enrique Height Measured 2023-12-19 09:38:00 59.84 inches Satnam Enrique Body Temperature 2023-12-19 09:38:00 98.30 degrees Satnam F Klaus Heart Rate 2023-12-19 09:38:00 92.00 /min Ivania en F Klaus Respiratory Rate 2023-12-19 09:38:00 18.00 /min Satnam F Klaus BP Systolic 2023-12-05 08:55:00 111 mm[Hg] Step hen F Klaus BP Diastolic 2023-12-05 08:55:00 77 mm[Hg] Dexter phen F Klaus Weight Measured 2023-12-05 08:55:00 195.20 pounds Satnam F Klaus Height Measured 2023-12-05 08:55:00 59.84 inches Satnam F Klaus Body Temperature 2023-12-05 08:55:00 98.30 degrees Satnam F Klaus Heart Rate 2023-12-05 08:55:00 97.00 /min Ivania en F Klaus Respiratory Rate 2023-12-05 08:55:00 18.00 /min Satnam F Klaus BP Systolic 2023-12-03 15:42:00 124 mm[Hg] Step hen F Klaus BP Diastolic 2023-12-03 15:42:00 87 mm[Hg] Dexter phen F Klaus Weight Measured 2023-12-03 15:42:00 195.00 pounds Satnam F Klaus Height Measured 2023-12-03 15:42:00 59.84 inches Satnam F Klaus Body Temperature 2023-12-03 15:42:00 98.20 degrees Satnam F Klaus Heart Rate 2023-12-03 15:42:00 77.00 /min Ivania en F Klaus Respiratory Rate 2023-12-03 15:42:00 Satnam F Klaus BP Systolic 2023-09-30 09:56:00 114 mm[Hg] Step hen F Klaus BP Diastolic 2023-09-30 09:56:00 76 mm[Hg] Dexter phen F Klaus Weight Measured 2023-09-30 09:56:00 197.00 pounds Satnam F Klaus Height Measured 2023-09-30 09:56:00 59.84 inches Satnam F Klaus Body Temperature 2023-09-30 09:56:00 98.20 degrees Satnam F Klaus Heart Rate 2023-09-30 09:56:00 87.00 /min Ivania en F Klaus Respiratory Rate 2023-09-30 09:56:00 16.00 /min Satnam F Klaus Height Measured 2023-09-23 10:43:00 59.84 inches Satnam F Klaus Body Temperature 2023-09-23 10:43:00 Satnam F Klaus Heart Rate 2023-09-23 10:43:00 80.00 /min Ivania en F Klaus Respiratory Rate 2023-09-23 10:43:00 17.00 /min Satnam F Klaus BP Systolic 2023-09-23 10:43:00 122 mm[Hg] Step hen F Klaus BP Diastolic 2023-09-23 10:43:00 79 mm[Hg] Dexter phen F Klaus Weight Measured 2023-09-23 10:43:00 193.20 pounds Satnam F Klaus BP Systolic 2022-07-15 10:18:00 115 mm[Hg] Step hen F Klaus BP Diastolic 2022-07-15 10:18:00 78 mm[Hg] Dexter phen F Klaus Weight Measured 2022-07-15 10:18:00 203.60 pounds Satnam F Klaus Height Measured 2022-07-15 10:18:00 59.84 inches Satnam F Klaus Body Temperature 2022-07-15 10:18:00 98.00 degrees Satnam F Klaus Heart Rate 2022-07-15 10:18:00 94.00 /min Ivania en F Klaus Respiratory Rate 2022-07-15 10:18:00 25.00 /min Satnam F Klaus BP Systolic 2022-07-12 16:13:00 138 mm[Hg] Step hen F Klaus BP Diastolic 2022-07-12 16:13:00 84 mm[Hg] Dexter phen F Klaus Weight Measured 2022-07-12 16:13:00 206.40 pounds Satnam F Klaus Height Measured 2022-07-12 16:13:00 59.84 inches Satnam F Klaus Body Temperature 2022-07-12 16:13:00 98.10 degrees Satnam F Klaus Heart Rate 2022-07-12 16:13:00 101.00 /min Step hen F Klaus Respiratory Rate 2022-07-12 16:13:00 16.00 /min Satnam F Klaus Procedures Procedure Date / Time Performed Performing Clinician Source POCT URINALYSIS W/O SPECIFIC GRAVITY 2024-06-08 13:22:00 Ladan Dunn [facility] POCT TEST 2024-06-08 13:21:00 Nicholas Dunn [facility] FIRST TRIMESTER LESS THAN 14 WEEKS 2024-06-07 18:41:14 Autumn Alvarez [facility] POCT TEST 2024-06-06 19:12:00 Danii Mckeon [facility] CBC WITH DIFF 2024-06-06 18:42:00 Marybeth Mckeon [facility] GC & CHLAMYDIA AMPLIFIED ASSAY 2024-05-31 20:00:00 Autumn Alvarez [facility] GALV ONLY - VAGINAL PATHOGENS BY NUCLEIC ACID TESTING 2024-05-31 20:00:00 Autumn Alvarez [facility] CT ABDOMEN PELVIS W CONTRAST 2024-02-03 20:59:40 Scott Cardenas [facility] POCT TEST 2024-02-03 20:38:00 America Cardenas [facility] URINALYSIS 2024-02-03 20:36:00 Scott Cardenas [facility] LIPASE 2024-02-03 20:32:00 Scott Cardenas [facility] COMP. METABOLIC PANEL (72987) 2024-02-03 20:32:00 Scott Cardenas [facility] CBC WITH DIFF 2024-02-03 20:32:00 Scott Cardenas [facility] POCT TEST 2023-12-27 22:04:00 Lila Acuna [facility] LIPASE 2023-12-27 22:01:00 Lila Acuna [facility] COMP. METABOLIC PANEL (46820) 2023-12-27 22:01:00 Lila Acuna [facility] CBC WITH DIFF 2023-12-27 22:01:[address] [facility] GLYCOSYLATED HEMOGLOBIN (A1C) 2023-12-27 22:01:00 Lila Acuna [facility] URINALYSIS 2023-12-27 22:01:00 Lila Acuna [facility] RAPID STREP SCREEN FOR GROUP A 2023-12-27 22:01:00 Lila Acuna [facility] INFLUENZA A/B RSV COVID NAAT 2023-12-27 22:01:00 Lila Acuna [facility] LACTIC ACID WHOLE BLOOD 2023-12-27 22:00:00 Jesu Acuna [facility] POCT GLUCOSE(AGE >30DAYS) 2023-12-17 04:02:00 Lila Acuna [facility] POCT GLUCOSE (AUTOMATED) 2023-12-17 03:52:00 Lila Acuna [facility] INFLUENZA A/B RSV COVID NAAT 2023-12-01 19:55:00 Key Anderson [facility] POCT TEST 2023-12-01 17:36:00 Porfirio Key [facility] COMP. METABOLIC PANEL ([id number]) 2023-12-01 17:35:00 Key Anderson [facility] CBC WITH DIFF 2023-12-01 17:35:00 Key Anderson [facility] URINALYSIS 2023-12-01 17:35:00 [facility] 2023-09-23 18:55:00 Marilyn Bowers [facility] TROPONIN I 2023-09-23 18:55:00 Marilyn Bowers [facility] COMP. METABOLIC PANEL (41522) 2023-09-23 18:55:00 Marilyn Bowers [facility] CBC WITH DIFF 2023-09-23 18:55:00 Marilyn Bowers [facility] XR CHEST 2 VW 2023-09-23 18:51:27 Marilyn Bowers [facility] POCT TEST 2023-09-23 18:41:00 Tarah Bowers [facility] ED LACERATION REPAIR 2022-06-15 23:53:19 Nicci Ovalles [facility] CONSENT/REFUSAL FOR DIAGNOSIS AND TREATMENT 2022-06-15 22:43:25 Doctor Unassigned, [place] [facility] CONSENT/REFUSAL FOR DIAGNOSIS AND TREATMENT 2022-05-28 00:31:56 Doctor Unassigned, [place] [facility] NOTICE OF PRIVACY PRACTICES 2021-10-04 15:41:13 Doctor Unassigned, [place] [facility] CONSENT/REFUSAL FOR DIAGNOSIS AND TREATMENT 2021-10-04 15:40:49 Doctor Unassigned, [place] [facility] CONSENT/REFUSAL FOR DIAGNOSIS AND TREATMENT 2021-02-16 02:11:53 Doctor Unassigned, [place] [facility] POCT GRP A STREP (MOLECULAR) 2021-02-13 15:09:00 Koko Killian [facility] Encounters Start Date/Time End Date/Time Encounter Type Admission Type Attending [facility] Facility Care Department Encounter ID Source 2021-02-18 09:18:43 Emergency [facility] [id number] [facility] 2024-06-10 07:15:00 2024-06-10 11:08:23 Outpatient R LADAN DUNN [facility] [id number] [facility] 2024-06-10 07:15:00 2024-06-10 11:08:23 Documentation Improvement Specialist Visit Lab, [place] Michelle C Lab, [place] BATTERY SERVICE TECHNICIAN [facility] MATERNAL & [facility]ILD [facility] 1..840.114 350.1.13.10 4.2.7.2.686 [id number] [facility] 2024-06-09 14:30:00 2024-06-09 15:19:53 Outpatient R SHALONDA PENN [facility] [id number] [facility] 2024-06-09 14:30:00 2024-06-09 15:19:53 Office Visit Shalonda Penn [facility] 1..840.114 350.1.13.10 4.2.7.2.686 [id number] [facility] 2024-06-09 00:00:00 2024-06-09 09:24:12 Tele[address] Rosio Miller [facility] BATTERY SERVICE TECHNICIAN [facility] & [facility]ILD [facility] 1.2.840.114 350.1.13.10 4.2.7.2.686 [id number] [facility] 2024-06-08 07:30:00 2024-06-08 09:01:44 Initial Visit Ladan Dunn [facility] BATTERY SERVICE TECHNICIAN [facility] & [facility]ILD [facility] 1.2.840.114 350.1.13.10 4.2.7.2.686 [id number] [facility] 2024-06-08 07:00:00 2024-06-08 07:13:45 Outpatient R LADAN DUNN [facility] [id number] [facility] 2024-06-07 11:11:25 2024-06-07 23:59:00 Outpatient R AUTUMN ALVAREZ [facility] [id number] [facility] 2024-06-07 11:00:00 2024-06-07 23:59:00 Hospital Encounter Autumn Alvarez [facility] 1.2.840.114 350.1.13.10 4.2.7.2.686 [id number] [facility] 2024-06-07 00:00:00 2024-06-07 15:23:44 Telephone Autumn Alvarez [facility] BATTERY SERVICE TECHNICIAN [facility] & [facility]ILD [facility] 1.2.840.114 350.1.13.10 4.2.7.2.686 [id number] [facility] 2024-06-06 00:00:00 2024-06-07 07:09:41 Patient Secure Msg Autumn Alvarez [facility] BATTERY SERVICE TECHNICIAN [facility] & [facility]ILD [facility] 1.2.840.114 350.1.13.10 4.2.7.2.686 [id number] [facility] 2024-06-06 12:29:00 2024-06-06 13:55:00 Emergency X MARYBETH MCKEON [facility] ERT [id number] [facility] 2024-06-06 12:29:00 2024-06-06 13:55:[address]beth [facility] 1.2840.114 350.1.13.10 4.2.7.2.686 [id number] [facility] 2024-05-31 13:30:00 2024-05-31 14:03:08 Outpatient R AUTUMN ALVAREZ [facility] [id number] [facility] 2024-05-31 13:30:00 2024-05-31 14:03:08 Office Visit Autumn Alvarez [facility] BATTERY SERVICE TECHNICIAN [facility] MATERNAL & CHILD [facility] 1.840.114 350.1.13.10 4.2.7.2.686 [id number] [facility] 2024-04-21 00:00:00 2024-05-03 17:08:[address] [facility] BATTERY SERVICE TECHNICIAN [facility] MATERNAL & CHILD [facility] 1..840.114 350.1.13.10 4.2.7.2.686 [id number] [facility] 2024-03-12 00:00:00 2024-04-17 18:19:33 Patient Secure MsShalonda Panchal [facility] 1.840.114 350.1.13.10 4.2.7.2.686 [id number] [facility] 2024-03-29 15:15:00 2024-03-29 15:15:00 Outpatient R SHER BOWDEN [facility] [id number] [facility] 2024-03-24 14:00:00 2024-03-24 14:25:33 Outpatient R NORMA NEIL [facility] [id number] [facility] 2024-03-24 14:00:00 2024-03-24 14:25:33 Office Visit Norma Neil [facility] 1.2.840.114 350.1.13.10 4.2.7.2.686 [id number] [facility] 2024-03-24 00:00:00 2024-03-24 10:57:27 Telephone Isamar Shalonda [facility] 1.2840.114 350.1.13.10 4.2.7.2.686 [id number] [facility] 2024-03-22 00:00:00 2024-03-24 08:25:17 Patient Secure M[facility] 1.2840.114 350.1.13.10 4.2.7.2.686 [id number] [facility] 2024-03-15 15:23:11 2024-03-15 23:59:00 Outpatient R SUKHISHALONDA Centeno [facility] [id number] [facility] 2024-03-15 15:23:11 2024-03-15 23:59:00 Hospital Encounter Isamar Shalonda [facility] 1.2840.114 350.1.13.10 4.2.7.2.686 [id number] [facility] 2024-03-10 00:00:00 2024-03-12 09:33:27 Patient Secure Msg Isamar [facility] 1.284.114 350.1.13.10 4.2.7.2.686 [id number] [facility] 2024-03-11 00:00:00 2024-03-11 16:12:36 Telephone PackerSravaniCarleyCarley Sanchez [facility] 1.20.114 350.1.13.10 4.2.7.2.686 [id number] [facility] 2024-03-10 00:00:00 2024-03-10 13:08:34 Telephone Autumn Alvarez [facility] BATTERY SERVICE TECHNICIAN [facility] & [facility]ILD [facility] 1.2840.114 350.1.13.10 4.2.7.2.686 [id number] [facility] 2024-03-10 12:30:00 2024-03-10 12:45:00 Documentation Improvement Specialist Visit Lab, Ang - Autumn Byrd Lab, Ang - Tony [facility] 1..114 350.1.13.10 4.2.7.2.686 [id number] [facility] 2024-03-10 11:00:00 2024-03-10 11:56:44 Outpatient R AUTUMN ALVAREZ [facility] [id number] [facility] 2024-03-10 11:00:00 2024-03-10 11:56:44 Office Visit Autumn Alvarez [facility] BATTERY SERVICE TECHNICIAN [facility] 1.0.114 350.1.13.10 4.2.7.2.686 [id number] [facility] 2024-03-10 00:00:00 2024-03-10 10:45:21 Telephone PackerSravani kirklandCarley Sanchez [facility] 1.2.114 350.1.13.10 4.2.7.2.686 [id number] [facility] 2024-03-09 15:00:00 2024-03-09 15:26:41 Outpatient R SHALONDA PENN [facility] [id number] [facility] 2024-03-09 15:00:00 2024-03-09 15:26:41 Office Visit Shalonda Penn [facility] 1..840.114 350.1.13.10 4.2.7.2.686 [id number] [facility] 2024-02-03 15:20:00 2024-02-03 18:37:00 Emergency X DWAYNE SCOTT [facility] ERT [id number] [facility] 2024-02-03 15:20:00 2024-02-03 18:37:00 Emergency Adekimberly Americaraulreza [facility] 1..840.114 350.1.13.10 4.2.7.2.686 [id number] [facility] 2023-12-27 16:31:00 2023-12-27 18:39:00 Emergency X LILA ACUNA PAMALA [facility] ERT [id number] [facility] 2023-12-27 16:31:00 2023-12-27 18:39:00 Emergency Lila Acuna G [facility] 1..840.114 350.1.13.10 4.2.7.2.686 [id number] [facility] 2023-12-19 09:18:05 2023-12-19 09:18:05 Outpatient SFA SFA [id number] Satnam Enrique 2023-12-19 00:00:00 2023-12-19 00:00:00 Outpatient Visit SFA [id number] Satnam Enrique 2023-12-16 23:02:00 2023-12-16 23:07:00 Emergency X LILA ACUNA PAMALA [facility] ERT [id number] [facility] 2023-12-16 23:02:00 2023-12-16 23:07:00 Emergency Lila Acuna [facility] 1..840.114 350.1.13.10 4.2.7.2.686 [id number] [facility] 2023-12-05 08:51:57 2023-12-05 08:51:57 Outpatient SFA [facility] [id number] Satnam Enrique 2023-12-05 00:00:00 2023-12-05 00:00:00 Outpatient Visit [facility] [id number] Satnam Enrique 2023-12-03 15:26:51 2023-12-03 15:26:51 Outpatient SFA [facility] [id number] Satnam Enrique 2023-12-03 00:00:00 2023-12-03 00:00:00 Outpatient Visit [facility] [id number] Satnam Enrique 2023-12-01 12:06:00 2023-12-01 16:43:00 Emergency Crow ANDERSON, KEY LOPEZ [facility] ERT [id number] [facility] 2023-12-01 12:06:00 2023-12-01 16:43:00 Emergency [place] [facility] 1..840.114 350.1.13.10 4.2.7.2.686 [id number] [facility] 2023-10-30 09:00:00 2023-10-30 09:00:00 Outpatient BLAIR AG [facility] [id number] [facility] 2023-09-24 00:00:00 2023-10-25 18:19:21 Patient Secure Msg Doctor Unassigned, [place] [facility] 1..840.114 350.1.13.10 4.2.7.2.686 [id number] [facility] 2023-09-30 09:42:51 2023-09-30 09:42:51 Outpatient SFA SFA [id number] Satnam Enrique 2023-09-30 00:00:00 2023-09-30 00:00:00 Outpatient Visit SFA [id number] Satnam Enrique 2023-09-23 12:51:00 2023-09-23 15:28:00 Emergency X EVETTE BOWERSHERINE [facility] ERT [id number] [facility] 2023-09-23 12:51:00 2023-09-23 15:28:00 Emergency JoseEvetteMarilyn [facility] 1.2.840.114 350.1.13.10 4.2.7.2.686 [id number] [facility] 2023-09-23 10:37:57 2023-09-23 10:37:57 Outpatient SFA SFA [id number] Satnam Enrique 2023-09-23 00:00:00 2023-09-23 00:00:00 Outpatient Visit SFA [id number] Satnam Enrique 2023-09-10 09:45:00 2023-09-10 09:45:00 Outpatient R LADAN DUNN [facility] [id number] [facility] 2022-07-15 10:09:30 2022-07-15 10:09:30 Outpatient SFA SFA [id number] Satnam Enrique 2022-07-15 00:00:00 2022-07-15 00:00:00 Outpatient Visit SFA [id number] Satnam Enrique 2022-07-12 17:41:36 2022-07-12 17:41:36 Outpatient SFA SFA [id number] Satnam Enrique 2022-07-12 00:00:00 2022-07-12 00:00:00 Outpatient Visit [facility] [id number] Satnam Enrique 2022-06-15 16:49:00 2022-06-15 18:00:00 Emergency X NICCI OVALLES [facility] ERT [id number] [facility] 2022-06-15 16:49:00 2022-06-15 18:00:00 Emergency Ncici Ovalles [facility] 1.2840.114 350.1.13.10 4.2.7.2.686 [id number] [facility] 2022-05-27 18:36:00 2022-05-27 19:27:00 Emergency X NICCI OVALLES [facility] ERT [id number] [facility] 2022-05-27 18:36:00 2022-05-27 19:27:00 Emergency Nicci Ovalles [facility] 1.2840.114 350.1.13.10 4.2.7.2.686 [id number] [facility] 2021-10-04 10:50:00 2021-10-04 12:40:00 Emergency X MYA RATLIFF [facility] ERT [id number] [facility] 2021-10-04 10:50:00 2021-10-04 12:40:00 Emergency Mya Ratliff [facility] 1.2.840.114 350.1.13.10 4.2.7.2.686 [id number] [facility] 2021-03-08 00:00:00 2021-03-08 00:00:00 Case Management Melony Forrest 1.2.840.114 350.1.13.10 4.2.7.2.686 [id number] [facility] 2021-02-15 21:20:00 2021-02-15 21:42:00 Emergency X NICCI OVALLES [facility] ERT [id number] [facility] 2021-02-15 21:20:00 2021-02-15 21:42:00 Emergency Nicci Ovalles [facility] 1.2.840.114 350.1.13.10 4.2.7.2.686 [id number] [facility] 2021-02-13 10:00:00 2021-02-13 10:00:00 Outpatient R BECCA BUSTILLOS [facility] [id number] [facility] 2021-02-13 09:26:05 2021-02-13 09:46:05 Urgent Care Provider, [facility] 1.2.840.114 350.1.13.10 4.2.7.2.686 [id number] [facility] 2020-10-17 19:45:00 2020-10-17 19:45:00 Outpatient R BECCA BUSTILLOS [facility] [id number] [facility] 2019-06-14 05:27:00 2019-06-14 06:16:00 Emergency X EDI GRAY [facility] ERT [id number] [facility] Results Test Description Test Time Test Comments Results Result Co mments Source [facility] [id number] 13:21:00* Test Item Value Reference Range Interpretation Comme nts POCT PREG (test code = 1605) Positive On board controls acceptable with C Line (test code = 3574) Yes POCT PREG LOT # (test code = 3575) POCT PREG TEST DATE ( test code = 3576) [facility] first trimester less than 14 [id number] 22:00:21FIRST TRIMESTER OBSTETRICAL SONOGRAM INDICATION: Intrauterine gestationLMP: Unknown TECHNIQUE: Transabdominal and endovaginal imaging of the pelvis. Grayscale, colorDoppler, spectral wave form analysis. FINDINGS: Uterus: 11.6 x 6.1 x 9.9The uterus is within normal limits. Intrauterine gestational sac is present. Placental tissue is not evaluatedat this early gestation. ?Amniotic fluid is subjectively within normallimits. Questionable subchorionic hemorrhage. FHR: 157, xx xxCRL: 1.6 cmYolk sac: 0.3 cmMean gestational sac: 3.7 cm The right ovary measures 4.9 x 2.7 x 4.9 cm. The left ovary measures 3.4 x 2.8 x 3.2 cm. Pulse Doppler assessment demonstrates blood flow in both ovaries.[facility] Test 2024-06-06 19:12:00* Test Item Value Reference Range Interpretation Comme nts POCT PREG (test code = 1605) Positive On board controls acceptable with C Line (test code = 3574) Yes Lab Interpretation (test cod e = 93505-5) Normal [facility] ABDOMEN PELVIS W [id number] 22:24:20EXAM: CT ABDOMEN PELVIS W CONTRAST HISTORY: 33 years old Female with abdominal pain with nausea andconstipation of 8 days duration. Abdominal pain, acute, nonlocalized COMPARISON: CT abdomen pelvis dated 08/02/2016. TECHNIQUE AND FINDINGS: Contiguous axial imaging from the level of the lungbases through the pubic symphysis was performed after administration ofintravenous contrast. Coronal and sagittal reconstructions were obtained. Auto mA and/or iterative reconstruction were used to reduce radiation dose. FINDINGS: LOWER THORAX: The lungs bases are clear. No cardiomegaly. LIVER: No focal hepatic lesions. ?Normal contour. GALLBLADDER AND BILIARY TREE: No biliary ductal dilation. ?No gallbladderwall thickening. SPLEEN: No splenomegaly. Interval increase in size of of the previouslynoted 2 hypodense splenic lesions and additional new 2 hypodense lesions,largest of all measuring approximately 2 cm. The lesions display mildenhancement. PANCREAS: No ductal dilation or masses. ADRENAL GLANDS: No adrenal nodules. KIDNEYS: No hydronephrosis, stones, or masses. PERITONEUM AND RETROPERITONEUM:No free air or fluid. LYMPH NODES: No lymphadenopathy. GI TRACT: Diffuse thickening of the proximaljejunal bowel loops. Distendedrectum was large stool volume. A 1.7 cm tubular centrally hypodense foreignbody is noted in the proximal jejunal lumen (series 4, image 40). Theappendix is normal. PELVIS/BLADDER: The urinary bladder is partially distended. Circumferentialurinary bladder wall thickening is noted. Bicornuate uterus. VESSELS: Unremarkable. BONES AND SOFT TISSUES: No suspicious lytic orsclerotic bony lesions.[facility]. METABOLIC PANEL ([id number]) 2024-02-03 22:12:56* Test Item Value Reference Range Interpretation Comme nts NA (test code = 5953981340) 134 mmol/L 135-145 L K (test code = 1256360266) 4.0 mmol/L 3.5-5.0 CL (test code = 2694648957) 102 mmol/L 98-108 CO2 TOTAL (test code = 4368771189) 21 mmol/L 23-31 L AGAP (test code = 0669235965) 11 2-16 BUN (test code = 2168123141) 13 mg/dL 7-23 GLUCOSE (test code = 9388812087) 110 mg/dL 70-110 CREATININE (test code = 2160-0) 0.56 mg/dL 0.50-1.04 TOTAL BILI (test code = 0187107280) 0.6 mg/dL 0.1-1.1 CALCIUM (test code = 0049881484) 10.0 mg/dL 8.6-10.6 T PROTEIN (test code = 4479286005) 7.7 g/dL 6.3-8.2 ALBUMIN (test code = 1759268968) 4.7 g/dL 3.5-5.0 ALK PHOS (test code = 1585005361) 78 U/L 34-122 ALTv (test code = 1742-6) 33 U/L 5-35 AST(SGOT) (test code = 3864164038) 40 U/L 13-40 eGFR (test code = 90858-1) 123.0 mL/min/1.73m2 CKD-EPI eGFR (2020). Assuming creatinine has been stable day-to-day for at least three months, the eGFR indicates Category G1 (>= 90 mL/min/1.73 m2) Lab Interpretation (test code = 66705-2) Abnormal [id number] 22:12:36* Test Item Value Reference Range Interpretation Comme nts LIPASE (test code = 1145497020) 132 U/L 0-220 Lab Interpretation (test cod e = 58019-6) Normal [facility] WITH [id number] 22:00:14* Test Item Value Reference Range Interpretation Comme nts WBC (test code = 6690-2) 13.32 4.30-11.10 H RBC (test code = 789-8) 4.89 3.93-5.25 HGB (test code = 718-7) 14.9 g/dL 11.6-15.0 HCT (test code = 4544-3) 47.4 % 35.7-45.2 H MCV (test code = 787-2) 96.9 fL 80.6-95.5 H MCH (test code = 785-6) 30.5 pg 25.9-32.8 MCHC (test code = 786-4) 31.4 g/dL 31.6-35.1 L RDW-SD (test code = 66743-3) 47.2 fL 39.0-49.9 RDW-CV (test code = 788-0) 14.2 % 12.0-15.5 PLT (test code = 777-3) 237 166-358 MPV (test code = 48043-4) 10.3 fL 9.5-12.9 NRBC/100 WBC (test code = 4233233907) 0.0 0.0-10.0 NRBC x10^3 (test code = 3959254781) See_Comment [Automated messa ge] The system which generated this result transmitted reference range: 10*3/?L. The reference range was not used to interpret this result as normal/abnormal. GRAN MAT (NEUT) % (test code = 770-8) 70.5 % IMM GRAN % (test code = 9669539405) 0.40 % LYMPH % (test code = 736-9) 21.2 % MONO % (test code = 5905-5) 5.9 % EOS % (test code = 713-8) 1.4 % BASO % (test code = 706-2) 0.6 % GRAN MAT x10^3(ANC) (test code = 9229235569) 9.40 10*3/uL 1.88-7.09 H IMM GRAN x10^3 (test code = 3353139047) 0.05 10*3/uL 0.00-0.06 LYMPH x10^3 (test code = 731-0) 2.83 10*3/uL 1.32-3.29 MONO x10^3 (test code = 742-7) 0.78 10*3/uL 0.33-0.92 EOS x10^3 (test code = 711-2) 0.18 10*3/uL 0.03-0.39 BASO x10^3 (test code = 704-7) 0.08 10*3/uL 0.01-0.07 H Lab Interpretation (test code = 10331-1) Abnormal [facility] [id number] 20:38:00* Test Item Value Reference Range Interpretation Comme nts POCT PREG (test code = 1605) Negative On board controls acceptable with C Line (test code = 3574) Yes POCT PREG LOT # (test code = 3575) [id number] POCT PREG TEST DATE ( test code = 3576) 01/23/2025 Lab Interpretation (test cod e = 10057-9) Normal [facility] ResourcesGlycosylated Hemoglobin (A1C)2023-12-27 22:51:18* Test Item Value Reference Range Interpretation Comme nts HGB A1C (test code = 4548-4) 7.1 % 4.0-5.7 H [place] (test code = [place]) Reference RangesNormal: <5.7%Prediabetes: 5.7 - 6.4%Diabetes: > 6.5% Lab Interpretation (test code = 10881-2) Abnormal [facility] Resources[facility]. METABOLIC PANEL (95572)2023-12-27 22:37:22* Test Item Value Reference Range Interpretation Comme nts NA (test code = 5814774282) 138 mmol/L 135-145 K (test code = 9416533507) 3.6 mmol/L 3.5-5.0 CL (test code = 1091504784) 104 mmol/L 98-108 CO2 TOTAL (test code = 5365230839) 23 mmol/L 23-31 AGAP (test code = 3578933374) 11 2-16 BUN (test code = 4070848376) 11 mg/dL 7-23 GLUCOSE (test code = 1914064847) 104 mg/dL 70-110 CREATININE (test code = 2160-0) 0.64 mg/dL 0.50-1.04 TOTAL BILI (test code = 2632986369) 0.4 mg/dL 0.1-1.1 CALCIUM (test code = 3578340239) 9.3 mg/dL 8.6-10.6 T PROTEIN (test code = 8463046625) 7.3 g/dL 6.3-8.2 ALBUMIN (test code = 8617861441) 4.4 g/dL 3.5-5.0 ALK PHOS (test code = 5753289833) 73 U/L 34-122 ALTv (test code = 1742-6) 42 U/L 5-35 H AST(SGOT) (test code = 2111953630) 26 U/L 13-40 eGFR (test code = 88115-2) 119.1 mL/min/1.73m2 CKD-EPI eGFR (2020). Assuming creatinine has been stable day-to-day for at least three months, the eGFR indicates Category G1 (>= 90 mL/min/1.73 m2) Lab Interpretation (test code = 39700-3) Abnormal [facility]2024-09-07 22:37:22* Test Item Value Reference Range Interpretation Comme nts LIPASE (test code = 2227571033) 153 U/L 0-220 Lab Interpretation (test cod e = 35695-6) Normal [facility] WITH [id number] 22:25:03* Test Item Value Reference Range Interpretation Comme nts WBC (test code = 6690-2) 11.93 4.30-11.10 H RBC (test code = 789-8) 5.05 3.93-5.25 HGB (test code = 718-7) 14.3 g/dL 11.6-15.0 HCT (test code = 4544-3) 42.9 % 35.7-45.2 MCV (test code = 787-2) 85.0 fL 80.6-95.5 MCH (test code = 785-6) 28.3 pg 25.9-32.8 MCHC (test code = 786-4) 33.3 g/dL 31.6-35.1 RDW-SD (test code = 27281-1) 39.0 fL 39.0-49.9 RDW-CV (test code = 788-0) 12.7 % 12.0-15.5 PLT (test code = 777-3) 359 166-358 H MPV (test code = 92536-8) 10.4 fL 9.5-12.9 NRBC/100 WBC (test code = 5787587211) 0.0 0.0-10.0 NRBC x10^3 (test code = 4884586582) See_Comment [Automated messa ge] The system which generated this result transmitted reference range: 10*3/?L. The reference range was not used to interpret this result as normal/abnormal. GRAN MAT (NEUT) % (test code = 770-8) 70.8 % IMM GRAN % (test code = 5626186557) 0.30 % LYMPH % (test code = 736-9) 22.5 % MONO % (test code = 5905-5) 4.4 % EOS % (test code = 713-8) 1.7 % BASO % (test code = 706-2) 0.3 % GRAN MAT x10^3(ANC) (test code = 5503955566) 8.44 10*3/uL 1.88-7.09 H IMM GRAN x10^3 (test code = 6104522011) 0.04 10*3/uL 0.00-0.06 LYMPH x10^3 (test code = 731-0) 2.68 10*3/uL 1.32-3.29 MONO x10^3 (test code = 742-7) 0.53 10*3/uL 0.33-0.92 EOS x10^3 (test code = 711-2) 0.20 10*3/uL 0.03-0.39 BASO x10^3 (test code = 704-7) 0.04 10*3/uL 0.01-0.07 Lab Interpretation (test code = 71188-8) Abnormal [facility] [id number] 22:04:00* Test Item Value Reference Range Interpretation Comme nts POCT PREG (test code = 1605) Negative On board controls acceptable with C Line (test code = 3574) Yes Lab Interpretation (test cod e = 09691-6) Normal [facility] GLUCOSE(AGE >30DAYS)2023-12-17 04:02:00* Test Item Value Reference Range Interpretation Comme nts POCT Glu (age>30days) (test code = 3342) 122 mg/dL 70-110 A Lab Interpretation (test cod e = 83009-7) Abnormal [facility] GLUCOSE (AUTOMATED)2023-12-17 03:53:49* Test Item Value Reference Range Interpretation Comme nts POCT GLU (test code = 5983021509) 122 mg/dL 70-110 H Lab Interpretation (test cod e = 82842-5) Abnormal [facility]HE[facility] [id number] 04:44:46* Test Item Value Reference Range Interpretation Comme nts HEMOGLOBIN A1c (test code = 08612) 7.5 % 4.2-5.6 H [employer] GUIDELINES FOR HGB A1C: PREDIABETES/INCREASED RISK . . . . . . . 5.7-6.4% DIAGNOSIS OF DIABETES . . . . . . . . . >=6.5% WITH CONFIRMATION OR APPROPRIATE SYMPTOMS NOTE: ASSAY MAY BE AFFECTED BY HEMOGLOBINOPATHIES (SICKLE CELL ANEMIA, S-C DISEASE, OTHERS) OR ARTIFICIALLY LOWERED BY DECREASED RED CELL SURVIVAL (HEMOLYTIC ANEMIAS, BLOOD LOSS, ETC.). CONSIDER ALTERNATE TESTING OR LABORATORY CONSULTATION. UNLESS OTHERWISE INDICATED, ALL TESTING PERFORMED AT [facility] [address] [place] [address] SNOW TECHNICIAN: MARIXA PLAZA M.D. CLIA NUMBER [id number] [facility] [place]. [id number] LIPID [id number] 03:36:01* Test Item Value Reference Range Interpretation Comme nts CHOLESTEROL (test code = 2210) 269 MG/DL <200 H TRIGLYCERIDES (test code = 2232) 377 MG/DL <150 H HDL CHOLESTEROL (test code = 2220) 44 MG/DL >39 CALC LDL CHOL (test code = 2237) 161 MG/DL <100 H NOTE: CALCULATED LDL IS BASED ON NIKKI-FOSTER METHOD WHICHINCLUDES ADJUSTABLE TRIGLYCERIDE:VLDL CHOLESTEROL RATIO.THIS FACTOR VARIES BY MEASURED TRIGLYCERIDE AND NON-HDLCHOLESTEROL CONCENTRATIONS WITH INCREASED CALCULATED LDL SEENIN HIGHER TRIGLYCERIDE OR LOWER NON-HDL SPECIMENS. FOR MOREINFORMATION, SEE CLIENT ANNOUNCEMENT AT [email or web address] RISK RATIO LDL/HDL (test code = 2238) 3.66 RATIO <3.22 H CBC W/AUTO DIFF WITH [id number] 02:39:26* Test Item Value Reference Range Interpretation Comme nts WBC (test code = 1001) 14.8 K/UL 3.5-11.0 H RBC (test code = 1002) 5.12 M/UL 3.80-5.40 HEMOGLOBIN (test code = 1003) 14.6 G/DL 11.5-15.5 HEMATOCRIT (test code = 1004) 43.7 % 34.0-45.0 MCV (test code = 1005) 85.4 fL 80.0-99.0 MCH (test code = 1006) 28.5 PG 25.0-33.0 MCHC (test code = 1007) 33.4 G/DL 31.0-36.0 RDW (test code = 1038) 12.8 % 11.5-15.0 NEUTROPHILS (test code = 1008) 68.2 % LYMPHOCYTES (test code = 1010) 23.5 % MONOCYTES (test code = 1011) 5.6 % EOSINOPHILS (test code = 1012) 1.8 % BASOPHILS (test code = 1013) 0.6 % IMMATURE GRANULOCYTES (test code = 1036) 0.3 % NUCLEATED RBCS (test code = 1065) 0.0 /100 WBC'S See_Comment [Automated [employer]] The system which generated this result transmitted reference range: 0.0. The reference range was not used to interpret this result as normal/abnormal. PLATELET COUNT (test code = 1015) 454 K/UL 130-400 H ABSOLUTE NEUTROPHILS (test code = 1066) 10.12 K/UL 1.50-7.50 H ABSOLUTE LYMPHOCYTES (test code = 1067) 3.49 K/UL 1.00-4.00 ABSOLUTE MONOCYTES (test code = 1068) 0.83 K/UL 0.20-1.00 ABSOLUTE EOSINOPHILS (test code = 1040) 0.26 K/UL 0.00-0.50 ABSOLUTE BASOPHILS (test code = 1069) 0.09 K/UL 0.00-0.20 ABS IMMATURE GRANULOCYTES (test code = 1020) 0.04 K/UL 0.00-0.10 ABS NUCLEATED RBCS (test code = 04944) 0.00 K/UL 0.00-0.11 HEMOGLOBIN [id number] 00:00:00* Test Item Value Reference Range Interpretation Comme nts HEMOGLOBIN A1c (test code = 16005) 7.5 % Satnam EnriqueHIV 1/2 4TH GEN, RFLX [id number] 00:00:00* Test Item Value Reference Range Interpretation Comme nts HIV 1/2 4TH GEN, RFLX CONF ( test code = 3514) NON-REACTIVE Satnam EnriqueCBC W/AUTO [id number] 00:00:00* Test Item Value Reference Range Interpretation Comme nts WBC (test code = 1001) 14.8 K/UL RBC (test code = 1002) 5.12 M/UL HEMOGLOBIN (test code = 1003) 14.6 G/DL HEMATOCRIT (test code = 1004) 43.7 % MCV (test code = 1005) 85.4 fL MCH (test code = 1006) 28.5 PG MCHC (test code = 1007) 33.4 G/DL RDW (test code = 1038) 12.8 % NEUTROPHILS (test code = 1008) 68.2 % LYMPHOCYTES (test code = 1010) 23.5 % MONOCYTES (test code = 1011) 5.6 % EOSINOPHILS (test code = 1012) 1.8 % BASOPHILS (test code = 1013) 0.6 % IMMATURE GRANULOCYTES (test code = 1036) 0.3 % NUCLEATED RBCS (test code = 1065) 0.0 /100WBC'S PLATELET COUNT (test code = 1015) 454 K/UL ABSOLUTE NEUTROPHILS (test c ode = 1066) 10.12 K/UL ABSOLUTE LYMPHOCYTES (test c ode = 1067) 3.49 K/UL ABSOLUTE MONOCYTES (test cod e = 1068) 0.83 K/UL ABSOLUTE EOSINOPHILS (test c ode = 1040) 0.26 K/UL ABSOLUTE BASOPHILS (test cod e = 1069) 0.09 K/UL ABS IMMATURE GRANULOCYTES (t est code = 1020) 0.04 K/UL ABS NUCLEATED RBCS (test cod e = 36212) 0.00 K/UL Satnam EnriqueLIPID [id number] 00:00:00* Test Item Value Reference Range Interpretation Comme nts CHOLESTEROL (test code = 2210) 269 MG/DL TRIGLYCERIDES (test code = 2232) 377 MG/DL HDL CHOLESTEROL (test code = 2220) 44 MG/DL CALC LDL CHOL (test code = 2237) 161 MG/DL RISK RATIO LDL/HDL (test cod e = 2238) 3.66 RATIO Satnam EnriqueHEMOGLOBIN [id number] 00:00:00* Test Item Value Reference Range Interpretation Comme nts HEMOGLOBIN A1c (test code = 35531) 7.5 % Satnam EnriqueCBC W/AUTO [id number] 00:00:00* Test Item Value Reference Range Interpretation Comme nts WBC (test code = 1001) 14.8 K/UL RBC (test code = 1002) 5.12 M/UL HEMOGLOBIN (test code = 1003) 14.6 G/DL HEMATOCRIT (test code = 1004) 43.7 % MCV (test code = 1005) 85.4 fL MCH (test code = 1006) 28.5 PG MCHC (test code = 1007) 33.4 G/DL RDW (test code = 1038) 12.8 % NEUTROPHILS (test code = 1008) 68.2 % LYMPHOCYTES (test code = 1010) 23.5 % MONOCYTES (test code = 1011) 5.6 % EOSINOPHILS (test code = 1012) 1.8 % BASOPHILS (test code = 1013) 0.6 % IMMATURE GRANULOCYTES (test code = 1036) 0.3 % NUCLEATED RBCS (test code = 1065) 0.0 /100WBC'S PLATELET COUNT (test code = 1015) 454 K/UL ABSOLUTE NEUTROPHILS (test c ode = 1066) 10.12 K/UL ABSOLUTE LYMPHOCYTES (test c ode = 1067) 3.49 K/UL ABSOLUTE MONOCYTES (test cod e = 1068) 0.83 K/UL ABSOLUTE EOSINOPHILS (test c ode = 1040) 0.26 K/UL ABSOLUTE BASOPHILS (test cod e = 1069) 0.09 K/UL ABS IMMATURE GRANULOCYTES (t est code = 1020) 0.04 K/UL ABS NUCLEATED RBCS (test cod e = 12556) 0.00 K/UL Satnam EnriqueHIV 1/2 4TH GEN, RFLX [id number] 00:00:00* Test Item Value Reference Range Interpretation Comme prieto HIV 1/2 4TH GEN, RFLX CONF ( test code = 3514) NON-REACTIVE Satnam EnriqueLIPID [id number] 00:00:00* Test Item Value Reference Range Interpretation Comme nts CHOLESTEROL (test code = 2210) 269 MG/DL TRIGLYCERIDES (test code = 2232) 377 MG/DL HDL CHOLESTEROL (test code = 2220) 44 MG/DL CALC LDL CHOL (test code = 2237) 161 MG/DL RISK RATIO LDL/HDL (test cod e = 2238) 3.66 RATIO Satnam EnriqueHEMOGLOBIN [id number] 00:00:00* Test Item Value Reference Range Interpretation Comme prieto HEMOGLOBIN A1c (test code = 54492) 7.5 % Satnam EnriqueCBC W/AUTO [id number] 00:00:00* Test Item Value Reference Range Interpretation Comme nts WBC (test code = 1001) 14.8 K/UL RBC (test code = 1002) 5.12 M/UL HEMOGLOBIN (test code = 1003) 14.6 G/DL HEMATOCRIT (test code = 1004) 43.7 % MCV (test code = 1005) 85.4 fL MCH (test code = 1006) 28.5 PG MCHC (test code = 1007) 33.4 G/DL RDW (test code = 1038) 12.8 % NEUTROPHILS (test code = 1008) 68.2 % LYMPHOCYTES (test code = 1010) 23.5 % MONOCYTES (test code = 1011) 5.6 % EOSINOPHILS (test code = 1012) 1.8 % BASOPHILS (test code = 1013) 0.6 % IMMATURE GRANULOCYTES (test code = 1036) 0.3 % NUCLEATED RBCS (test code = 1065) 0.0 /100WBC'S PLATELET COUNT (test code = 1015) 454 K/UL ABSOLUTE NEUTROPHILS (test c ode = 1066) 10.12 K/UL ABSOLUTE LYMPHOCYTES (test c ode = 1067) 3.49 K/UL ABSOLUTE MONOCYTES (test cod e = 1068) 0.83 K/UL ABSOLUTE EOSINOPHILS (test c ode = 1040) 0.26 K/UL ABSOLUTE BASOPHILS (test cod e = 1069) 0.09 K/UL ABS IMMATURE GRANULOCYTES (t est code = 1020) 0.04 K/UL ABS NUCLEATED RBCS (test cod e = 04653) 0.00 K/UL Satnam EnriqueHIV 1/2 4TH GEN, RFLX [id number] 00:00:00* Test Item Value Reference Range Interpretation Comme nts HIV 1/2 4TH GEN, RFLX CONF ( test code = 3514) NON-REACTIVE Satnam EnriqueLIPID [id number] 00:00:00* Test Item Value Reference Range Interpretation Comme nts CHOLESTEROL (test code = 2210) 269 MG/DL TRIGLYCERIDES (test code = 2232) 377 MG/DL HDL CHOLESTEROL (test code = 2220) 44 MG/DL CALC LDL CHOL (test code = 2237) 161 MG/DL RISK RATIO LDL/HDL (test cod e = 2238) 3.66 RATIO Satnam EnriqueCBC WITH [id number] 18:23:37* Test Item Value Reference Range Interpretation Comme nts WBC (test code = 6690-2) 13.80 4.30-11.10 H RBC (test code = 789-8) 5.11 3.93-5.25 HGB (test code = 718-7) 14.5 g/dL 11.6-15.0 HCT (test code = 4544-3) 43.9 % 35.7-45.2 MCV (test code = 787-2) 85.9 fL 80.6-95.5 MCH (test code = 785-6) 28.4 pg 25.9-32.8 MCHC (test code = 786-4) 33.0 g/dL 31.6-35.1 RDW-SD (test code = 38592-1) 39.8 fL 39.0-49.9 RDW-CV (test code = 788-0) 12.8 % 12.0-15.5 PLT (test code = 777-3) 399 166-358 H MPV (test code = 49453-2) 10.7 fL 9.5-12.9 NRBC/100 WBC (test code = 5741389638) 0.0 0.0-10.0 NRBC x10^3 (test code = 0239410972) See_Comment [Automated message] The system which generated this result transmitted reference range: 10*3/?L. The reference range was not used to interpret this result as normal/abnormal. GRAN MAT (NEUT) % (test code = 770-8) 74.9 % IMM GRAN % (test code = 6690179337) 0.40 % LYMPH % (test code = 736-9) 17.5 % MONO % (test code = 5905-5) 4.5 % EOS % (test code = 713-8) 2.1 % BASO % (test code = 706-2) 0.6 % GRAN MAT x10^3(ANC) (test code = 6947524012) 10.35 10*3/uL 1.88-7.09 H IMM GRAN x10^3 (test code = 1578559779) 0.05 10*3/uL 0.00-0.06 LYMPH x10^3 (test code = 731-0) 2.41 10*3/uL 1.32-3.29 MONO x10^3 (test code = 742-7) 0.62 10*3/uL 0.33-0.92 EOS x10^3 (test code = 711-2) 0.29 10*3/uL 0.03-0.39 BASO x10^3 (test code = 704-7) 0.08 10*3/uL 0.01-0.07 H Lab Interpretation (test code = 70943-2) Abnormal [facility]OL[facility] PAN[facility] ([id number])2023-12-01 18:16:51* Test Item Value Reference Range Interpretation Comme nts NA (test code = 0400857397) 135 mmol/L 135-145 K (test code = 3190540875) 3.7 mmol/L 3.5-5.0 CL (test code = 2695129408) 98 mmol/L 98-108 CO2 TOTAL (test code = 8641539509) 27 mmol/L 23-31 AGAP (test code = 6269794430) 10 2-16 BUN (test code = 2699717605) 10 mg/dL 7-23 GLUCOSE (test code = 1220368453) 199 mg/dL 70-110 H CREATININE (test code = 2160-0) 0.57 mg/dL 0.50-1.04 TOTAL BILI (test code = 5112671101) 0.7 mg/dL 0.1-1.1 CALCIUM (test code = 2428592448) 9.4 mg/dL 8.6-10.6 T PROTEIN (test code = 3209266062) 8.0 g/dL 6.3-8.2 ALBUMIN (test code = 2951072546) 4.3 g/dL 3.5-5.0 ALK PHOS (test code = 4876480364) 91 U/L 34-122 ALTv (test code = 1742-6) 27 U/L 5-35 AST(SGOT) (test code = 6331094896) 26 U/L 13-40 eGFR (test code = 67374-1) 122.5 mL/min/1.73m2 CKD-EPI eGFR (2020). Assuming creatinine has been stable day-to-day for at least three months, the eGFR indicates Category G1 (>= 90 mL/min/1.73 m2) Lab Interpretation (test code = 86596-7) Abnormal [facility] [id number] 17:36:00* Test Item Value Reference Range Interpretation Comme nts POCT PREG (test code = 1605) Negative On board controls acceptable with C Line (test code = 3574) Yes POCT PREG LOT # (test code = 3575) [facility] [id number] POCT PREG TEST DATE (test code = 3576) 08/22/2024 Lab Interpretation (test cod e = 57516-2) Normal [facility] ResourcesTR[facility] [id number] 19:57:07* Test Item Value Reference Range Interpretation Comme nts TROPONIN I (test code = 8975796904) 0.003 ng/mL <=0.034 CHEYENNE (test code = CHEYENNE) Reference (Normal) Range (defined by the 99th percentile reference limit): <= 0.034 ng/mL Note: Cardiac troponin begins to rise 3-4 hours after the onset of ischemia. Repeat in 4-6 hours if the sample was drawn within 3-4 hours of the onset of the symptom and found normal. Diagnosis of myocardial injury is made with acute changes in cTn concentrations with at least one serial sample above the 99th percentile upper reference limit (URL), taken together with the patient's clinical presentation. Biotin has been reported to cause a negative bias, interpret results relative to patient's use of biotin. Lab Interpretation (test code = 29591-5) Normal [facility] MET[facility]OLIC PANEL ([id number])2023-09-23 19:46:22* Test Item Value Reference Range Interpretation Comme nts NA (test code = 4428981264) 137 mmol/L 135-145 K (test code = 6953673834) 4.3 mmol/L 3.5-5.0 CL (test code = 9688948241) 105 mmol/L 98-108 CO2 TOTAL (test code = 1136852308) 26 mmol/L 23-31 AGAP (test code = 8995528700) 6 2-16 BUN (test code = 3915137716) 9 mg/dL 7-23 GLUCOSE (test code = 2591943827) 135 mg/dL 70-110 H CREATININE (test code = 2160-0) 0.58 mg/dL 0.50-1.04 TOTAL BILI (test code = 5295264478) 0.5 mg/dL 0.1-1.1 CALCIUM (test code = 2617597505) 9.3 mg/dL 8.6-10.6 T PROTEIN (test code = 9987444296) 7.4 g/dL 6.3-8.2 ALBUMIN (test code = 9063421386) 4.2 g/dL 3.5-5.0 ALK PHOS (test code = 2841143113) 84 U/L 34-122 ALTv (test code = 1742-6) 22 U/L 5-35 AST(SGOT) (test code = 3367242504) 21 U/L 13-40 eGFR (test code = 75031-8) 122.0 mL/min/1.73m2 CKD-EPI eGFR (2020). Assuming creatinine has been stable day-to-day for at least three months, the eGFR indicates Category G1 (>= 90 mL/min/1.73 m2) Lab Interpretation (test code = 04667-8) Abnormal [facility], [id number] 19:46:02* Test Item Value Reference Range Interpretation Comme nts LIPASE (test code = 2550696489) 106 U/L 0-220 Lab Interpretation (test cod e = 14401-5) Normal [facility] WITH [id number] 19:25:38* Test Item Value Reference Range Interpretation Comme nts WBC (test code = 6690-2) 14.81 4.30-11.10 H RBC (test code = 789-8) 4.95 3.93-5.25 HGB (test code = 718-7) 14.3 g/dL 11.6-15.0 HCT (test code = 4544-3) 42.7 % 35.7-45.2 MCV (test code = 787-2) 86.3 fL 80.6-95.5 MCH (test code = 785-6) 28.9 pg 25.9-32.8 MCHC (test code = 786-4) 33.5 g/dL 31.6-35.1 RDW-SD (test code = 80909-8) 42.5 fL 39.0-49.9 RDW-CV (test code = 788-0) 13.7 % 12.0-15.5 PLT (test code = 777-3) 387 166-358 H MPV (test code = 01289-6) 10.5 fL 9.5-12.9 NRBC/100 WBC (test code = 4470005987) 0.0 0.0-10.0 NRBC x10^3 (test code = 9573107803) See_Comment [Automated message] The system which generated this result transmitted reference range: 10*3/?L. The reference range was not used to interpret this result as normal/abnormal. GRAN MAT (NEUT) % (test code = 770-8) 70.9 % IMM GRAN % (test code = 3270354023) 0.40 % LYMPH % (test code = 736-9) 21.5 % MONO % (test code = 5905-5) 4.9 % EOS % (test code = 713-8) 1.6 % BASO % (test code = 706-2) 0.7 % GRAN MAT x10^3(ANC) (test code = 6883604283) 10.52 10*3/uL 1.88-7.09 H IMM GRAN x10^3 (test code = 3359149378) 0.06 10*3/uL 0.00-0.06 LYMPH x10^3 (test code = 731-0) 3.18 10*3/uL 1.32-3.29 MONO x10^3 (test code = 742-7) 0.72 10*3/uL 0.33-0.92 EOS x10^3 (test code = 711-2) 0.23 10*3/uL 0.03-0.39 BASO x10^3 (test code = 704-7) 0.10 10*3/uL 0.01-0.07 H Lab Interpretation (test code = 19460-0) Abnormal [facility] 2 [id number] 18:56:08EXAM: XR CHEST 2 VW HISTORY: 33 years-old Female; Provided indication: chest pain . TECHNIQUE: Single frontal view of the chest. COMPARISON: None FINDINGS: The lungs are well- expanded. No focal consolidation or pleural abnormalityis visualized. The cardiomediastinal silhouette is normal in size accounting fortechnique. No focal osseous lesions or acute osseous findings are detected.[facility] [id number] 18:41:00* Test Item Value Reference Range Interpretation Comme [facility] POCT PREG (test code = 1605) Negative On board controls acceptable with C Line (test code = 3574) Yes POCT PREG LOT # (test code = 3575) [id number] POCT PREG TEST DATE ( test code = 3576) 08/22/2024 Lab Interpretation (test cod e = 24483-7) Normal [facility] GRP A STREP (MOLECULAR)2021-02-13 15:09:00* Test Item Value Reference Range Interpretation Comme nts POCT GP A STREP (test code = 07898-9) Negative Negative - Negative Lab Interpretation (test cod e = 03128-2) Normal [facility] Notes Date/Time Note Provider Source 2024-06-09 09:19:55 Pt called having brown discharge since this AM. Denies any bleeding or pain. Patient with history of subchorionic hemorrhage. Advised brown discharge is a sign of old blood. Strict er warnings. Pt verbalized understanding. Ashley Miranda RN 06/09/24 9:20 AM DEVELOPMENT PROJECT MANAGER [facility] 2024-06-09 09:16:40 Patient states having brown discharge. DEVELOPMENT PROJECT MANAGER Carmen Mendoza [facility] 2024-06-07 14:58:17 Called pt, pt with viable upon usg. Pt having vaginal bleeding and seen at ER on 06/06/2024. Patient given strict ER warnings and pt scheduled for new ob 06/08/2024. Verbalized understanding. Ashley Miranda RN 06/07/24 2:59 PM DEVELOPMENT PROJECT MANAGER Ashley Miranda RN [facility] 2024-06-07 11:30:40 Rhonda Moreira is a 33 year old female [facility] imaging department is on the line to clarify orders place by provider Autumn Alvarez. Caller connected w/clinic to speak with clinical staff. DEVELOPMENT PROJECT MANAGER Zuleima Salazar [facility] 2024-06-06 13:55:17 Pt discharged with diagnosis of spontaneous in first trimester. Printed and verbal instructions reviewed with and given to pt. Prescriptions given x 0. Pt verbalized understanding of teaching and recommended follow-up. Denies questions or concerns at this time. Pt ambulatory at discharge. Appears in no apparent distress. No ataxia noted. Accompanied by SO. DEVELOPMENT PROJECT MANAGER Keira Moscoso RN [facility] 2024-06-06 12:22:39 Pt arrived ambulatory for intermittent menstrual cycle this month, had sex this morning and a palm size solid piece of tissue/blood palm came out of her vagina into the toilet. Denies using control, unknown if she is . Has a transvaginal US scheduled her tomorrow. Hx NIDDM [facility] Debbie Pham RN [facility] 2024-05-03 17:08:32 [facility] 2024-04-22 10:57:45 Images from the original note were not included. Notes: 03/10/24 Last Refilled: [facility] [address] [place] [address] Recent Visits Date Type Provider Dept 03/10/24 Office Visit Autumn Alvarez WHCNP [facility] 03/09/24 Office Visit Shalonda Penn FNP [facility] Showing recent visits within past 540 days with a meds authorizing provider and meeting all other requirements Future Appointments Date Type Provider Dept 06/09/24 Appointment Shalonda Penn FNP [facility] Showing future appointments within next 150 days with a meds authorizing provider and meeting all other requirements metFORMIN 1,000 mg 24 hr tablet Sig: Take 1 tablet by mouth daily with breakfast. Disp: 90 tablet Refills: 1 Start: 04/21/2024 Class: eRX Non-formulary For: Type 2 diabetes mellitus without complication, without long-term current use of insulin Last ordered: 1 month ago (03/10/2024) by JAGDEEP Portillo Endocrinology: Diabetes - Biguanides Claqev1404/21/2024 04:23 PM Protocol Details Valid encounter within last 12 months Cr is between 0 and 1.3 and within 360 days HBA1C within 180 days To be filled at: [facility] 2024-03-24 10:53:40 Gi referral placed again, she isn't in need of surgery just monitoring of lesion. It needs to be better characterized . [facility] 2024-03-11 16:12:05 [facility] worked 03.10.24 ob post file. No new orders placed to be requested by [facility] at this time Carley Packer 03/11/2024 4:12 PM [facility] Carley Packer [facility] 2024-03-10 13:08:[address] [facility] 2024-03-10 12:30:00 Images from the original note were not included. Venipuncture collection performed by clean technique on the right anticubitus. Total of 1 attempts were made. Slight pressure and a bandage/dressing were applied to the site(s). The patient experienced no complications. The following specimens were processed according to instructions and sent to [facility] laboratories per lab order on TODAY: LT BLUE SST 3 RED LAV PPT DK GREEN (LiHep) DK GREEN (SodH) BROWN DK BLUE (K2) DK BLUE (S) ACD Blood Culture NIPT/NTD Patient has been identified by name and was provided with cup, antiseptic towelette, and clean catch instructions. 1 urine specimen(s) sent. Unpreserved Urine Culture Aptima tube Other urine microalbumin [facility] 2024-03-10 12:17:20 Patient came in for her labs and also requested that her medication be sent to the [facility] pharmacy so she can get them free with her indigent program. Please advise. 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 No new orders placed to be requested by [facility] at this time Carley Packer 03/10/2024 10:45 AM [facility] Carley Packer [facility] 2024-02-03 18:34:26 Summary: Discharge Pt given printed and verbal discharge instructions regarding constipation, encouraged hydration, Prescriptions provided none suggested over the counter medication Discussed ibuprofen and to take with food to avoid GI distress. Pt verbalized understanding of instructions, pt awake alert oriented, resp reg unlabored, skin w/d, color appropriate for race, moves all ext well,pt encouraged to follow up with pcp Advised to seek medical attention for new/prolonged/worsening of symptoms, Symptoms No adverse reaction to meds given in ER noted upon discharge PIV d'cd, dressing to site, catheter in tact. Awake, alert oriented, resp reg unlabored, skin w/d, pt leaving amb with steady gait, in no apparent distress, Nusrat David RN [facility] 2024-02-03 18:00:00 Summary: Patient had a bowel movement Patient was able to have moderate bowel movement after half of the enema was placed in the rectum. Patient is feeling better at this time and ready to go home. [facility] 2024-02-03 15:16:02 Pt presents to ED c/o constipation for 8 days, has used different methods with no relief. Elver Gardner RN [facility] 2023-12-27 18:37:47 Patient given printed and verbal discharge instructions regarding viral syndrome. Pt verbalized understanding of instructions, pt awake alert oriented, resp reg unlabored, skin w/d, color appropriate for race, moves all ext well,pt encouraged to follow up with pcp. Advised to seek medical attention for new/prolonged/worsening of symptoms. No adverse reaction to meds given in ER noted upon discharge PIV d'cd, dressing to site, catheter in tact. Awake, alert oriented, resp reg unlabored, skin w/d, pt leaving amb with steady gait, in no apparent distress. Lynnette Barrientos RN [facility] 2023-12-27 16:28:33 Pt arrived ambulatory without assist. Pt c/o dizzy, headache and generalized body aches. 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 [facility]mita Barnett [facility] 22:47:21 Pt arrives ambulatory to ED reporting that she recently began taking Metformin. She took her dose tonight and became concerned because her sugar was 83. She says she did not receive much education on what to expect so she became nervous and came in to be checked out. BG 122 in triage. Natasha Ratliff [facility]8991-71-93 00:00:00 Satnam Triana [facility]2024-08-14 00:00:00 Satnam Triana [facility]2024-08-12 16:42:58 Summary: Discharge Pt given printed and verbal discharge instructions regarding headache unknown chest pain, encouraged hydration, Prescriptions provided none Discussed ibuprofen and to take with food to avoid GI distress. Pt verbalized understanding of instructions, pt awake alert oriented, resp reg unlabored, skin w/d, color appropriate for race, moves all ext well,pt encouraged to follow up with pcp Advised to seek medical attention for new/prolonged/worsening of symptoms, Symptoms No adverse reaction to meds given in ER noted upon discharge PIV d'cd, dressing to site, catheter in tact. Awake, alert oriented, resp reg unlabored, skin w/d, pt leaving amb with steady gait, in no apparent distress, Nusrat David [facility]vd8905-60-42 12:03:28 CC: patient presents to the ER with complaints of a migraine that began yesterday. Patient states symptoms began this weekend. Patient denies taking any OTC medications. Awake, alert, oriented, resp reg unlabored, skin warm and dry, color appropriate for race, moves all ext without difficulty, amb without assistance. Appears in no distress. Shruthi Flores [facility] HospitalTmhotx2307-19-76 00:00:00 Satnam Triana [facility]2024-06-04 15:24:47 Patient discharged to home. Patient given printed and verbal discharge instructions regarding diagnosis. Instructed to follow up with PCP. Patient verbalized understanding of instructions. Patient awake, alert, oriented, respirations even and unlabored, skin warm and dry, color appropriate for race. No adverse reaction to meds given in ER noted upon discharge. PIV removed. Discussed medications. Advised to seek medical attention for new/prolonged/worsening of symptoms, patient ambulated from unit with steady gait in no apparent distress. [facility]2024-06-04 12:44:37 Patient reports substernal chest pressure that radiates to left arm since Friday last week that is constant. She just came from [facility] in [place] and they saw ischemia on her EKG and told her to come here. Reports some intermittent shortness of breath. No cardiac history. They gave her nitro and it didn't help and made it worse. She is on a Zpak currently from ER on Friday. [facility]2024-06-04 00:00:00 [facility]2023-03-27 00:00:00 [facility]2023-03-24 00:00:00 [facility]
[2024-06-13 12:42] LABS: Specific Gravity 1.005 (1.005-1.030); Sqamous Epithelial <5 /HPF (None Seen); Urine Bacteria <20 /HPF (<20); Urine Bilirubin NEGATIVE (Negative); Urine Blood Negative (Negative); Urine Clarity Extremely Turbid (Clear); Urine Color Colorless (Yellow); Urine Culture Reflex Order NOT NEEDED; Urine Glucose NEGATIVE (Negative); Urine Ketones NEGATIVE (Negative); Urine Microscopic Reflex YN ORDER UMIC; Urine Nitrite NEGATIVE (Negative); Urine Protein NEGATIVE (Negative); Urine RBC <5 /HPF (None Seen); Urine Urobilinogen Normal (Normal); Urine WBC <5 /HPF (<5); Urine pH 6.5 (5.0-7.0)
[2024-06-13 12:43] LABS: Specific Gravity 1.005 (1.005-1.030)
--- NOTE | 2024-06-13 13:09 | RAD REPORT ---
EXAMINATION: US FIRST TRIMESTER TRANSVAGINAL WITH DOPPLER CLINICAL INDICATION: with pelvic pain TECHNIQUE: Real-time obstetrical ultrasonography of the maternal pelvis and first trimester was performed transvaginally. Color and spectral Doppler evaluation of the ovaries was performed. COMPARISON: No prior exam. FINDINGS: The uterus measures 11 x 6 x 7 cm. A gestational sac is present within the endometrium measuring 3.8 x 2.7 x 4.3 cm. Within this is a fe aline pole 2.1 cm. Cardiac activity at 1 71 bpm. Right ovary normal in size and echotexture. 2 cm hemorrhagic right ovarian cyst. No follow-up recomme nded. Left ovary normal in size and echotexture. Right and left adnexa unremarkable Small amount of free fluid likely not significant. IMPRESSION: Single live intrauterine with an estimated gestational age 9 weeks 0 days SANJUANA 01/16[birth year]25
[2024-06-13 13:15] LABS: Absolute Eosinophils 0.2 K/uL (0-0.5); Absolute Lymphocytes (CBC) 2.9 K/uL (0.7-4.9); Absolute Monocytes 0.7 K/uL (0.1-1.3); Absolute Neutrophil 8.9 K/uL (1.8-8.0); Basophils % 0.4 % (0-1.3); Eosinophils % 1.9 % (0-4.4); Hematocrit 39.7 % (36.0-45.0); Hemoglobin 13.2 g/dL (12.0-15.0); Lymphocytes % 22.5 % (15.3-44.8); MCHC 33.3 g/dL (32.0-36.0); MPV 8.7 fL (7.6-11.3); Monocytes % 5.8 % (3.3-12.3); Neutrophils % 69.4 % (41.7-73.7); Platelets 335 thou/uL (152-406); RBC Red Blood Cell Count 4.72 M/uL (3.86-4.86)
--- NOTE | 2024-06-13 14:02 | EDPHYS ---
Physician Documentation [facility] Name: Anna Pizarro Age: 33 yrs Sex: Female : 1990 Arrival Date: 06/13/2024 Time: 11:55 Bed 20 Private MD: ED Physician Hernando Perry HPI: 06/13 11:58 This 33 yrs old Female presents to ER via Unassigned with complaints of 8wks , kb High Blood Pressure. 11:58 Pt is a 33 year old female who presents for lower abd pain, low back pain that radiates kb down left leg, high blood sugar (150 -135) and headache that started last night. Was seen at [place] [facility] last weekend for vaginal bleeding, was told she was miscarrying, but US on Friday showed FHT. LMP 03/2024. 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 - Infectious Disease History:: Denies. - Social history:: Smoking status: Patient denies any tobacco usage or history of. ROS: 12:02 Constitutional: As per HPI kb Exam: 12:02 Constitutional: This is a well developed, well nourished patient who is awake, alert, kb and in no acute distress. Head/Face: Normocephalic, atraumatic. ENT: Moist Mucous membranes Cardiovascular: Regular rate Respiratory: Respirations even and unlabored. No increased work of breathing. Talking in full sentences Skin: Warm, dry with normal turgor. Normal color. MS/ Extremity: Pulses equal, no cyanosis. Neurovascular intact. Full, normal range of motion. Neuro: Awake and alert, GCS 15, oriented to person, place, time, and situation. 12:02 Abdomen/GI: Inspection: abdomen appears normal, Bowel sounds: normal, Palpation: soft, in all quadrants, moderate abdominal tenderness, in the right lower quadrant and left lower quadrant, Vital Signs: 12:07 BP 155 / 94; Pulse 86; Resp 18; Temp 97.6; Pulse Ox 100% on R/A; iw 14:26 BP 147 / 89; Pulse 79; Resp 20; Pulse Ox 100% ; bp MDM: 11:57 Medical Screening Exam initiated kb 11:57 Data reviewed: vital signs, nurses notes. kb 14:02 Differential diagnosis: threatened , abdominal pain. Counseling: I had a kb detailed discussion with the patient and/or guardian regarding the historical points, exam findings, and any diagnostic results supporting the discharge/admit diagnosis, lab results, radiology results, the need for outpatient follow up, an OB/Gyne specialist, to return to the emergency department if symptoms worsen or persist or if there are any questions or concerns that arise at home. 06/13 12:02 Order name: Abo/rh Typing; Complete Time: 13:54 kb 06/13 12:02 Order name: Basic Metabolic Panel; Complete Time: 13:50 kb 06/13 12:02 Order name: CBC with Diff; Complete Time: 13:25 kb 06/13 12:02 Order name: Test, Urine; Complete Time: 12:57 kb 06/13 12:02 Order name: Quantitative Hcg; Complete Time: 13:50 kb 06/13 12:02 Order name: Urinalysis w/ reflexes; Complete Time: 12:57 kb 06/13 12:02 Order name: US Transvaginal Ob; Complete Time: 13:11 kb 06/13 12:02 Order name: IV Saline Lock; Complete Time: 12:59 kb 06/13 12:02 Order name: Labs collected and sent; Complete Time: 12:59 kb 06/13 12:02 Order name: NPO; Complete Time: 12:59 kb Administered Medications: No medications were administered Disposition: 06/14 12:38 Co-signature as Attending Physician, Hernando Perry MD I agree with the assessment and marylu plan of care. Disposition Summary: 06/13/24 14:02 Discharge Ordered Notes: Location: Home kb Condition: Stable kb Diagnosis - 9 weeks gestation of kb Followup: kb - With: Emergency Department - When: As needed - Reason: Worsening of condition Followup: kb - With: Private Physician - When: 2 - 3 days - Reason: Recheck today's complaints, Continuance of care, Re-evaluation by your physician Discharge Instructions: - Discharge Summary Sheet kb - Abdominal Pain During kb Forms: - Medication Reconciliation Form kb - Antibiotic Education kb - Prescription Opioid Use kb - Patient Portal Instructions kb - Leadership Thank You Letter kb Signatures: Dispatcher [employer] EDDai Mercado, CLIENT CARE SPECIALIST-C CLIENT CARE SPECIALIST-Hernando Krishnan MD MD cha Williams, Irene, RN RN iw Curtis Hearn, RN RN bp Corrections: (The following items were deleted from the chart) 06/13 12: 12:02 ABO/RH TYPING+BB.LAB.BRZ ordered. EDMS EDMS 12: 12:02 BASIC METABOLIC PANEL+C.LAB.BRZ ordered. EDMS EDMS 12: 12:02 CBC+H.LAB.BRZ ordered. EDMS EDMS 12: 12:02 Test, Urine+UC.LAB.BRZ ordered. EDMS EDMS 12: 12:02 QUANTITATIVE HCG+C.LAB.BRZ ordered. EDMS EDMS 12: 12:02 Urinalysis+U.LAB.BRZ ordered. EDMS EDMS
--- NOTE | 2024-06-13 14:02 | ER ---
Nurse's Notes [facility] Name: Anna Pizarro Age: 33 yrs Sex: Female : 1990 Arrival Date: 06/13/2024 Time: 11:55 Bed 20 Private MD: Diagnosis: 9 weeks gestation of Presentation: 06/13 12:03 Chief complaint: Patient states: having abd pain and pain radiating down left leg and iw headache since last night ,her BS has been running 150 and 135 ,was seen at [place] [facility] last week for possible miscarriage , they found a heartbeat at her US on Friday. Coronavirus screen: At this time, the client does not indicate any symptoms associated with coronavirus-19. Ebola Screen: No symptoms or risks identified at this time. Initial Sepsis Screen: Does the patient meet any 2 criteria? No. Patient's initial sepsis screen is negative. Does the patient have a suspected source of infection? No. Patient's initial sepsis screen is negative. Risk Assessment: Do you want to hurt yourself or someone else? Patient reports no desire to harm self or others. 12:03 Method Of Arrival: Ambulatory iw 12:03 Acuity: EDWIN 3 iw 12:14 Onset of symptoms was April 2024. iw Triage Assessment: 12:10 General: Appears in no apparent distress. uncomfortable, Behavior is cooperative, bp appropriate for age, anxious. Pain: Complains of pain in left lower quadrant and right lower quadrant. EENT: No deficits noted. Neuro: No deficits noted. Cardiovascular: No deficits noted. Respiratory: No deficits noted. GI: Reports lower abdominal pain. : Reports vaginal bleeding that is. Derm: No deficits noted. Musculoskeletal: No deficits noted. 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 - Infectious Disease History:: Denies. - Social history:: Smoking status: Patient denies any tobacco usage or history of. Screenin:00 [facility] ED Fall Risk Assessment (Adult) History of falling in the last 3 months, bp including since admission No falls in past 3 months (0 pts) Confusion or Disorientation No (0 pts) Intoxicated or Sedated No (0 pts) Impaired Gait No (0 pts) Mobility Assist Device Used No (0 pt) Altered Elimination No (0 pt) Score/Fall Risk Level 0 - 2 = Low Risk Oriented to surroundings. Abuse screen: Denies threats or abuse. Denies injuries from another. Nutritional screening: No deficits noted. Tuberculosis screening: No symptoms or risk factors identified. Assessment: 12:00 General: Appears in no apparent distress. Behavior is cooperative, appropriate for age, bp anxious. Pain: Complains of pain in left lower quadrant and right lower quadrant. Vital Signs: 12:07 BP 155 / 94; Pulse 86; Resp 18; Temp 97.6; Pulse Ox 100% on R/A; iw 14:26 BP 147 / 89; Pulse 79; Resp 20; Pulse Ox 100% ; bp ED Course: 11:57 Patient arrived in ED. mr 11:57 Dai Peoples FNP-C [facility]. kb 11:57 Hernando Perry MD is Attending Physician. kb 12:00 Patient has correct armband on for positive identification. bp 12:00 No provider procedures requiring assistance completed. bp 12:05 Triage completed. iw 12:10 Arm band placed on. bp 12:24 Curtis Hearn, RN is Primary Nurse. bp 12:51 US Transvaginal Ob In Process Unspecified. EDMS 12:59 Initial lab(s) drawn, by me, sent to lab. Inserted saline lock: 20 gauge in right bp antecubital area, using aseptic technique. Blood collected. Flushed with 10 mL NS. 14:24 IV discontinued, intact, bleeding controlled, No redness/swelling at site. Pressure bp dressing applied. Administered Medications: No medications were administered Medication: 12:00 VIS not applicable for this client. bp Outcome: 14:02 Discharge ordered by . kb 14:24 Discharged to home ambulatory, bp 14:24 Condition: stable 14:24 Discharge instructions given to patient, Instructed on discharge instructions, follow up and referral plans. 14:27 Patient left the ED. bp Signatures: Dispatcher [employer] EDVA Dai Peoples FNP-C FNP-Marisa Alegria, Reg Reg Joyce Jackson RN RN iw Nadiya, Curtis, RN RN bp
[2024-06-13 14:32] VITALS: TEMP 97.6; O2SAT 100
[2024-06-13 14:34] VITALS: BP 147/89
== END 2024-06-13 14:27 | disposition home or self-care (01) ==
LOC: ER 11:55
DX: O26.891 Other specified pregnancy related conditions, first trimester (principal); Z3A.09 9 weeks gestation of pregnancy
CPT/HCPCS: 36415; 76817; 80048; 81001; 81025; 84702; 85025; 86900; 86901; 99283